=== PATIENT | female | born 1955 | race Caucasian/White ===

== ENCOUNTER 2019-08-13 13:29 | Observation (INO) | payer MEDICARE, MEDICAID, SELFPAY ==
[2019-08-13 13:40] VITALS: BP 156/88; PULSE 77; RESP 16; TEMP 36.4; O2SAT 98
--- NOTE | 2019-08-13 14:25 | W.ED.GENAD ---
Discharge Plan Disposition Patient Disposition: [facility] INPATIENT Condition: Stable Discharge Details Chief Complaint: PsychEval Clinical Impression: Acute depression Admit Date/Time: 08/13/19 21:12 Admit Provider: Elan Gonzales Attending Provider: Elan Gonzales Primary Care Provider: Mario Dalton ED Provider: Donnell Perdomo Discharge Data Discharge Date/Time-TO BE ENTERED AT DEPARTURE: 08/13/19 21:42 Medical Decision Making <CECILE Borrego - Last Filed: 08/14/19 16:35> This is a suicidal 63-year-old woman who presents to the ER extremely suicidal with plan and intent to harm herself. Patient does not want to fully disclose her mental health issues to me but does consent to seeing mental health provider. Patient feeling extremely anxious currently was given a dose of Valium 5 mg orally for her symptomatic relief. Patient is medically cleared for psych evaluation <Donnell Perdomo MD - Last Filed: 08/13/19 20:43> Received signout from Ms. Delaney. Please see her note regarding details initial presentation, plan of care. Patient medically stable and interviewed by mental health. Referral was placed to inpatient psychiatry. Huddle performed with care management. Patient care sitter at bedside. Patient awaits further disposition at 8:30 PM informed that no beds available tonight. Patient will be admitted pending further psychiatric disposition.. HPI <CECILE Borrego - Last Filed: 08/14/19 16:35> General Date/Time Provider Initiated Documentation: 08/13/19 14:22. HPI Narrative: Patient presents for psych evaluation. Patient is a 63-year-old woman who reports she is feeling extremely suicidal. She states she will kill herself. Patient reports specifically a plan to overdose on her medications and run her car in her garage. Patient denies specific medical concerns at this time. Patient does admit to feeling quite anxious at this time. Patient does not want to discuss circumstances for which she feels suicidal. She does consent to speaking with a mental health provider. Related Data Home Medications Medication Instructions Recorded Confirmed clonazepam 3 mg PO DAILY 08/13/19 08/13/19 melatonin 6 mg PO DAILY 08/13/19 08/13/19 quetiapine [Seroquel] 100 mg PO DAILY 08/13/19 08/13/19 ranitidine HCl 300 mg PO BID 08/13/19 08/13/19 ciprofloxacin HCl 250 mg PO Q12H #6 tab 08/14/19 magnesium oxide 500 mg PO DAILY #10 cap 08/14/19 Previous Rx's Medication Instructions Recorded ciprofloxacin HCl 250 mg PO Q12H #6 tab 08/14/19 magnesium oxide 500 mg PO DAILY #10 cap 08/14/19 Allergies Allergy/AdvReac Type Severity Reaction Status Date / Time levofloxacin [From Levaquin] Allergy Intermediate Swelling/Ed Unverified 08/13/19 13:46 annalisa trazodone AdvReac Intermediate Other (See Unverified 08/13/19 13:46 Comment) General Stated Complaint: PsychEval DAIN: 2 Review of Systems <CECILE Borrego - Last Filed: 08/14/19 16:35> Review of Systems ROS Unobtainable: All systems reviewed & are unremarkable except as noted in HPI and below Constitutional Constitutional: Denies chills and Denies fever(s) Respiratory Respiratory: Denies cough and Denies wheezing Psychiatric Psychiatric: Reports anxiety, Reports hopelessness and Reports suicidal ideation Allergic/Immunologic Allergic/Immunologic: Denies wheezing PFSH <CECILE Borrego - Last Filed: 08/14/19 16:35> Medical History Anxiety (Chronic) Depression (Chronic) Surgical History History of cholecystectomy (Chronic) History of hysterectomy (Chronic) Social History Smoking/Tobacco Use Status: Former Tobacco Use Alcohol Intake: current Alcohol Intake frequency: a few times a week Substance use type: does not use Do you feel safe at home: Yes Do you feel safe in your relationship?: Yes Exam <CECILE Borrego - Last Filed: 08/14/19 16:35> Narrative Exam Narrative: CONST: Healthy appearing patient, in no acute distress. Well hydrated. Alert and alert. HENMT: Head nomocephalic, normal to inspection. Atraumatic. Hearing grossly normal. EYES: General normal appearance. Alignment normal. Eyelids normal. Conjunctiva normal. NECK: Normal visual inspection. FROM. Trachea midline. No Midline tenderness. CHEST: Normal insepection of the chest. RESP: Normal respiratory effort. Speaking full sentences. No cough. No audible wheezing. No retractions. CARDIO: No JVD. MUSCULOSKELETAL: Normal Gait. FROM of all extremities. SKIN: Normal. Dry. No rashes. NEURO: Alert and awake. Speech clear. PSYCH: Depressed, tearful. Cooperative. Course <CECILE Borrego - Last Filed: 08/14/19 16:35> Vital Signs Vital signs: Vital Signs Temperature 36.4 C L 08/13/19 13:40 Pulse 77 08/13/19 13:40 Respiratory Rate 16 08/13/19 13:40 Blood Pressure 156/88 H 08/13/19 13:40 Pulse Oximetry 98 08/13/19 13:40 Temperature 36.4 C L 08/13/19 13:40 Temperature Source Tympanic 08/13/19 13:40 Pulse 77 08/13/19 13:40 Respiratory Rate 16 08/13/19 13:40 Respiratory Effort 08/13/19 13:43 Blood Pressure 156/88 H 08/13/19 13:40 Blood Pressure Position Supine 08/13/19 13:40 Pulse Oximetry 98 08/13/19 13:40 Oxygen Delivery Method Room Air 08/13/19 13:40 Oxygen Flow Rate 0 08/13/19 13:40 Pain Level 0 08/13/19 13:40 Sign Out <CECILE Borrego - Last Filed: 08/14/19 16:35> Sign Out Data: Sign Out Comment: Signed out pending disposition per mental health for suicidal ideation Last updated by Paradise Lange PA at 08/13/19 16:22
[2019-08-13 14:28] LABS: Bilirubin Negative (Negative); Blood Trace-lysed (Negative); Clarity Sl Cloudy (Clear); Glucose Negative (Negative); Ketones 15 mg/dL (Negative); Leukocyte Esterase Large (Negative); Nitrite Negative (Negative); Specific Gravity 1.015 (1.005-1.025); Urobilinogen 0.2 EU/dL (Up TO 0.2)
--- NOTE | 2019-08-13 14:36 | NUR.NOTE ---
Nursing Note: food ordered .
[2019-08-13 14:39] LABS: Bacteria Many HPF (Negative); C & S Indicated? Yes; Casts Negative LPF (Negative); Crystals Negative HPF (Negative); Epithelial Cells Many HPF (Negative); Mucus Negative (Negative); Other Cells Few Transitional (Negative); WBC >50 HPF (0-5)
[2019-08-13] MEDS: diazePAM 5 MG TAB PO (14:44)
--- NOTE | 2019-08-13 14:54 | NUR.NOTE ---
pt medicated as per mdo tolorating po intake Nursing Note:
[2019-08-13 15:03] LABS: Abs Immature Grans 0.01 k/cumm (0.0-0.09); Absolute Basophil Count 0.04 k/cumm (0.0-0.2); Absolute Eosinophil Count 0.05 k/cumm (0.0-0.7); Absolute Lymphocyte Count 1.18 k/cumm (1.2-3.4); Absolute Monocyte Count 0.61 k/cumm (0.11-0.7); Absolute Neutrophil Count 3.83 k/cumm (1.2-6.7); Basophils % 0.7; Eosinophils % 0.9; HCT 37.1 % (36.0-46.0); HGB 12.3 g/dL (12.0-15.5); Immature Grans % 0.2; Lymphocytes % 20.6; Mean Corp. HGB Concentration 33.2 g/dL (32.0-36.0); Mean Corpuscular Hemoglobin 32.8 pg (27.0-33.0); Mean Corpuscular Volume 98.9 fL (80-95); Mean Platelet Volume 9.7 fL (8.0-11.0); Monocytes % 10.7; Neutrophils % 66.9; Platelet Count 257 x1000/uL (130-400); RBC 3.75 m/cumm (4.00-5.20); RBC Distribution Width 14.5 % (11.7-14.6); White Blood Cell Count 5.72 k/cumm (4.4-10.8)
--- NOTE | 2019-08-13 15:06 | NUR.NOTE ---
Nursing Note: Patient is in with mental health at this very moment.
[2019-08-13 15:16] LABS: *AMPHETAMINES SCREEN URINE Negative (Negative); *BARBITURATES SCREEN URINE Negative (Negative); *BENZODIAZEPINES SCREEN URINE Negative (Negative); Cannabinoids THC Negative (Negative); Cocaine Screen,Urine Negative (Negative); METHADONE URINE SCREEN Negative (Negative); OPIATES URINE SCREEN Negative (Negative)
[2019-08-13 15:22] LABS: Magnesium 1.6 mg/dL (1.8-2.4)
[2019-08-13 15:25] LABS: Tricyclic Antidepressants Negative (Negative)
[2019-08-13 15:34] LABS: ALT 19 U/L (14-59); AST 20 U/L (15-37); Albumin 4.1 g/dL (3.4-5.0); Alkaline Phosphatase 66 U/L (46-116); Anion Gap 9.4 mmol/L (3-11); BUN 11 mg/dL (7-18); Bilirubin, Total 0.7 mg/dL (0.2-1.0); CO2 29.6 mmol/L (21.0-32.0); CREATININE 0.82 mg/dL (0.55-1.02); Calcium 10.1 mg/dL (8.5-10.1); Chloride 99 mmol/L (98-107); Glucose 91 mg/dL (70-100); Potassium 3.7 mmol/L (3.5-5.1); Sodium 138 mmol/L (136-145); TSH 0.91 uIU/mL (0.36-3.74); Total Protein 7.6 g/dL (6.4-8.2)
[2019-08-13 15:41] LABS: Salicylate < 2.8 mg/dL (2.8-20.0)
[2019-08-13 15:43] LABS: Acetaminophen < 2 ug/mL (10-30)
[2019-08-13 15:52] LABS: ETHANOL BLOOD < 3.0 mg/dL (<3)
[2019-08-13] MEDS: Magnesium Oxide 400 MG TAB PO (16:16)
--- NOTE | 2019-08-13 17:17 | PDOC.CMSAFED ---
- If Service Date Differs Date of service: 08/13/19 Time of Service: 17:17 Care Management Safety Plan Sadnra is a 63 year old woman who presented to the ED with depression and suicidal ideation. She is from the [facility] but because she has relatives who work in the local hospital there, she chose to come to [facility]. Sandra has had several hospitalizations for depression and has made suicide attempts in the past. She has admitted to having a plan for suicide (automobile with a hose and overdose of medication) and she also has intent. Sandra is seeking voluntary treatment for her depression. She was seen by Monroe, a Mental Health crisis screener, and referrals have been sent to [facility] and [facility]. SHANNON met with Sandra who appeared sad, withdrawn and anxious. She was wrapped in a blanket and was crying while talking. SHANNON discussed the safety plan and [facility] policy with her and she agreed to all of the provisions outlined below. She did request that she be able to speak to her son Durga by phone. An interdepartmental huddle was coordinated by SHANNON for safety planning considerations and was attended by Monroe, crisis screener, Lynnette, Nursing Field Advisor, VIRGINIA Flores, Dr. Perdomo and SHANNON Holt. and meet with patient to review [facility] policy and safety plan, establish individual wishes for treatment and maintain patient rights. Josep note safety plan below to guide patient care, establish individual wishes for treatment and maintain patient rights. SAFETY PLAN: 1. Will remain on suicide precautions and in paper clothes. 2. Will remain in room under direct supervision of one-on-one staff at all times provided by DION, DEZ flake or shred roll operator. 3. May have paper cups, plates, finger foods as well as a cardboard spoon with which to eat meals. 4. Follow [facility] Management of the Admitted Behavioral Health Patient policy. 5. Comfort bath system only. 6. No personal belongings 7. No visitors. 8. Phone contact limited to son Durga, at the discretion of nursing. 9. Due to VOLUNTARY status, if patient wishes to leave [facility], the [facility] harvest worker field crop must be contacted to re-evaluate patient prior to patient exiting the building.
[2019-08-13] MEDS: diazePAM 2 MG TAB 2.5 MG PO (18:13)
--- NOTE | 2019-08-13 18:16 | NUR.NOTE ---
pt having increased anxiety md made aware orders recived for medication pt agree able to taking medications Nursing Note:
--- NOTE | 2019-08-13 19:12 | NUR.NOTE ---
Assumed care of pt, report from partha. Pt lying in bed in NAD. 1:[address] Pt feeling more calm s/p medication. Discussed plan with pt, aware awaiting inpt placement. Pt states she does not want to go to [facility]. Offered warm blanket, beverage, pt declined.
--- NOTE | 2019-08-13 20:36 | NUR.NOTE ---
Per mental health, no bed available tonight. Pt agreeable to being admitted and having re-eval. Phone provided, pt called mother to inform of admission.
[2019-08-13 21:02] VITALS: BP 131/83; PULSE 69; RESP 16; TEMP 37.1; O2SAT 94
--- NOTE | 2019-08-13 21:20 | W.PM.HP.N ---
Date of service: 08/13/19 Time of Service: 21:20 Assessment and Plan Assessment and plan (1) Suicidal ideation: Status: Acute Assessment and plan: This is a 63-year-old lady here for suicidal ideation with a plan. She is awaiting voluntary inpatient psychiatric evaluation and treatment. She will be observed one-on-one for safety. (2) Anxiety: Status: Chronic Assessment and plan: Patient usually is on Klonopin but for now will be given Valium as needed during his hospital stay. (3) Depression: Status: Chronic Assessment and plan: Patient will be evaluated and treated further for depression with as an inpatient but for now will be continued on her usual outpatient medication. Qualifiers: Active/Remission status: currently active Depression Type: major depressive disorder Major depression episode severity: severe Major depression recurrence: recurrent Psychotic features: without psychotic features Qualified Code(s): F33.2 - Major depressive disorder, recurrent severe without psychotic features (4) Pyuria, sterile: Status: Acute Assessment and plan: Patient is asymptomatic but will be observed for symptoms while culture is pending and if culture appears positive start oral therapy in the morning. History of Present Illness History of Present Illness Chief Complaint: Suicidal ideation with plan Narrative: This is a 63-year-old lady who was brought to the emergency room for evaluation by psychiatry because of suicidal ideation with plans to overdose on the medicines that she had at home or to kill herself with carbon monoxide in her garage with her car running. She did not want to discuss the details of her suicidal thoughts with the medical team but did review this with psychiatry who could not place her into voluntary inpatient psychiatric care tonight, therefore she is to be admitted to the medical floor for observation. She did have labs that showed a low magnesium and was placed on oral magnesium and also had a urine that looked possibly infected with a culture pending but no symptoms reported. She is allergic to Levaquin and not was started on treatment and this will be held until further culture reports or if she has symptoms. This can be reviewed in the morning. The patient was withdrawn and not wanting to talk when I first met her with the sheets pulled over her head. She offers no complaints. Review of Systems Review of Systems Narrative: 13 point review of systems otherwise unrevealing or negative as patient allows with history. [facility] Medical History Anxiety (Chronic) Depression (Chronic) Surgical History History of cholecystectomy (Chronic) History of hysterectomy (Chronic) Social History Smoking/Tobacco Use Status: Former Tobacco Use Alcohol Intake: current Alcohol Intake frequency: a few times a week Substance use type: does not use Do you feel safe at home: Yes Do you feel safe in your relationship?: Yes Meds Home Medications and Allergies Home Medications Medication Instructions Recorded Confirmed Type clonazepam 3 mg PO DAILY 08/13/19 08/13/19 History melatonin 6 mg PO DAILY 08/13/19 08/13/19 History quetiapine [Seroquel] 100 mg PO DAILY 08/13/19 08/13/19 History ranitidine HCl 300 mg PO BID 08/13/19 08/13/19 History Allergies Allergy/AdvReac Type Severity Reaction Status Date / Time levofloxacin [From Levaquin] Allergy Intermediate Swelling/Ed Unverified 08/13/19 13:46 annalisa trazodone AdvReac Intermediate Other (See Unverified 08/13/19 13:46 Comment) Exam Narrative Exam Narrative: CONST: Healthy appearing patient, in no acute distress. Well hydrated. Alert and alert. Flattened affect with poor eye contact. HENMT: Head nomocephalic, normal to inspection. Atraumatic. Hearing grossly normal. EYES: General normal appearance. Alignment normal. Eyelids normal. Conjunctiva normal. NECK: Supple, FROM. Trachea midline. No Midline tenderness. CHEST: Normal insepection of the chest. RESP: Normal respiratory effort and clear. Speaking full sentences. No cough. No audible wheezing. No retractions. CARDIO: No JVD. RRR without mumur/gallop. MUSCULOSKELETAL: Normal Gait in ER. FROM of all extremities. No edema, clubbing or cyanosis. SKIN: Darkly tanned and brown. Dry. No rashes. NEURO: Alert and awake. Speech clear. CN II through XII grossly intact, no focal motor deficits. PSYCH: Depressed, tearful. Cooperative. Results Labs Result diagrams: 08/13/19 14:55 08/13/19 14:55 Labs: Laboratory Results - last 24 hr 08/13/19 08/13/19 08/13/19 14:20 14:20 14:55 WBC RBC Hgb Hct MCV MCH MCHC RDW Plt Count MPV Immature Gran % Neutrophils % Lymphocytes % Monocytes % Eosinophils % Basophils % Absolute Neutrophils Absolute Lymphocytes Absolute Monocytes Absolute Eosinophils Absolute Basophils Sodium 138 Potassium 3.7 Chloride 99 Carbon Dioxide 29.6 Anion Gap 9.4 BUN 11 Creatinine 0.82 Estimated GFR/1.73 m2 >= 60.00 Glucose 91 Calcium 10.1 Magnesium Total Bilirubin 0.7 AST 20 ALT 19 Alkaline Phosphatase 66 Total Protein 7.6 Albumin 4.1 TSH 0.91 Urine Color Yellow Urine Clarity Sl cloudy Urine pH 6.0 Ur Specific [place] 1.015 Urine Protein Negative Urine Ketones 15 H Urine Blood Trace-lysed H Urine Nitrite Negative Urine Bilirubin Negative Urine Urobilinogen 0.2 Ur Leukocyte Esterase Large H Urine RBC 3-5 H Urine WBC >50 Ur Epithelial Cells Many Urine Crystals Negative Urine Bacteria Many Urine Casts Negative Urine Mucus Negative Urine Other Few transitional Ur Culture Indicated? Yes Urine Glucose Negative Salicylates Urine Opiates Screen Negative Urine Methadone Screen Negative Acetaminophen Ur Barbiturates Screen Negative Ur Tricyclics Screen Negative Ur Amphetamines Screen Negative U Benzodiazepines Scrn Negative Urine Cocaine Screen Negative Ur THC Screen Negative Ethyl Alcohol < 3.0 08/13/19 08/13/19 08/13/19 14:55 14:55 14:55 WBC 5.72 RBC 3.75 L Hgb 12.3 Hct 37.1 MCV 98.9 H MCH 32.8 MCHC 33.2 RDW 14.5 Plt Count 257 MPV 9.7 Immature Gran % 0.2 Neutrophils % 66.9 Lymphocytes % 20.6 Monocytes % 10.7 Eosinophils % 0.9 Basophils % 0.7 Absolute Neutrophils 3.83 Absolute Lymphocytes 1.18 L Absolute Monocytes 0.61 Absolute Eosinophils 0.05 Absolute Basophils 0.04 Sodium Potassium Chloride Carbon Dioxide Anion Gap BUN Creatinine Estimated GFR/1.73 m2 Glucose Calcium Magnesium 1.6 L Total Bilirubin AST ALT Alkaline Phosphatase Total Protein Albumin TSH Urine Color Urine Clarity Urine pH Ur Specific [place] Urine Protein Urine Ketones Urine Blood Urine Nitrite Urine Bilirubin Urine Urobilinogen Ur Leukocyte Esterase Urine RBC Urine WBC Ur Epithelial Cells Urine Crystals Urine Bacteria Urine Casts Urine Mucus Urine Other Ur Culture Indicated? Urine Glucose Salicylates < 2.8 L Urine Opiates Screen Urine Methadone Screen Acetaminophen < 2 L Ur Barbiturates Screen Ur Tricyclics Screen Ur Amphetamines Screen U Benzodiazepines Scrn Urine Cocaine Screen Ur THC Screen Ethyl Alcohol Last Vital Signs Temp 37.1 C 08/13/19 21:02 Pulse 69 08/13/19 21:02 Resp 16 08/13/19 21:02 BP 131/83 08/13/19 21:02 Pulse Ox 94 L 08/13/19 21:02
--- NOTE | 2019-08-13 21:38 | NUR.NOTE ---
report to Chiquita. pt to go to room 234
[2019-08-13 22:04] VITALS: BP 145/79; PULSE 72; RESP 18; TEMP 37.1; O2SAT 96
[2019-08-13] MEDS: Melatonin 3 MG TAB PO (22:26)
[2019-08-13] MEDS: QUEtiapine 100 MG TAB PO (22:26)
[2019-08-14] MEDS: Mylanta Suspension 30 ML CUP PO (06:05)
[2019-08-14] MEDS: Magnesium Oxide 400 MG TAB PO (12:41)
--- NOTE | 2019-08-14 13:42 | DSE_ITS ---
Date of service: 08/14/19 Time of Service: 13:42 DS: Diagnosis Discharge Diagnosis (1) Suicidal ideation: Status: Acute (2) Anxiety: Status: Chronic (3) Depression: Status: Chronic (4) Pyuria, sterile: Status: Acute Discharge Plan Disposition Patient Disposition: HOME Condition: Stable Discharge Details Chief Complaint: PsychEval Clinical Impression: Acute depression Reason For Visit: SUICIDAL IDEATION Admit Date/Time: 08/13/19 21:12 Admit Provider: Elan Gonzales Attending Provider: Elan Gonzales Primary Care Provider: Mario Dalton ED Provider: Donnell Perdomo Hospital Course Hospital Course: Sandra Hopson is a very pleasant 63 year old female with a past medical history of depression and anxiety who presented to the [facility] ED on 08/13/19 with suicidal ideation with a plan to overdose on medication or to sit in her garage in her car with it running in an attempt be poisoned by carbon monoxide. Her labs at the time of admission were notable for low magnesium, and urinalysis which showed leukocyte esterase. She was admitted to the transition unit on voluntary status with a mental health consult. By the following morning, she reported feeling better. She was alert and talkative. She denied suicidal ideation. She was cleared for discharge home by mental health with a plan for support in the community. She endorsed dysuria and cloudy urine. Her urine culture was growing 50-100,000 colonies of gram positive maxim. She reports that she has tolerated cipro in the past. She will be discharged home on Cipro. She is also discharged home with magnesium supp lementation and follow up magnesium level ordered. She will follow up with her PCP next week on 08/24/19 as scheduled. Home Meds and New Rx's Prescriptions: New ciprofloxacin HCl 250 mg tablet 250 mg PO Q12H Qty: 6 RF: 0 magnesium oxide 500 mg capsule 500 mg PO DAILY Qty: 10 RF: 0 Continued ranitidine HCl 300 mg Tablet 300 mg PO BID RF: 0 clonazepam 1 mg Tablet 3 mg PO DAILY RF: 0 melatonin 3 mg Tablet 6 mg PO DAILY RF: 0 quetiapine [Seroquel] 100 mg Tablet 100 mg PO DAILY RF: 0 Discharge Instructions Instructions: Urinary Tract Infection in Women (DC), Suicide Prevention for Adults (DC) Additional Instructions: Take magnesium daily. Take antibiotics until they are gone. Follow up with your PCP next week. Follow up as planned with [facility]. Return to the ED as needed. Take care! Stand Alone Forms: Nursing Discharge Form Referrals: Mario Dalton [Primary Care Provider] - 08/21/19 12:40 pm Activity:: Activity as Tolerated Equipment/Supplies:: No Equipment Needed Diet:: As Tolerated Discharge Orders Discharge Orders: Discharge Order (Routine); Ordered 08/14/19 Ordered By: Adriana Guevara Other Ambulatory Orders: Magnesium (Routine) Timeframe: [id number] Location: None Selected Ordered By: Adriana Guevara DS: Summary Status at Discharge Functional status at discharge: independent ambulation Overall status at discharge: patient is back to baseline Mental Status: mental status grossly normal Speech and Movement: speech and movement normal Mood: congruent mood Affect: normal affect Exam Narrative Exam Narrative: General: well appearing, awake and alert, sitting up on stretcher. In NAD. Psyche: pleasant mood, talkative, smiling. HEENT: normocephalic, atraumatic, pupils equal and round, EOMI, mucous membranes moist. Neck: supple, no JVD. Cardiovascular: heart has regular rate and rhythm, no murmur appreciated. Respiratory: respirations even and unlabored, lung sounds clear bilaterally. Extremities: no clubbing, cyanosis or edema. Psych Mental Status: mental status grossly normal Speech and Movement: speech and movement normal Mood: congruent mood Affect: normal affect DS: Data Vitals/I&O Vitals and I&O: Vital Signs Temperature 37.1 C 08/13/19 22:04 Temperature Source Oral 08/13/19 21:02 Pulse 72 08/13/19 22:04 Pulse Rhythm Regular 08/13/19 22:04 Respiratory Rate 18 08/13/19 22:04 Respiratory Effort 08/14/19 00:03 Respiratory Depth Normal 08/14/19 00:03 Respiratory Pattern Normal 08/14/19 00:03 Blood Pressure 145/79 H 08/13/19 22:04 Blood Pressure Position Supine 08/13/19 13:40 Pulse Oximetry 96 08/13/19 22:04 Oxygen Delivery Method Room Air 08/13/19 22:04 Oxygen Flow Rate 0 08/13/19 22:04 Pain Level 0 08/13/19 21:02 Intake & Output 08/13/19 08/14/19 08/14/19 23:59 11:59 23:59 Weight 58.967 kg Other: Comment [facility] Methods Toilet Data Completed and Pending Labs on day of discharge: Labs from last 24 hours 08/13/19 08/13/19 08/13/19 14:55 14:55 14:55 WBC 5.72 RBC 3.75 L Hgb 12.3 Hct 37.1 MCV 98.9 H MCH 32.8 MCHC 33.2 RDW 14.5 Plt Count 257 MPV 9.7 Immature Gran % 0.2 Neutrophils % 66.9 Lymphocytes % 20.6 Monocytes % 10.7 Eosinophils % 0.9 Basophils % 0.7 Absolute Neutrophils 3.83 Absolute Lymphocytes 1.18 L Absolute Monocytes 0.61 Absolute Eosinophils 0.05 Absolute Basophils 0.04 Sodium Potassium Chloride Carbon Dioxide Anion Gap BUN Creatinine Estimated GFR/1.73 m2 Glucose Calcium Magnesium 1.6 L Total Bilirubin AST ALT Alkaline Phosphatase Total Protein Albumin TSH Urine Color Urine Clarity Urine pH Ur Specific [place] Urine Protein Urine Ketones Urine Blood Urine Nitrite Urine Bilirubin Urine Urobilinogen Ur Leukocyte Esterase Urine RBC Urine WBC Ur Epithelial Cells Urine Crystals Urine Bacteria Urine Casts Urine Mucus Urine Other Ur Culture Indicated? Urine Glucose Salicylates < 2.8 L Urine Opiates Screen Urine Methadone Screen Acetaminophen < 2 L Ur Barbiturates Screen Ur Tricyclics Screen Ur Amphetamines Screen U Benzodiazepines Scrn Urine Cocaine Screen Ur THC Screen Ethyl Alcohol 08/13/19 08/13/19 08/13/19 14:55 14:20 14:20 WBC RBC Hgb Hct MCV MCH MCHC RDW Plt Count MPV Immature Gran % Neutrophils % Lymphocytes % Monocytes % Eosinophils % Basophils % Absolute Neutrophils Absolute Lymphocytes Absolute Monocytes Absolute Eosinophils Absolute Basophils Sodium 138 Potassium 3.7 Chloride 99 Carbon Dioxide 29.6 Anion Gap 9.4 BUN 11 Creatinine 0.82 Estimated GFR/1.73 m2 >= 60.00 Glucose 91 Calcium 10.1 Magnesium Total Bilirubin 0.7 AST 20 ALT 19 Alkaline Phosphatase 66 Total Protein 7.6 Albumin 4.1 TSH 0.91 Urine Color Yellow Urine Clarity Sl cloudy Urine pH 6.0 Ur Specific [place] 1.015 Urine Protein Negative Urine Ketones 15 H Urine Blood Trace-lysed H Urine Nitrite Negative Urine Bilirubin Negative Urine Urobilinogen 0.2 Ur Leukocyte Esterase Large H Urine RBC 3-5 H Urine WBC >50 Ur Epithelial Cells Many Urine Crystals Negative Urine Bacteria Many Urine Casts Negative Urine Mucus Negative Urine Other Few transitional Ur Culture Indicated? Yes Urine Glucose Negative Salicylates Urine Opiates Screen Negative Urine Methadone Screen Negative Acetaminophen Ur Barbiturates Screen Negative Ur Tricyclics Screen Negative Ur Amphetamines Screen Negative U Benzodiazepines Scrn Negative Urine Cocaine Screen Negative Ur THC Screen Negative Ethyl Alcohol < 3.0 Preliminary micro results at discharge 08/13/19 14:20 Urine Culture - Preliminary Urine - Reflex from Ua Gram Positive Maxim PFSH Medical History Anxiety (Chronic) Depression (Chronic) Surgical History History of cholecystectomy (Chronic) History of hysterectomy (Chronic) Social History Smoking/Tobacco Use Status: Former Tobacco Use Alcohol Intake: current Alcohol Intake frequency: a few times a week Substance use type: does not use Do you feel safe at home: Yes Do you feel safe in your relationship?: Yes
--- NOTE | 2019-08-14 17:09 | PDOC.CMDIS ---
- If Service Date Differs Date of service: 08/14/19 Time of Service: 17:09 LACE Index Scoring Tool - Questions: Length of Stay (in days): 1 Acuity (Admit via E.D.?): Yes E.D. Visits: 1 - Answers: Total Score: 5 Risk of Readmission: Low Risk Care Management Discharge Reason for Hospitalization: suicidal ideation Discharge Plan: Sandra will be discharged home and follow up with her care providers. She will receive phone calls from crisis screeners 2-3 times a day for the next few days. She will transport by herself via private vehicle. Patient/Family Education Needs: Discharge plan, limitations, follow up care, Ask Me Three.
== END 2019-08-14 14:18 | disposition home or self-care (01) ==
LOC: ER 21:20 → MS 21:46
PROVIDERS: Physician Assistant; Admitting Provider Family Medicine; Emergency Provider Emergency Medicine; PCP Family Medicine; Visit Provider Internal Medicine
DX: F32.89 Other specified depressive episodes (principal); R45.851 Suicidal ideations; F41.9 Anxiety disorder, unspecified; R82.81 Pyuria; E83.42 Hypomagnesemia; Z75.1 Person awaiting admission to adequate facility elsewhere; B95.1 Streptococcus, group B, as the cause of diseases classified elsewhere
CPT/HCPCS: 36415; 80053; 80307; 87077; 99219; 99239; 99285; 80320; 80329; 81003; 81015; 83735; 84443; 85025; 87086; 87186; 99217; 99284; G0378

== ENCOUNTER 2020-12-02 14:55 | Emergency (ER) | payer MEDICARE, MEDICAID, SELFPAY ==
[2020-12-02 15:01] VITALS: BP 161/95; PULSE 107; RESP 20; TEMP 36.9; O2SAT 95
--- OUTSIDE RECORDS SUMMARY | 2020-12-02 15:25 | XMS_ITS ---
:1955 Author Care Team Providers Name Role Phone LEANNE ROSA MD Primary Care Provider [phone] JACK BAUER MD General Surgeon [phone] Allergies Code Code System Name Reaction Severity Status Onset 709886 RxNorm Levaquin ? ? Active ? 06535 RxNorm Tramadol ? ? Active ? 459996 RxNorm Lamictal ? ? Deactivated ? Notes: 07/24/2020 reviewed Medications Name Status Start Date Stop Date ? ? acetaminophen 300 mg-codeine 30 mg tablet Completed 200910/23/2010 1-2 Tablet: every 4-6 hours as needed Activella 1 mg-0.5 mg tablet Completed 03/26/2009 Tablet: QD Adderall 5 mg tablet Completed 06/26/2013 07/30/2013 1 Tablet: oral daily albuterol sulfate 1.25 mg/3 mL solution for nebulization Complet ed 01/12/2017 07/15/2017 1 (one) nebule nebule: twice a day as needed for coughing/s hortness of breath amoxicillin 875 mg-potassium Completed ? 09/2020 clavulanate 125 mg tablet aspirin 81 mg tablet,delayed release Completed 08/09/2013 02/06/2014 1 (one) Tablet DR: daily atenolol 25 mg tablet Completed 08/14/2008 08/14/2008 1 (one) Tablet: Daily Ativan 1 mg tablet Completed 01/10/2015 05/13/2015 1 (one) Tablet: tid - three times a day azithromycin 250 mg tablet Completed ? 06/04 bacitracin 500 unit/gram eye Completed ? 04/2018 ointment Bactrim DS 800 mg-160 mg tablet Completed 08/17/2014 08/27/2014 1 (one) Tablet: every 12 hrs Belsomra 20 mg tablet Completed 08/21/2015 08/21/2015 1 (one) Tablet: at bedtime Calcium 500 + D 500 mg (1,250 mg)-200 unit tablet Completed 02/04/2015 05/13/2015 1 (one) Tablet Tablet: twice daily as needed ciprofloxacin 250 mg tablet Completed ? 08/07 Take 1 tablet every 12 hours by oral route. ciprofloxacin 500 mg tablet Completed ? 08/07 citalopram 10 mg tablet Completed 08/09/2013 02/07/20 14 1 Tablet: daily clonazepam 0.5 mg tablet Completed ? 018 clonazepam 1 mg tablet Active ? Not avail able cod liver oil capsule Completed 07/01/2010 07/01/2010 1 (one) Capsule: daily Combivent 18 mcg-103 mcg/actuation aerosol inhaler Completed 06/17/2013 07/30/2013 2 (two) puff(s): qid - four times a day Combivent Respimat 20 mcg-100 mcg/actuation solution for inhalat ion Completed ? 08/21/2019 Inhale 1 puff 4 times a day by inhalation route. Cymbalta 30 mg capsule,delayed release Completed 8 09/13/2008 1 (one) Capsule Part: daily Cytomel 25 mcg tablet Completed 10/19/2013 11/18/2013 1 Tablet: daily diazepam 5 mg tablet Active ? Not availab le doxepin 25 mg capsule Completed 10/25/2014 02/10/2015 1 (one) Capsule: qd - daily esomeprazole magnesium 40 mg capsule,delayed release Completed ? 04/17/2020 TAKE ONE CAPSULE BY MOUTH EVERY DAY metronidazole 500 mg tablet Active ? Not available Floranex 100 million cell oral granules in packet Completed 07/15/2017 07/26/2017 1 (one) Packet: three times daily folic acid 1 mg tablet Completed 05/08/2015 7 1 (one) Tablet: daily gabapentin 400 mg capsule Completed 06/19/20142013 2 (two) Capsule: at bedtime Geodon 20 mg capsule Completed 07/23/2008 07/23/2008 1 (one) Capsule: two times daily Glucosamine-Chondroitin Complex capsule Completed 02/11/20 10 02/10/2010 1 (one) Capsule: three times daily Guaifenesin AC 10 mg-100 mg/5 mL oral liquid Completed 01/201302/07/2013 5-10 ml Syrup: every 4 to 6 hours as needed for cough hydrochlorothiazide 25 mg tablet Completed 07/02/2013 07/12/2013 1 Tablet: daily hydroxyzine HCl 50 mg tablet Completed 05/07/201408/2014 1 (one) Tablet: Every 6 hours as needed ibuprofen 800 mg tablet Completed 08/17/2014 01/11/20 15 1 (one) Tablet Tablet: every 8 hrs as needed Imodium A-D 2 mg tablet Completed 10/13/2010 10/13/20 10 1 (one) Tablet: three times daily, as needed Incruse Ellipta 62.5 mcg/actuation powder for inhalation Complet ed 11/23/2016 07/26/2017 1 (one) Aero Pow Br Act Aero Pow Br Act: daily indomethacin 50 mg capsule Completed 07/01/201007/01 1 (one) Capsule: three times daily ipratropium 0.5 mg-albuterol 3 mg (2.5 mg base)/3 mL n ebulization soln Completed ? 08/21/2019 1 Solution: qid - four times a day Keflex 500 mg capsule Active ? Not availa ble Take 1 capsule every 6 hours by oral route for 10 days. Klor-Con M20 mEq tablet,extended release Completed 014 11/27/2014 1 (one) Tablet ER Tablet ER: DAILY lamotrigine 100 mg tablet Active ? Not av ailable Take 0.5 tablets every day by oral route. lamotrigine 25 mg tablet Active ? Not abdirahman ilable Take 2 tablets every day by oral route. Levaquin 500 mg tablet Completed 10/21/2009 9 1 (one) Tablet: daily diphenoxylate-atropine 2.5 Active ? Not a vailable mg-0.025 mg tablet Maalox Maximum Strength 400 mg-400 mg-40 mg/5 mL oral suspen stas Completed 08/09/2013 08/09/2013 15 Milliliter(s): four times daily, as needed Macrobid 100 mg capsule Completed 08/01/2017 08/06/20 17 1 (one) Capsule: two times daily magnesium 400 mg (as magnesium oxide) capsule Completed 07/26/2017 Capsule: daily magnesium gluconate 27 mg magnesium (500 mg) tablet Completed ? 08/20/2019 Take 0.5 tablets 4 times a day by oral route for 7 days. magnesium oxide 400 mg (241.3 mg magnesium) tablet Completed 08/22/2013 09/30/2014 1 (one) Tablet: two times daily magnesium oxide 500 mg tablet Active ? No t available TAKE ONE TABLET BY MOUTH EVERY DAY meclizine 25 mg chewable tablet Completed 10/23/2010 10/23/2010 as Directed Tablet Chewable: As directed melatonin 3 mg tablet Active ? Not availa ble Take 2 tablets every day by oral route at bedtime. methimazole 5 mg tablet Completed 09/30/2014 10/25/20 14 1 (one) Tablet: three times daily mirtazapine 15 mg tablet Completed 03/26/2009 009 1 (one) Tablet: at bedtime naltrexone 50 mg tablet Completed 05/08/2015 08/21/20 15 1 (one) Tablet: once daily Nexium Packet 20 mg granules delayed release for susp Completed 07/16/2008 07/20/2008 unknown Packet: two times daily nicotine 14 mg/24 hr daily transdermal patch Completed 10/03/2013 1 Patch 24HR: qd - daily nicotine 21 mg/24 hr daily transdermal patch Completed 06/26/2013 1 Patch 24HR: qd - daily nicotine 21mg/24hr-14mg/24hr-7mg/24hr daily transderm patches,sequentl Completed 08/12/2009 10/21/2009 1 (one) Patch(es): daily nicotine 7 mg/24 hr daily transdermal patch Completed 10/0712/17/2013 1 Patch 24HR: daily nitrofurantoin macrocrystal Completed ? 04/2018 100 mg capsule nitroglycerin 0.4 mg sublingual tablet Completed 8 08/14/2008 1 (one) SL Tab: every 5 minutes x 3 as needed for chest pain omega 3s 300 [id number]-fish oil 1,000 mg capsule,delayed re lease Completed 08/09/2013 10/25/2014 1 Capsule: qd - daily omeprazole 20 mg capsule,delayed release Active ? Not available TAKE ONE CAPSULE BY MOUTH TWICE A DAY One-Per-Day [place]-3 684 mg-1,200 mg capsule,delayed release Completed 07/01/2010 07/01/2010 1 (one) Capsule: daily Percocet 5 mg-325 mg tablet Completed 08/30/201308/08 2 (two) Tablet: every four hours, as needed potassium chloride 20 mEq oral packet Completed 09/13/2008 09/13/2008 1 (one) Packet: daily pramipexole 0.125 mg tablet Completed 01/06/2015 04/0 04/2015 1 (one) Tablet Tablet: daily at bedtime prednisone 10 mg tablet Completed 06/17/2013 07/05/20 13 1 (one) Tablet: As directed prednisone 20 mg tablet Completed 05/12/2014 05/17/20 14 2 (two) Tablet: daily Prevacid 30 mg capsule,delayed release Completed 05/30/2006 1 (one) Capsule DR: Daily Probiotic Completed ? 05/08/2020 1 daily Protonix 40 mg tablet,delayed release Completed 09/16/2014 09/30/2014 1 (one) Tablet DR: daily Proventil HFA 90 mcg/actuation aerosol inhaler Completed 0 11/10/2009 11/10/2009 2 (two) Puff(s): every four-six hours Pyridium 100 mg tablet Active ? Not avail able 1 Tablet: tid - three times a day Pyridium 200 mg tablet Completed 06/03/2015 5 1 (one) Tablet: every eight hours quetiapine 100 mg tablet Active ? Not abdirahman ilable ranitidine 300 mg tablet Active ? Not abdirahman ilable risperidone 2 mg tablet Completed 01/15/2013 01/16/20 13 1 Tablet: at night Robaxin 500 mg tablet Completed 10/13/2010 10/13/2010 1 (one) Tablet: Every 6 hours as needed Spiriva with HandiHaler 18 mcg and inhalation capsules Completed 12/08/2015 12/17/2015 1 (one) breath: daily Symbicort 160 mcg-4.5 Active ? Not availa ble mcg/actuation HFA aerosol inhaler temazepam 15 mg capsule Completed ? 06/12/20 18 thiamine HCl (vitamin B1) 100 mg tablet Completed 08/21/20 15 08/21/2015 1 (one) Tablet: once daily tramadol 50 mg tablet Completed 11/24/2009 11/24/2009 1 (one) Tablet: four times daily, as needed trazodone 150 mg tablet Completed ? 06/12/20 18 triamcinolone acetonide 0.025 Completed ? % lotion Tylenol 325 mg tablet Completed 08/09/2013 02/06/2014 2 (two) Tablet: every six hours, as needed vancomycin 125 mg capsule Active ? Not av ailable Vitamin D2 1,250 mcg (50,000 unit) capsule Completed 07/0107/01/2010 1 (one) Capsule: Once weekly Xopenex HFA 45 mcg/actuation aerosol inhaler Completed 07/30/2008 2 (two) breath: every 4-6 hours as needed Notes: 07/24/2020 patient reports 6mg at night, Nac two 600 mg capsules. Fish oil one daily, Omeprazole one daily 07/24/2020 verbal review with patient Problems Name Status Onset Date Source ? Thyrotoxicosis Active ? History Vitamin D Deficiency Active ? History Hyperlipidemia Active ? History Hypomagnesemia Active ? History Hypokalemia Active ? History Overweight Active ? History Recurrent Major Depression Unknown ? Histo ry Severe Recurrent Major Depression without Active ? History Psychotic Features Recurrent Major Depressive Episodes, in Full Unknown ? History Remission Anxiety Disorder Active ? History Tobacco User Active ? History Posttraumatic Stress Disorder Active ? Hi story Depressive Disorder Unknown ? History Insomnia Active ? History Hypersomnia Unknown ? History Obstructive Sleep Apnea Syndrome Active ? History Visual Disturbance Unknown ? History Sinusitis Unknown ? History Chronic Tracheobronchitis Unknown ? Histor y Chronic Obstructive Lung Disease Active ? History Enterocolitis Unknown ? History Diverticulitis of Large Intestine Active ? History Urinary Tract Infectious Disease Unknown ? History Alopecia Unknown ? History Epidermoid Cyst of Skin Unknown ? 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 History Disorders Abnormal Weight Gain Unknown ? History Tachycardia Unknown ? History Breathing Painful Unknown ? History Flatulence, Eructation and Gas Pain Unknown ? History Abdominal Pain Unknown ? History Suicidal Thoughts Active ? History Adult Health Examination Unknown ? History Procedure by Method Unknown ? History Hemorrhage of Rectum and Anus Unknown ? Hi story Finding of Esophagus Unknown ? History Procedure Unknown ? History Procedures Date Name Performed by ? 06/01/2017 Colonoscopy Information not avai lable Notes: 2 colon polyps, le ft colon diverticulosis, sm internal hemorrhoids. 06/20/2000 med size internal hemorrhoids 06/16/2004 Laparoscopy Information not avai lable Notes: and Ventral Hernia Repair 11/07/1997 Hysterectomy Information not avai lable ? Repair of Ureter Information not avai lable Notes: right ureter narrowing removed . ? Cholecystectomy Information not avai lable 08/14/2018 MAMMO, Screening, Tomosynthesis, [facility] Radiology (Internal) Bilateral [address], [place] [id number] (Work Place) 08/15/2018 CT, Abdomen + Pelvis, W/ Contrast [facility] Radiology (Internal) [address] [place] [address] (Work Place) 08/25/2018 CT, Abdomen + Pelvis, W/ Contrast [facility] Radiology (Internal) [address] [place] [address] (Work Place) Results Lab Results Date Name Specimen Result Interpretation Description Value Range Status Address ? 07/24/2020 Magnesium, QN, S ? mg 1.6 mg/dL 1.6-2.3 F inal [place] Serum or Plasma mg/dL [facility] (Internal) : [address] 07/24/2020 Lipid Panel, S High Chol 230 mg/dL 50-200 Heather l [place] Serum mg/dL [facility] (Internal) : [address] ? ? S High Trig 258 mg/dL 10-150 Final [place] mg/dL [facility] (Internal) : [address] ? ? S High Hdl 66 mg/dL 40-60 Final [place] mg/dL [facility] (Internal) : [address] ? ? S ? Ldl 112 mg/dL 0-130 Final [place] mg/dL [facility] (Internal) : [address] 07/24/2020 CMP, Serum or S ? g/r 92 mg/dL 74-106 Heather l [place] Plasma mg/dL [facility] (Internal) : [address] ? ? S ? Bun 8 mg/dL 7-17 Final [place] mg/dL [facility] (Internal) : [address] ? ? S ? Crea 0.80 mg/dL 0.52-1.04 Final [place] mg/dL [facility] (Internal) : [address] ? ? S ? Ca 9.3 mg/dL 8.4-10.2 Final [place] mg/dL [facility] (Internal) : [address] ? ? S ? Na 138 mmol/L 137-145 Final [place] mmol/L [facility] (Internal) : [address] ? ? S ? K 3.7 mmol/L 3.5-5.1 Final [place] mmol/L [facility] (Internal) : [address] ? ? S ? Cl 100 mmol/L 98-107 Final [place] mmol/L [facility] (Internal) : [address] ? ? S ? Tco2 30.0 22.0-30.0 Final [place] mmol/L mmol/L [facility] (Internal) : [address] ? ? S ? Tp 7.2 g/dL 6.3-8.2 Final [place] g/dL [facility] (Internal) : [address] ? ? S ? Alb 4.5 g/dL 3.5-5.0 Final [place] g/dL [facility] (Internal) : [address] ? ? S ? Tbil 0.4 mg/dL 0.2-1.3 Final [place] mg/dL [facility] (Internal) : [address] ? ? S ? Alp 63 U/L 38-126 Final [place] U/L [facility] (Internal) : [address] ? ? S ? Alt 14 U/L 9-52 U/L Final [place] (Sgpt) [facility] (Internal) : [address] ? ? S ? Ast 29 U/L 14-36 U/L Final [place] (Sgot) [facility] (Internal) : [address] t 07/24/2020 TSH, Serum or S ? Tsh 1.10 0.47-4.68 Fin al [place] Plasma u[IU]/mL u[IU]/mL [facility] (Internal) : [address] t 02/17/2020 CBC W/ Auto BLD ? Wbc 9.5 5.0-10.0 Final [place] Diff 10*3/uL 10*3/uL [facility] (Internal) : [address] ? ? BLD Low Rbc 4.06 4.10-5.30 Final [place] 10*6/uL 10*6/uL [facility] (Internal) : [address] ? ? BLD ? Hgb 12.9 g/dL 12.0-16.0 Final Nort h g/dL [facility] (Internal) : [address] ? ? BLD ? Hct 38.5 % 37.0-47.0 Final [facility] (Internal) : [address] ? ? BLD ? Mcv 94.8 fL 80.0-96.0 Final [facility] (Internal) : [address] ? ? BLD ? Mch 31.8 pg 26.0-32.0 Final [facility] (Internal) : [address] ? ? BLD ? Mchc 33.5 g/dL 31.0-35.0 Final Nort h g/dL [facility] (Internal) : [address] ? ? BLD ? Rdw 13.1 % 11.5-14.5 Final [facility] (Internal) : [address] ? ? BLD ? Plt 212 130-450 Final [place] 10*3/uL 10*3/uL [facility] (Internal) : [address] ? ? BLD ? Anc 6.70 ? Final [place] 10*3/uL [facility] (Internal) : [address] ? ? BLD High Nlr 4.29 0.00-3.20 Final [facility] (Internal) : [address] ? ? BLD ? Neutro 70.5 % 40.0-75.0 Final [facility] (Internal) : [address] ? ? BLD Low Lymph 16.4 % 20.0-50.0 Final [facility] (Internal) : [address] ? ? BLD High Dunn 11.1 % 2.0-10.0 Final [facility] : [address] ? ? BLD ? Eos 1.2 % 1.0-6.0 % Final [facility] (Internal) : [address] ? ? BLD ? Baso 0.5 % 0.0-1.0 % Final [facility] (Internal) : [address] ? ? BLD ? Ig 0.3 % 0.0-0.9 % Final [facility] (Internal) : [address] 02/17/2020 CRP, High S ? Rcrp 0.25 mg/dL 0.10-0.30 Fin al [place] Sensitivity, mg/dL Coun try Serum or Plasma [facility] Lab (Internal) : [address] 02/17/2020 CMP, Serum or S ? g/r 99 mg/dL 74-106 Heather [place] Plasma mg/dL [facility] (Internal) : [address] ? ? S ? Bun 15 mg/dL 7-17 Final [place] mg/dL [facility] (Internal) : [address] ? ? S ? Crea 0.70 mg/dL 0.52-1.04 Final [place] mg/dL [facility] (Internal) : [address] ? ? S ? Ca 9.6 mg/dL 8.4-10.2 Final [place] mg/dL [facility] (Internal) : [address] ? ? S ? Na 137 mmol/L 137-145 Final [place] mmol/L [facility] (Internal) : [address] ? ? S Low K 3.4 mmol/L 3.5-5.1 Final [place] mmol/L [facility] (Internal) : [address] ? ? S ? Cl 98 mmol/L 98-107 Final [place] mmol/L [facility] (Internal) : [address] ? ? S ? Tco2 24.0 22.0-30.0 Final [place] mmol/L mmol/L [facility] (Internal) : [address] ? ? S ? Tp 7.8 g/dL 6.3-8.2 Final [place] g/dL [facility] (Internal) : [address] ? ? S ? Alb 4.7 g/dL 3.5-5.0 Final [place] g/dL [facility] (Internal) : [address] ? ? S ? Tbil 0.4 mg/dL 0.2-1.3 Final [place] mg/dL [facility] (Internal) : [address] ? ? S ? Alp 72 U/L 38-126 Final [place] U/L [facility] (Internal) : [address] ? ? S ? Alt 17 U/L 9-52 U/L Final [place] (Sgpt) [facility] (Internal) : [address] ? ? S ? Ast 31 U/L 14-36 U/L Final [place] (Sgot) [facility] (Internal) : [address] 08/22/2019 Urinalysis, UR - UA-col pale pale Final [place] Dipstick, or yellow yellow [facility] (Internal) : [address] ? ? UR - UA-errol clear clear Final [facility] ([facility] : [address] ? ? UR - UA-spe <=1.005 1.003-1.0 Final [facility] Grav 35 [facility] (Internal) : [address] ? ? UR - UA-pH 6.0 [pH] 4.6-8.0 Final [place] [pH] [facility] (Internal) : [address] ? ? UR - UA-pelon negative negative Final [place] k Est [facility] (Internal) : [address] ? ? UR - UA-nit negative negative Final [place] rite [facility] (Internal) : [address] ? ? UR - UA-pro negative negative Final [facility] (Internal) : [address] ? ? UR - UA-glu negative negative Final [facility] (Internal) : [address] ? ? UR - UA-ket negative negative Final [place] one [facility] (Internal) : [address] ? ? UR - UA-uro normal normal Final [place] joanie [facility] (Internal) : [address] ? ? UR - UA-joanie negative negative Final [place] i [facility] (Internal) : [address] ? ? UR - UA-blo negative negative Final [place] od [facility] (Internal) : [address] 08/16/2019 CMP, Serum or S - g/r 89 mg/dL 74-106 [place] [facility] [place] Plasma mg/dL [facility] ([facility]) : [address] ? ? S High Bun 20 mg/dL 7-17 Final [place] mg/dL [facility] (Internal) : [address] ? ? S - Crea 0.80 mg/dL 0.52-1.04 Final [place] th mg/dL [facility] (Internal) : [address] ? ? S - Ca 9.2 mg/dL 8.4-10.2 Final [place] mg/dL [facility] ([facility]) : [address] ? ? S - Na 140 mmol/L 137-145 Final [place] mmol/L [facility] (Internal) : [address] ? ? S - K 3.9 mmol/L 3.5-5.1 Final [place] mmol/L [facility] (Internal) : [address] ? ? S - Cl 102 mmol/L 98-107 Final [place] mmol/L [facility] (Internal) : [address] ? ? S - Tco2 28.0 22.0-30.0 Final [place] mmol/L mmol/L [facility] (Internal) : [address] ? ? S - Tp 7.4 g/dL 6.3-8.2 Final [place] g/dL [facility] (Internal) : [address] ? ? S - Alb 4.1 g/dL 3.5-5.0 Final [place] g/dL [facility] ([facility] : [address] ? ? S - Tbil 0.4 mg/dL 0.2-1.3 Final [place] mg/dL [facility] (Internal) : [address] ? ? S - Alp 70 U/L 38-126 Final [place] U/L [facility] (Internal) : [address] ? ? S - Alt 22 U/L 9-52 U/L Final [place] (Sgpt) [facility] (Internal) : [address] ? ? S - Ast 26 U/L 14-36 U/L Final [place] (Sgot) [facility] (Internal) : [address] 08/16/2019 Magnesium, QN, S - mg 1.8 mg/dL 1.6-2.3 F inal [place] Serum or Plasma mg/dL [facility] (Internal) : [address] 07/13/2019 CBC W/ Auto BLD - Wbc 6.4 5.0-10.0 Final [place] Diff 10*3/uL 10*3/uL [facility] (Internal) : [address] ? ? BLD Low Rbc 3.93 4.10-5.30 Final [place] 10*6/uL 10*6/uL [facility] (Internal) : [address] ? ? BLD - Hgb 13.1 g/dL 12.0-16.0 Final Nort h g/dL [facility] (Internal) : [address] ? ? BLD - Hct 38.2 % 37.0-47.0 Final [place] % [facility] (Internal) : [address] ? ? BLD High Mcv 97.2 fL 80.0-96.0 Final [place] fL [facility] (Internal) : [address] ? ? BLD High Mch 33.3 pg 26.0-32.0 Final [place] pg [facility] (Internal) : [address] ? ? BLD - Mchc 34.3 g/dL 31.0-35.0 Final Nort [facility] g/dL [facility] (Internal[facility] : [address] ? ? BLD - Rdw 14.3 % 11.5-14.5 Final [facility] L [facility] (Internal) : [address] ? ? BLD - Plt 211 130-450 Final [place] 10*3/uL 10*3/uL [facility] (Internal) : [address] ? ? BLD - Anc 4.34 ? Final [place] 10*3/uL [facility] (Internal) : [address] ? ? BLD - Neutro 68.3 % 40.0-75.0 Final [facility] (Internal) : [address] ? ? BLD Low Lymph 19.0 % 20.0-50.0 Final [facility] (Internal) : [address] ? ? BLD High Dunn 10.5 % 2.0-10.0 Final [facility] (Internal) : [address] ? ? BLD - Eos 1.3 % 1.0-6.0 % Final [facility] (Internal) : [address] ? ? BLD - Baso 0.6 % 0.0-1.0 % Final [facility] (Internal) : [address] ? ? BLD - Ig 0.3 % 0.0-0.9 % Final [facility] (Internal) : [address] 05/14/2019 Urinalysis, UR - UA-col yellow pale Final [place] Dipstick, or yellow [facility] (Internal) : [address] ? ? UR - UA-errol clear clear Final [place] ear [facility] (Internal) : [address] ? ? UR - UA-glu negative negative Final [facility] (Internal) : [address] ? ? UR ABNORMA UA-joanie positive negative Final Nort h L i [facility] (Internal) : [address] ? ? UR ABNORMA UA-ket trace negative Final [facility] (Internal) : [address] t ? ? UR - UA-spe 1.010 1.003-1.0 Final [place] c Grav 35 [facility] (Internal) : [address] ? ? UR ABNORMA UA-blo moderate negative Final Nort h L od [facility] Hospital ab (Internal) : [address] t ? ? UR - UA-pH 5.0 [pH] 4.6-8.0 Final [place] [pH] [facility] ab (Internal) : [address] t ? ? UR ABNORMA UA-pro 1+ negative Final [facility] ab (Internal) : [address] t ? ? UR - UA-uro normal normal Final [place] joanie [facility] ab (Internal) : [address] t ? ? UR - UA-nit negative negative Final [facility] ab (Internal) : [address] t ? ? UR ABNORMA UA-pelon mod negative Final [place] L k Est [facility] ab (Internal) : [address] 05/14/2019 Urinalysis, UR ABNORMA UA-WBC >100 [hpf] 0-3 [hpf] Final [place] Microscopic L Count [facility] ab (Internal) : [address] t ? ? UR ABNORMA UA-RBC 3-5 [hpf] 0-2 [hpf] Final No rth L [facility] ab (Internal) : [address] t ? ? UR ABNORMA UA-storm many [hpf] none seen Final N orth L teria [hpf] [facility] ab (Internal) : [address] t ? ? UR - UA-epi rare [hpf] none seen Final No rth thelial [hpf] [facility] ab (Internal) : [address] t ? ? UR - UA-muc none seen none seen Final Nor th us [hpf] [hpf] [facility] ab (Internal) : [address] 05/14/2019 Culture ([place] UR - Final microbiolo ? Final [place] Count), Urine gy results [facility] ab (Internal) : [address] 08/14/2018 CBC W/ Auto BLD - Wbc 7.9 5.0-10.0 Final [place] Diff 10*3/uL 10*3/uL [facility] Hospital L ab (Internal) : [address] ? ? BLD Low Rbc 3.86 4.10-5.30 Final [place] 10*6/uL 10*6/uL [facility] Hospital L ab (Internal) : [address] sebastien ? ? BLD Low Hgb 11.8 g/dL 12.0-16.0 Final Nort h g/dL [facility] Hospital L ab (Internal) : [address] sebastien ? ? BLD Low Hct 36.6 % 37.0-47.0 Final [facility] Hospital L ab (Internal) : [address] sebastien ? ? BLD - Mcv 94.8 fL 80.0-96.0 Final [facility] Hospital L ab (Internal) : [address] ? ? BLD - Mch 30.6 pg 26.0-32.0 Final [facility] Hospital L ab (Internal) : [address] ? ? BLD - Mchc 32.2 g/dL 31.0-35.0 Final Nort h g/dL [facility] Hospital L ab (Internal) : [address] ? ? BLD - Rdw 13.6 % 11.5-14.5 Final [facility] Hospital L ab (Internal) : [address] ? ? BLD - Plt 253 130-450 Final [place] 10*3/uL 10*3/uL [facility] Hospital L ab (Internal) : [address], Angela crowe ? ? BLD - Anc 5.26 ? Final [place] 10*3/uL [facility] Hospital L ab (Internal) : [address] sebastien ? ? BLD - Neutro 66.5 % 40.0-75.0 Final [facility] Hospital L ab (Internal) : [address] ? ? BLD Low Lymph 19.8 % 20.0-50.0 Final [facility] Hospital L ab (Internal) : [address] t ? ? BLD High Dunn 10.6 % 2.0-10.0 [facility] : [address] t ? ? BLD - Eos 1.9 % 1.0-6.0 % Final [facility] Hospital L ab (Internal) : [address] t ? ? BLD - Baso 0.8 % 0.0-1.0 % Final [facility] Hospital L ab (Internal) : [address] ? ? BLD - Ig 0.4 % 0.0-0.9 % Final [facility] Hospital L ab (Internal) : [address] 08/14/2018 BMP, Serum or S - g/r 98 mg/dL 74-106 Heather l [place] Plasma mg/dL [facility] (Internal) : [address] t ? ? S - Bun 9 mg/dL 7-17 Final [place] mg/dL [facility] Hospital L ab (Internal) : [address] ? ? S - Crea 0.80 mg/dL 0.52-1.04 Final [place] mg/dL [facility] Hospital L ab (Internal) : [address] ? ? S - Ca 9.3 mg/dL 8.4-10.2 Final [place] mg/dL [facility] Hospital L ab (Internal) : [address] t ? ? S - Na 137 mmol/L 137-145 Final [place] mmol/L [facility] Hospital L ab (Internal) : [address] ? ? S - K 3.6 mmol/L 3.5-5.1 Final [place] mmol/L [facility] Hospital L ab (Internal) : [address] t ? ? S - Cl 101 mmol/L 98-107 Final [place] mmol/L [facility] Hospital L ab (Internal) : [address] ? ? S - Tco2 29.0 22.0-30.0 Final [place] mmol/L mmol/L [facility] Hospital L ab (Internal) : [address] 02/13/2018 Venipuncture BLD ? Venpn* ? ? Final [facility] Hospital L ab (Internal) : [address] 02/13/2018 CBC W/ Auto BLD ? Wbc 6.6 5.0-10.0 Final [place] Diff 10*3/uL 10*3/uL [facility] Hospital L ab (Internal) : [address] ? ? BLD ? Rbc 4.28 4.10-5.30 Final [place] 10*6/uL 10*6/uL [facility] (Internal) : [address] ? ? BLD ? Hgb 12.9 g/dL 12.0-16.0 Final Nort h g/dL [facility] Hospital L ab (Internal) : [address] ? ? BLD ? Hct 39.7 % 37.0-47.0 Final [facility] Hospital L ab (Internal) : [address] ? ? BLD ? Mcv 92.8 fL 80.0-96.0 Final [facility] Hospital L ab (Internal) : [address] ? ? BLD ? Mch 30.1 pg 26.0-32.0 Final [facility] Hospital L ab (Internal) : [address] ? ? BLD ? Mchc 32.5 g/dL 31.0-35.0 Final Nort h g/dL [facility] Hospital L ab (Internal) : [address] ? ? BLD ? Rdw 13.2 % 11.5-14.5 Final [facility] Hospital L ab (Internal) : [address] ? ? BLD ? Plt 236 130-450 Final [place] 10*3/uL 10*3/uL [facility] Hospital L ab (Internal) : [address] ? ? BLD ? Anc 3.59 ? Final [place] 10*3/uL [facility] Hospital L ab (Internal) : [address] ? ? BLD ? Neutro 54.5 % 40.0-75.0 Final [facility] Hospital L ab (Internal) : [address] ? ? BLD ? Lymph 29.7 % 20.0-50.0 Final [facility] Hospital L ab (Internal) : [address] t ? ? BLD High Dunn 11.4 % 2.0-10.0 Final [facility] Hospital L ab (Internal) : [address] ? ? BLD ? Eos 3.3 % 1.0-6.0 % Final [facility] Hospital L ab (Internal) : [address] t ? ? BLD ? Baso 0.9 % 0.0-1.0 % Final [facility] Hospital L ab (Internal) : [address] t ? ? BLD ? Ig 0.2 % 0.0-0.9 % Final [facility] Hospital L ab (Internal) : [address] 02/13/2018 CMP, Serum or S ? g/r 97 mg/dL 74-106 Heather l [place] Plasma mg/dL [facility] (Internal) : [address] t ? ? S ? Bun 11 mg/dL 7-17 Final [place] mg/dL [facility] Hospital L ab (Internal) : [address] t ? ? S ? Crea 1.00 mg/dL 0.52-1.04 Final [place] mg/dL [facility] (Internal) : [address] t ? ? S ? Ca 10.1 mg/dL 8.4-10.2 Final Nort [facility] mg/dL [facility] ab (Internal) : [address] t ? ? S ? Na 139 mmol/L 137-145 Final [place] mmol/L [facility] Hospital L ab (Internal) : [address] t ? ? S ? K 4.0 mmol/L 3.5-5.1 Final [place] mmol/L [facility] (Internal) : [address] t ? ? S ? Cl 100 mmol/L 98-107 Final [place] mmol/L [facility] L ab (Internal) : [address] t ? ? S ? Tco2 28.0 22.0-30.0 Final [place] mmol/L mmol/L [facility] L ab (Internal) : [address] t ? ? S ? Tp 7.4 g/dL 6.3-8.2 Final [place] g/dL [facility] (Internal) : [address] t ? ? S ? Alb 4.4 g/dL 3.5-5.0 Final [place] g/dL [facility] (Internal) : [address] t ? ? S ? Tbil 0.5 mg/dL 0.2-1.3 Final [place] mg/dL [facility] L ab (Internal) : [address] t ? ? S ? Alp 62 U/L 38-126 Final [place] U/L [facility] L ab (Internal) : [address] t ? ? S ? Alt 26 U/L 9-52 U/L Final [place] (Sgpt) [facility] L ab (Internal) : [address] t ? ? S ? Ast 27 U/L 14-36 U/L Final [place] (Sgot) [facility] L ab (Internal) : [address] 02/13/2018 Lipid Panel, S High Chol 258 mg/dL 50-200 Heather l [place] Serum mg/dL [facility] L ab (Internal) : [address] t ? ? S High Trig 221 mg/dL 10-150 Final [place] mg/dL [facility] L ab (Internal) : [address] t ? ? S ? Hdl 56 mg/dL 40-60 Final [place] mg/dL [facility] L ab (Internal) : [address] t ? ? S High Ldl 158 mg/dL 0-130 Final [place] mg/dL [facility] L ab (Internal) : [address] t 12/06/2017 Venipuncture BLD ? Venpn* ? ? Final [facility] L ab (Internal) : [address] 12/06/2017 TSH, Serum or S ? Tsh 4.21 0.47-4.68 Fin al [place] Plasma u[IU]/mL u[IU]/mL [facility] ab (Internal) : [address] t 12/06/2017 CMP, Serum or S ? g/r 105 mg/dL 74-106 Fin al [place] Plasma mg/dL [facility] L ab (Internal) : [address] t ? ? S ? Bun 7 mg/dL 7-17 Final [place] mg/dL [facility] L ab (Internal) : [address] t ? ? S ? Crea 1.00 mg/dL 0.52-1.04 Final [place] mg/dL [facility] L ab (Internal) : [address] t ? ? S ? Ca 9.0 mg/dL 8.4-10.2 Final [place] mg/dL [facility] (Internal) : [address] t ? ? S ? Na 140 mmol/L 137-145 Final [place] mmol/L [facility] (Internal) : [address] t ? ? S ? K 3.7 mmol/L 3.5-5.1 Final [place] mmol/L [facility] ab (Internal) : [address] t ? ? S ? Cl 101 mmol/L 98-107 Final [place] mmol/L [facility] ab (Internal) : [address] t ? ? S ? Tco2 24.0 22.0-30.0 Final [place] mmol/L mmol/L [facility] L ab (Internal) : [address] t ? ? S ? Tp 7.7 g/dL 6.3-8.2 Final [place] g/dL [facility] (Internal) : [address] t ? ? S ? Alb 4.6 g/dL 3.5-5.0 Final [place] g/dL [facility] ab (Internal) : [address] t ? ? S ? Tbil 0.3 mg/dL 0.2-1.3 Final [place] mg/dL [facility] ab (Internal) : [address] t ? ? S ? Alp 73 U/L 38-126 Final [place] U/L [facility] (Internal) : [address] t ? ? S ? Alt 30 U/L 9-52 U/L Final [place] (Sgpt) [facility] Hospital L ab (Internal) : [address] t ? ? S ? Ast 27 U/L 14-36 U/L Final [place] (Sgot) [facility] Hospital L ab (Internal) : [address] t 12/06/2017 Acetaminophen, S ? Actmn <10.0 10.0-30.0 Fi nal [place] Serum ug/mL ug/mL [facility] L ab (Internal) : [address] t 12/06/2017 Salicylate, S ? Dariusz <1.0 mg/dL 0.0-20.0 Fi nal [place] Quantitative, mg/dL [facility] : [address] 12/06/2017 CBC W/ Auto BLD ? Wbc 6.0 5.0-10.0 Final [place] Diff 10*3/uL 10*3/uL [facility] Hospital L ab (Internal) : [address] ? ? BLD ? Rbc 4.13 4.10-5.30 Final [place] 10*6/uL 10*6/uL [facility] Hospital L ab (Internal) : [address] ? ? BLD ? Hgb 12.6 g/dL 12.0-16.0 Final Nort [place] g/dL [facility] Hospital L ab (Internal) : [address] ? ? BLD ? Hct 37.4 % 37.0-47.0 Final [facility] L ab (Internal) : [address] ? ? BLD ? Mcv 90.6 fL 80.0-96.0 Final [facility] L ab (Internal) : [address] t ? ? BLD ? Mch 30.5 pg 26.0-32.0 Final [place] pg [facility] L ab (Internal) : [address] ? ? BLD ? Mchc 33.7 g/dL 31.0-35.0 Final Nort h g/dL [facility] Hospital L ab (Internal) : [address] t ? ? BLD ? Rdw 13.2 % 11.5-14.5 Final [facility] L ab (Internal) : [address] ? ? BLD ? Plt 217 130-450 Final [place] 10*3/uL 10*3/uL [facility] Hospital L ab (Internal) : [address] t ? ? BLD ? Anc 2.55 ? Final [place] 10*3/uL [facility] L ab (Internal) : [address] t ? ? BLD ? Neutro 42.4 % 40.0-75.0 Final [facility] L ab (Internal) : [address] t ? ? BLD ? Lymph 42.1 % 20.0-50.0 Final [facility] L ab (Internal) : [address] t ? ? BLD ? Dunn 9.8 % 2.0-10.0 Final [facility] Hospital L ab (Internal) : [address] t ? ? BLD ? Eos 4.2 % 1.0-6.0 % Final [facility] L ab (Internal) : [address] t ? ? BLD High Baso 1.2 % 0.0-1.0 % Final [facility] L ab (Internal) : [address] t ? ? BLD ? Ig 0.3 % 0.0-0.9 % Final [facility] L ab (Internal) : [address] t 12/06/2017 Ethanol, Blood S High Alc 186.0 0.0-9.9 Heather l [place] mg/dL mg/dL [facility] L ab (Internal) : [address] t 08/10/2017 C Diff Toxin STL ? C. negative negative Fin al [place] Genes, Qual, Diff Coun try PCR, Stool ([facility]) Hospit al Lab (Internal) : [address] t 07/15/2017 Venipuncture BLD ? Venpn* ? ? Final [facility] L ab (Internal) : [address] t 07/15/2017 BMP, Serum or PLASMA ? g/r 94 mg/dL 74-106 Heather l [place] Plasma mg/dL [facility] L ab (Internal) : [address] ? ? PLASMA Low Bun 5 mg/dL 7-17 Final [place] mg/dL [facility] L ab (Internal) : [address] ? ? PLASMA ? Crea 0.80 mg/dL 0.52-1.04 Final [place] mg/dL [facility] L ab (Internal) : [address] ? ? PLASMA ? Ca 9.2 mg/dL 8.4-10.2 Final [place] mg/dL [facility] L ab (Internal) : [address] ? ? PLASMA ? Na 139 mmol/L 137-145 Final [place] mmol/L [facility] L ab (Internal) : [address], [place] ? ? PLASMA ? K 4.2 mmol/L 3.5-5.1 Final [place] mmol/L [facility] Hospital L ab (Internal) : [address] t ? ? PLASMA ? Cl 101 mmol/L 98-107 Final [place] mmol/L [facility] Hospital L ab (Internal) : [address] ? ? PLASMA ? Tco2 25.0 22.0-30.0 Final [place] mmol/L mmol/L [facility] Hospital L ab (Internal) : [address] 07/15/2017 Cbc BLD ? Wbc 5.4 5.0-10.0 Final Nort h 10*3/uL 10*3/uL [facility] (Internal) : [address] ? ? BLD Low Rbc 3.80 4.10-5.30 Final [place] 10*6/uL 10*6/uL [facility] ab (Internal) : [address] ? ? BLD Low Hgb 11.8 g/dL 12.0-16.0 Final Nort [place] g/dL [facility] Hospital L ab (Internal) : [address] ? ? BLD Low Hct 34.9 % 37.0-47.0 Final [facility] Hospital L ab (Internal) : [address] ? ? BLD ? Mcv 91.8 fL 80.0-96.0 Final [facility] Hospital L ab (Internal) : [address] ? ? BLD ? Mch 31.1 pg 26.0-32.0 Final [facility] Hospital L ab (Internal) : [address] t ? ? BLD ? Mchc 33.8 g/dL 31.0-35.0 Final Nort h g/dL [facility] Hospital L ab (Internal) : [address] ? ? BLD ? Rdw 13.1 % 11.5-14.5 Final [facility] Hospital L ab (Internal) : [address] ? ? BLD ? Plt 249 130-450 Final [place] 10*3/uL 10*3/uL [facility] ab (Internal) : [address] ? ? BLD ? Anc 2.84 ? Final [place] 10*3/uL [facility] L ab (Internal) : [address] 07/14/2017 Venipuncture BLD ? Venpn* ? ? Final [facility] L ab (Internal) : [address] 07/14/2017 TSH, Serum or PLASMA ? Tsh 2.86 0.47-4.68 Fin al [place] Plasma u[IU]/mL u[IU]/mL [facility] L ab (Internal) : [address] 07/14/2017 Magnesium, QN, PLASMA ? mg 1.8 mg/dL 1.6-2.3 F inal [place] Serum or Plasma mg/dL C [facility] L ab (Internal) : [address] 07/14/2017 CMP, Serum or PLASMA ? g/r 84 mg/dL 74-106 Heather l [place] Plasma mg/dL [facility] L ab (Internal) : [address] ? ? PLASMA Low Bun 6 mg/dL 7-17 Final [place] mg/dL [facility] L ab (Internal) : [address] ? ? PLASMA ? Crea 0.80 mg/dL 0.52-1.04 Final [place] mg/dL [facility] L ab (Internal) : [address] ? ? PLASMA ? Ca 8.6 mg/dL 8.4-10.2 Final [place] mg/dL [facility] L ab (Internal) : [address] ? ? PLASMA ? Na 140 mmol/L 137-145 Final [place] mmol/L [facility] L ab (Internal) : [address] ? ? PLASMA ? K 3.9 mmol/L 3.5-5.1 Final [place] mmol/L [facility] L ab (Internal) : [address] ? ? PLASMA ? Cl 106 mmol/L 98-107 Final [place] mmol/L [facility] L ab (Internal) : [address] ? ? PLASMA ? Tco2 23.0 22.0-30.0 Final [place] mmol/L mmol/L [facility] L ab (Internal) : [address] ? ? PLASMA ? Tp 6.4 g/dL 6.3-8.2 Final [place] g/dL [facility] (Internal) : [address] t ? ? PLASMA ? Alb 3.8 g/dL 3.5-5.0 Final [place] g/dL [facility] Hospital L ab (Internal) : [address] t ? ? PLASMA ? Tbil 0.7 mg/dL 0.2-1.3 Final [place] mg/dL [facility] Hospital L ab (Internal) : [address] t ? ? PLASMA ? Alp 58 U/L 38-126 Final [place] U/L [facility] Hospital L ab (Internal) : [address] ? ? PLASMA ? Alt 29 U/L 9-52 U/L Final [place] (Sgpt) [facility] Hospital L ab (Internal) : [address] t ? ? PLASMA ? Ast 17 U/L 14-36 U/L Final [place] (Sgot) [facility] L ab (Internal) : [address] t 07/14/2017 Cbc BLD Low Wbc 4.4 5.0-10.0 Final Nort h 10*3/uL 10*3/uL [facility] Hospital L ab (Internal) : [address] t ? ? BLD Low Rbc 3.57 4.10-5.30 Final [place] 10*6/uL 10*6/uL [facility] Hospital L ab (Internal) : [address] t ? ? BLD Low Hgb 10.9 g/dL 12.0-16.0 Final Nort [place] g/dL [facility] Hospital L ab (Internal) : [address] t ? ? BLD Low Hct 32.2 % 37.0-47.0 Final [place] % [facility] L ab (Internal) : [address] t ? ? BLD ? Mcv 90.2 fL 80.0-96.0 Final [place] fL [facility] Hospital L ab (Internal) : [address] t ? ? BLD ? Mch 30.5 pg 26.0-32.0 Final [place] pg [facility] Hospital L ab (Internal) : [address] t ? ? BLD ? Mchc 33.9 g/dL 31.0-35.0 Final Nort h g/dL [facility] Hospital L ab (Internal) : [address] t ? ? BLD ? Rdw 12.8 % 11.5-14.5 Final [facility] L ab (Internal) : [address] ? ? BLD ? Plt 217 130-450 Final [place] 10*3/uL 10*3/uL [facility] L ab (Internal) : [address] ? ? BLD ? Anc 1.90 ? Final [place] 10*3/uL [facility] L ab (Internal) : [address] 07/14/2017 Amylase, Serum PLASMA ? Sallie 96 U/L 30-110 Final [place] or Plasma U/L [facility] L ab (Internal) : [address] 07/13/2017 Lactic Acid, S Low La <0.6 0.7-2.1 Final [place] Blood mmol/L mmol/L [facility] L ab (Internal) : [address] 07/13/2017 Neutrophil BLD ? Anc-ma 3.26 ? Final N orth Count, Absolute nual 10*3/uL [facility] (Anc), Blood Hosp ital Lab (Internal) : [address] 07/13/2017 Differential, BLD ? Polys 50 % 40-75 % Final [facility] Blood [facility] L ab (Internal) : [address] ? ? BLD ? Bands 1 % 0-5 % Final [facility] L ab (Internal) : [address] ? ? BLD ? Lymphs 40 % 20-50 % Final [facility] L ab (Internal) : [address] ? ? BLD ? Dunn 9 % 2-10 % Final [facility] L ab (Internal) : [address] ? ? BLD ? Eos 0 % 0-6 % Final [facility] L ab (Internal) : [address] ? ? BLD ? Baso 0 % 0-1 % Final [facility] L ab (Internal) : [address] ? ? BLD ? Atyp 0 % ? Final [facility] L ab (Internal) : [address] ? ? BLD ? Plts, adequate adequate [facility] (Internal) : [address] ? ? BLD ? RBC normal normal Final [facility] (Internal) : [address] 07/13/2017 Lipase, Serum S ? Lip 90 U/L 23-300 Final [place] or Plasma U/L [facility] ab (Internal) : [address] 07/13/2017 CMP, Serum or S ? g/r 100 mg/dL 74-106 Fin al [place] Plasma mg/dL [facility] L ab (Internal) : [address] t ? ? S ? Bun 8 mg/dL 7-17 Final [place] mg/dL [facility] ab (Internal) : [address] t ? ? S ? Crea 0.80 mg/dL 0.52-1.04 Final [facility] mg/dL [facility] ab (Internal) : [address] t ? ? S ? Ca 9.7 mg/dL 8.4-10.2 Final [place] mg/dL [facility] ab (Internal) : [address] t ? ? S ? Na 137 mmol/L 137-145 Final [place] mmol/L [facility] ab (Internal) : [address] ? ? S ? K 3.6 mmol/L 3.5-5.1 Final [place] mmol/L [facility] ab (Internal) : [address] t ? ? S Low Cl 96 mmol/L 98-107 Final [place] mmol/L [facility] ab (Internal) : [address] ? ? S ? Tco2 27.0 22.0-30.0 Final [place] mmol/L mmol/L [facility] L ab (Internal) : [address] ? ? S ? Tp 8.1 g/dL 6.3-8.2 Final [place] g/dL [facility] ab (Internal) : [address] ? ? S ? Alb 5.0 g/dL 3.5-5.0 Final [place] g/dL [facility] ab (Internal) : [address] ? ? S ? Tbil 0.6 mg/dL 0.2-1.3 Final [place] mg/dL [facility] ab (Internal) : [address] ? ? S ? Alp 87 U/L 38-126 Final [place] U/L [facility] Hospital L ab (Internal) : [address] ? ? S ? Alt 27 U/L 9-52 U/L Final [place] (Sgpt) [facility] Hospital L ab (Internal) : [address] t ? ? S ? Ast 24 U/L 14-36 U/L Final [place] (Sgot) [facility] L ab (Internal) : [address] 07/13/2017 CBC W/ Auto BLD ? Wbc 6.4 5.0-10.0 Final [place] Diff 10*3/uL 10*3/uL [facility] ab (Internal) : [address] t ? ? BLD Low Rbc 4.07 4.10-5.30 Final [place] 10*6/uL 10*6/uL [facility] ab (Internal) : [address] t ? ? BLD ? Hgb 12.6 g/dL 12.0-16.0 Final Nort h g/dL [facility] Hospital L ab (Internal) : [address] ? ? BLD Low Hct 36.5 % 37.0-47.0 Final [facility] Hospital L ab (Internal) : [address] ? ? BLD ? Mcv 89.7 fL 80.0-96.0 Final [facility] Hospital L ab (Internal) : [address] ? ? BLD ? Mch 31.0 pg 26.0-32.0 Final [place] pg [facility] Hospital L ab (Internal) : [address] t ? ? BLD ? Mchc 34.5 g/dL 31.0-35.0 Final Nort h g/dL [facility] Hospital L ab (Internal) : [address] ? ? BLD ? Rdw 12.8 % 11.5-14.5 Final [facility] L ab (Internal) : [address] ? ? BLD ? Plt 262 130-450 Final [place] 10*3/uL 10*3/uL [facility] Hospital L ab (Internal) : [address] 07/09/2017 Wbc, Stool STL ? Final microbiolo ? Final [place] gy results [facility] L ab (Internal) : [address] 07/09/2017 [facility] ? [id number] see below ? Final No rth Refrigerate 07/14/2017 C ountry 03:37 pm Hospital Lab (Internal) : [address] [facility] 07/09/2017 C Diff Toxin STL ABNORMA C. positive negative Fi nal [place] Genes, Qual, L Diff Coun try PCR, Stool ([facility]) Hospit al Lab (Internal) : [address] [facility] 07/09/2017 Giardia Lamblia STL ? Giardi negative negative Final [place] Ag, EIA, Stool a Co [facility] L ab (Internal) : [address] [facility] 07/08/2017 Venipuncture BLD ? Venpn* ? ? Final [facility] L ab (Internal) : [address] [facility] 07/08/2017 Enteric STL ? [place] see ? Final Nort h Bacteria, marlen comments Count ry Organism PCR Hospital Lab Specific (Interna l): Culture, Stool [address] t ? ? STL ? [place] see ? Final [place] la PCR comments [facility] L ab (Internal) : [address] t ? ? STL ? Campyl see ? Final [place] obacter comments [facility] L ab (Internal) : [address] t ? ? STL ? Shiga see ? Final [place] Toxin comments [facility] L ab (Internal) : [address] 07/08/2017 Lipase, Serum S ? Lip 90 U/L 23-300 [facility] or Plasma U/L [facility] L ab (Internal) : [address] 07/08/2017 Amylase, Serum S High Sallie 135 U/L 30-110 Heather [facility] or Plasma U/L [facility] L ab (Internal) : [address] 07/08/2017 CMP, Serum or S ? g/r 102 mg/dL 74-106 Fin [facility] Plasma mg/dL [facility] L ab (Internal) : [address] t ? ? S ? Bun 10 mg/dL 7-17 Final [place] mg/dL [facility] ([facility]) : [address] t ? ? S ? Crea 0.80 mg/dL 0.52-1.04 Final [place] mg/dL [facility] (Internal) : [address] t ? ? S ? Ca 9.2 mg/dL 8.4-10.2 Final [place] mg/dL [facility] (Internal) : [address] t ? ? S ? Na 137 mmol/L 137-145 Final [place] mmol/L [facility] (Internal) : [address] t ? ? S ? K 3.8 mmol/L 3.5-5.1 Final [place] mmol/L [facility] (Internal) : [address] t ? ? S ? Cl 99 mmol/L 98-107 Final [place] mmol/L [facility] (Internal) : [address] t ? ? S ? Tco2 28.0 22.0-30.0 Final [place] mmol/L mmol/L [facility] (Internal) : [address] t ? ? S ? Tp 7.2 g/dL 6.3-8.2 Final [place] g/dL [facility] (Internal) : [address] t ? ? S ? Alb 4.4 g/dL 3.5-5.0 Final [place] g/dL [facility] (Internal) : [address] t ? ? S ? Tbil 0.4 mg/dL 0.2-1.3 Final [place] mg/dL [facility] (Internal) : [address] t ? ? S ? Alp 79 U/L 38-126 Final [place] U/L [facility] (Internal) : [address] t ? ? S ? Alt 35 U/L 9-52 U/L Final [place] (Sgpt) [facility] (Internal) : [address] t ? ? S ? Ast 25 U/L 14-36 U/L Final [place] (Sgot) [facility] L ab (Internal) : [address] t 07/08/2017 CBC W/ Auto BLD ? Wbc 5.8 5.0-10.0 Final [place] Diff 10*3/uL 10*3/uL [facility] L ab (Internal) : [address] ? ? BLD Low Rbc 3.83 4.10-5.30 Final [place] 10*6/uL 10*6/uL [facility] L ab (Internal) : [address] ? ? BLD Low Hgb 11.8 g/dL 12.0-16.0 Final Nort h g/dL [facility] L ab (Internal) : [address] ? ? BLD Low Hct 35.9 % 37.0-47.0 Final [facility] L ab (Internal) : [address] t ? ? BLD ? Mcv 93.7 fL 80.0-96.0 Final [facility] L ab (Internal) : [address] t ? ? BLD ? Mch 30.8 pg 26.0-32.0 Final [facility] L ab (Internal) : [address] t ? ? BLD ? Mchc 32.9 g/dL 31.0-35.0 Final Nort h g/dL [facility] L ab (Internal) : [address] t ? ? BLD ? Rdw 13.1 % 11.5-14.5 Final [facility] L ab (Internal) : [address] t ? ? BLD ? Plt 237 130-450 Final [place] 10*3/uL 10*3/uL [facility] L ab (Internal) : [address] t ? ? BLD ? Anc 2.85 ? Final [place] 10*3/uL [facility] L ab (Internal) : [address] t ? ? BLD ? Neutro 49.0 % 40.0-75.0 Final [facility] L ab (Internal) : [address] t ? ? BLD ? Lymph 36.0 % 20.0-50.0 Final [facility] L ab (Internal) : [address] t ? ? BLD High Dunn 10.8 % 2.0-10.0 Final [facility] L ab (Internal) : [address] t ? ? BLD ? Eos 3.3 % 1.0-6.0 % Final [facility] L ab (Internal) : [address] t ? ? BLD ? Baso 0.7 % 0.0-1.0 % Final [facility] L ab (Internal) : [address] t ? ? BLD ? Ig 0.2 % 0.0-0.9 % Final [facility] L ab (Internal) : [address] t 07/01/2017 Troponin I, S ? Trop <0.06 0.00-0.06 Final [place] Serum or Plasma NG/mL NG/mL [facility] L ab (Internal) : [address] 07/01/2017 Lipase, Serum S ? Lip 68 U/L 23-300 Final [place] or Plasma U/L [facility] L ab (Internal) : [address] 07/01/2017 Ethanol, Blood S High Alc 185.0 0.0-9.9 Heather l [place] mg/dL mg/dL [facility] L ab (Internal) : [address] 07/01/2017 CMP, Serum or S ? g/r 93 mg/dL 74-106 [facility] Plasma mg/dL [facility] L ab (Internal) : [address] t ? ? S ? Bun 7 mg/dL 7-17 Final [place] mg/dL [facility] L ab (Internal) : [address] ? ? S ? Crea 0.80 mg/dL 0.52-1.04 Final [place] mg/dL [facility] L ab (Internal) : [address] t ? ? S ? Ca 9.1 mg/dL 8.4-10.2 Final [place] mg/dL [facility] L ab (Internal) : [address] ? ? S ? Na 138 mmol/L 137-145 Final [place] mmol/L [facility] L [facility] (Internal) : [address] ? ? S ? K 3.9 mmol/L 3.5-5.1 Final [place] mmol/L [facility] L ab (Internal) : [address] ? ? S Low Cl 96 mmol/L 98-107 Final [place] mmol/L [facility] L ab (Internal) : [address] ? ? S ? Tco2 26.0 22.0-30.0 Final [place] mmol/L mmol/L [facility] L ab (Internal) : [address] ? ? S ? Tp 8.0 g/dL 6.3-8.2 Final [place] g/dL [facility] L ab (Internal) : [address] ? ? S ? Alb 4.8 g/dL 3.5-5.0 Final [place] g/dL [facility] L ab (Internal) : [address] ? ? S ? Tbil 0.5 mg/dL 0.2-1.3 Final [place] mg/dL [facility] L ab (Internal) : [address] ? ? S ? Alp 82 U/L 38-126 Final [place] U/L [facility] L ab (Internal) : [address] ? ? S ? Alt 32 U/L 9-52 U/L Final [place] (Sgpt) [facility] L ab (Internal) : [address] ? ? S High Ast 79 U/L 14-36 U/L Final [place] (Sgot) [facility] L [facility] (Internal) : [address] t 07/01/2017 CBC W/ Auto BLD ? Wbc 7.9 5.0-10.0 Final [place] Diff 10*3/uL 10*3/uL [facility] (Internal) : [address] t ? ? BLD ? Rbc 4.22 4.10-5.30 Final [place] 10*6/uL 10*6/uL [facility] L ab (Internal) : [address] ? ? BLD ? Hgb 12.9 g/dL 12.0-16.0 Final Nort h g/dL [facility] L ab (Internal) : [address] ? ? BLD ? Hct 37.5 % 37.0-47.0 Final [place] % [facility] L ab (Internal) : [address] ? ? BLD ? Mcv 88.9 fL 80.0-96.0 Final [facility] L ab (Internal) : [address] ? ? BLD ? Mch 30.6 pg 26.0-32.0 Final [facility] L ab (Internal) : [address] ? ? BLD ? Mchc 34.4 g/dL 31.0-35.0 Final Nort h g/dL [facility] L ab (Internal) : [address] ? ? BLD ? Rdw 12.6 % 11.5-14.5 Final [facility] L ab (Internal) : [address] ? ? BLD ? Plt 285 130-450 Final [place] 10*3/uL 10*3/uL [facility] L ab (Internal) : [address] ? ? BLD ? Anc 3.40 ? Final [place] 10*3/uL [facility] L ab (Internal) : [address] ? ? BLD ? Neutro 43.2 % 40.0-75.0 Final [facility] L ab (Internal) : [address] ? ? BLD ? Lymph 43.6 % 20.0-50.0 Final [facility] L ab (Internal) : [address] ? ? BLD ? Dunn 9.1 % 2.0-10.0 Final [facility] L ab (Internal) : [address] ? ? BLD ? Eos 2.9 % 1.0-6.0 % Final [facility] L ab (Internal) : [address] ? ? BLD ? Baso 0.8 % 0.0-1.0 % Final [facility] L ab (Internal) : [address] ? ? BLD ? Ig 0.4 % 0.0-0.9 % Final [facility] ab (Internal) : [address] 06/01/2017 Pathology Study TISS ? Report results ? Fi nal [facility] L ab (Internal) : [address] 05/08/2017 Venipuncture BLD ? Venpn* ? ? Final [facility] ab (Internal) : [address] 05/08/2017 Type + Screen, BLD ? Abo O ? Final [facility] L ab (Internal) : [address] ? ? BLD ? Rh positive ? Final [facility] L ab (Internal) : [address] ? ? BLD ? Ab negative negative Final [facility] L ab (Internal) : [address] 05/08/2017 Magnesium, QN, S ? mg 1.8 mg/dL 1.6-2.3 F inal [place] Serum or Plasma mg/dL [facility] L ab (Internal) : [address] 05/08/2017 Partial BLD ? APTT 27 s 22-35 s Final Nort h Thromboplastin (Op) [facility] L ab (Internal) : [address] 05/08/2017 Prothrombin BLD ? Pt 10.5 S 9.1-11.7 Final [facility] L ab (Internal) : [address] ? ? BLD ? Inr 1.0 ? Final [facility] L ab (Internal) : [address] 05/08/2017 CBC W/ Auto BLD ? Wbc 6.9 5.0-10.0 Final [place] Diff 10*3/uL 10*3/uL [facility] L ab (Internal) : [address] ? ? BLD ? Rbc 4.11 4.10-5.30 Final [place] 10*6/uL 10*6/uL [facility] L ab (Internal) : [address] ? ? BLD ? Hgb 12.7 g/dL 12.0-16.0 Final Nort h g/dL [facility] L ab (Internal) : [address] ? ? BLD Low Hct 36.8 % 37.0-47.0 Final [facility] L ab (Internal) : [address] ? ? BLD ? Mcv 89.5 fL 80.0-96.0 Final [facility] L ab (Internal) : [address] ? ? BLD ? Mch 30.9 pg 26.0-32.0 Final [facility] pg [facility] (Internal) : [address] ? ? BLD ? Mchc 34.5 g/dL 31.0-35.0 Final Nort h g/dL [facility] L ab (Internal) : [address] ? ? BLD ? Rdw 13.1 % 11.5-14.5 Final [facility] L ab (Internal) : [address] ? ? BLD ? Plt 242 130-450 Final [place] 10*3/uL 10*3/uL [facility] L ab (Internal) : [address] ? ? BLD ? Anc 3.25 ? Final [place] 10*3/uL [facility] L ab (Internal) : [address] ? ? BLD ? Neutro 47.1 % 40.0-75.0 Final [facility] L ab (Internal) : [address] ? ? BLD ? Lymph 38.4 % 20.0-50.0 Final [facility] L ab (Internal) : [address] ? ? BLD High [place] 10.9 % 2.0-10.0 Final [facility] L ab (Internal) : [address] ? ? BLD ? Eos 2.3 % 1.0-6.0 % Final [facility] L ab (Internal) : [address] ? ? BLD ? Baso 1.0 % 0.0-1.0 % Final [facility] L ab (Internal) : [address] ? ? BLD ? Ig 0.3 % 0.0-0.9 % Final [facility] L ab (Internal) : [address] t 05/08/2017 CMP, Serum or S ? g/r 97 mg/dL 74-106 [facility] Plasma mg/dL [facility] L ab (Internal) : [address] ? ? S ? Bun 11 mg/dL 7-17 Final [place] mg/dL [facility] L ab (Internal) : [address] ? ? S ? Crea 0.80 mg/dL 0.52-1.04 Final [facility] mg/dL [facility] (Internal) : [address] ? ? S ? Ca 8.9 mg/dL 8.4-10.2 Final [place] mg/dL [facility] (Internal) : [address] ? ? S ? Na 137 mmol/L 137-145 Final [place] mmol/L [facility] (Internal) : [address] ? ? S ? K 3.7 mmol/L 3.5-5.1 Final [place] mmol/L [facility] L [facility] (Internal) : [address] ? ? S ? Cl 100 mmol/L 98-107 Final [place] mmol/L [facility] (Internal) : [address] ? ? S ? Tco2 22.0 22.0-30.0 Final [place] mmol/L mmol/L [facility] L [facility] (Internal) : [address] ? ? S ? Tp 7.8 g/dL 6.3-8.2 Final [place] g/dL [facility] (Internal) : [address] ? ? S ? Alb 4.8 g/dL 3.5-5.0 Final [place] g/dL [facility] (Internal) : [address] ? ? S ? Tbil 0.5 mg/dL 0.2-1.3 Final [place] mg/dL [facility] (Internal) : [address] ? ? S ? Alp 76 U/L 38-126 Final [place] U/L [facility] (Internal) : [address] ? ? S ? Alt 27 U/L 9-52 U/L Final [place] (Sgpt) [facility] (Internal) : [address] ? ? S ? Ast 27 U/L 14-36 U/L Final [place] (Sgot) [facility] L ab (Internal) : [address] Past Encounters 07/24/2020 Severe Recurrent Major Depression withou t Psychotic Features; Hypomagnesemia; Hyperlipidemia Leanne Rosa MD: [address] [place] [phone], Ph. 05/23/2020 Internal Hemorrhoids aJck Bauer MD: [address] [place] [address], Ph. 05/22/2020 Abnormal Grief Reaction; Severe Recurren t Major Depression without Psychotic Features Leanne Rosa MD: [address] [place] [address], Ph. 05/08/2020 Abnormal Grief Reaction Leanne Rosa MD: [address] [place] [address], Ph. 08/21/2019 Administration of Influenza Vaccine; Rec urrent Urinary Tract Infection; Severe Recurrent Major Depression without Psychotic Features Leanne Rosa MD: [address] [place] [address], Ph. 06/20/2019 Dysuria; Acute Urinary Tract Infection; Hyperlipidemia Leanne Rosa MD: [address] [place] [address], Ph. 06/04/2019 Lump in Left Breast; Nail Changes Magaly Porras [employer]: [address] [place] [address] [place] [address], Ph. Social History Tobacco Smoking Status Former Smoker Notes: Quit 2012 Vaccine List Vaccine Type influenza, injectable, quadrivalent, pre servative free 10/11/2017?0.5 mL 08/21/2019?0.5 mL influenza, intradermal, quadrivalent, pr eservative free 08/09/2018 influenza, seasonal, injectable 08/21/2015?0.5 mL 09/10/2016 influenza, seasonal, injectable, preserv ative free 07/30/2013?0.5 mL 07/23/2014?0.5 mL pneumococcal polysaccharide PPV23 07/30/2013?0.5 mL Plan of Care Reminders Provider Appointments None ? ? recorded. Lab None ? ? recorded. Referral None ? ? recorded. Procedures None ? ? recorded. Surgeries None ? ? recorded. Imaging None ? ? recorded. Vitals 07/24/2020 01:20PM Follow Up 20 Height Weight Blood Pressure 154.94 cm 118/70 mm[Hg] 05/23/2020 10:15AM Acute 15 Height Blood Pressure 154.94 cm 118/76 mm[Hg] 05/22/2020 01:00PM Follow Up 20 Height Weight BMI Blood Pressure 154.94 cm 56.44 kg 23.5 kg/m2 140/80 mm[Hg] 05/08/2020 03:40PM Acute 20 Height Weight BMI Blood Pressure 154.94 cm 54.46 kg 22.7 kg/m2 128/78 mm[Hg] 08/21/2019 12:40PM Follow Up 20 Height Weight BMI Blood Pressure 154.94 cm 55.2 kg 23 kg/m2 132/70 mm[Hg] 06/20/2019 02:40PM Acute 20 Height Weight BMI Blood Pressure 154.94 cm 61.33 kg 25.5 kg/m2 140/84 mm[Hg] 06/04/2019 10:20AM Same Day 20 Height Weight BMI Blood Pressure 154.94 cm 59.6 kg 24.8 kg/m2 126/68 mm[Hg] 01/15/2019 09:40AM Acute 20 Height Weight BMI Blood Pressure 154.94 cm 69.43 kg 28.9 kg/m2 130/80 mm[Hg] 08/14/2018 01:00PM Follow Up 20 Height Weight BMI Blood Pressure 154.94 cm 69.17 kg 28.8 kg/m2 132/78 mm[Hg] 06/12/2018 03:00PM Follow Up 20 Height Weight BMI Blood Pressure 154.94 cm 68.95 kg 28.7 kg/m2 130/82 mm[Hg] 02/09/2018 Weight Blood Pressure 70.55 kg 120/76 mm[Hg] 10/11/2017 Weight Blood Pressure 68.81 kg 142/86 mm[Hg] 08/10/2017 Weight Blood Pressure 68.05 kg 110/70 mm[Hg] 07/26/2017 Weight Blood Pressure 67.1 kg 106/68 mm[Hg] 07/12/2017 Weight Blood Pressure 67.59 kg 100/68 mm[Hg] 07/08/2017 Height Weight Blood Pressure 154.94 cm 68.49 kg 128/84 mm[Hg] 07/06/2017 Weight Blood Pressure 68.49 kg 128/84 mm[Hg] 06/27/2017 Weight Blood Pressure 67.13 kg 136/82 mm[Hg] 06/20/2017 Height Weight Blood Pressure 154.94 cm 66.68 kg 132/76 mm[Hg] 05/27/2017 Weight Blood Pressure 66.22 kg 132/84 mm[Hg] 01/12/2017 Weight Blood Pressure 67.54 kg 130/90 mm[Hg] 08/21/2015 Height Weight Blood Pressure 156.25 cm 68.45 kg 120/78 mm[Hg] 02/10/2015 Weight Blood Pressure 68.86 kg 138/90 mm[Hg] 01/10/2015 Height Weight Blood Pressure 156.21 cm 72.8 kg 140/86 mm[Hg] 11/27/2014 Weight Blood Pressure 70.31 kg 126/82 mm[Hg] 11/04/2014 Weight Blood Pressure 69.4 kg 138/80 mm[Hg] 10/25/2014 Weight Blood Pressure 68.95 kg 128/78 mm[Hg] 09/30/2014 Weight Blood Pressure 66.63 kg 118/72 mm[Hg] 09/16/2014 Weight Blood Pressure 68.86 kg 118/74 mm[Hg] 07/23/2014 Weight Blood Pressure 68.99 kg 130/80 mm[Hg] 05/07/2014 Height Weight Blood Pressure 156.21 cm 73.16 kg 117/80 mm[Hg] 02/06/2014 Height Weight Blood Pressure 156.21 cm 77.56 kg 130/60 mm[Hg] 12/17/2013 Weight Blood Pressure 73.8 kg 110/70 mm[Hg] 10/16/2013 Height Weight Blood Pressure 156.21 cm 72.57 kg 122/74 mm[Hg] 09/05/2013 Height Weight Blood Pressure 156.21 cm 72.57 kg 120/62 mm[Hg] 08/30/2013 Height Weight Blood Pressure 156.21 cm 72.76 kg 122/74 mm[Hg] 08/22/2013 Height Weight Blood Pressure 156.21 cm 74.71 kg 138/74 mm[Hg] 07/30/2013 Height Weight Blood Pressure 157.48 cm 75.1 kg (1) 126/80 mm[Hg] (2) 112/74 mm[Hg] 06/26/2013 Weight Blood Pressure 68.49 kg 132/58 mm[Hg] 05/09/2013 Height Weight Blood Pressure 157.48 cm 61.64 kg 104/64 mm[Hg] 04/23/2013 Height Weight Blood Pressure 157.48 cm 60.95 kg 120/80 mm[Hg] 04/13/2013 Height Weight Blood Pressure 157.48 cm 61.23 kg 108/60 mm[Hg] 03/09/2013 Weight Blood Pressure 61.82 kg 106/68 mm[Hg] 02/07/2013 Height Weight Blood Pressure 157.48 cm 61.37 kg 126/70 mm[Hg] 01/15/2013 Weight Blood Pressure 59.1 kg 112/68 mm[Hg] 06/26/2012 Weight Blood Pressure 61.78 kg 102/68 mm[Hg] 03/27/2012 Height Weight Blood Pressure 157.48 cm 58.33 kg 118/66 mm[Hg] 03/13/2012 Weight Blood Pressure 57.42 kg 112/62 mm[Hg] 11/12/2011 Weight Blood Pressure 55.79 kg 118/78 mm[Hg] 11/05/2010 Weight Blood Pressure 54.98 kg 100/60 mm[Hg] 10/23/2010 Weight Blood Pressure 54.66 kg 100/64 mm[Hg] 10/22/2010 Weight Blood Pressure 55.61 kg 122/70 mm[Hg] 10/13/2010 Weight Blood Pressure 57.24 kg 140/80 mm[Hg] 07/29/2010 Weight Blood Pressure 59.96 kg 110/60 mm[Hg] 07/01/2010 Weight Blood Pressure 61.73 kg 108/64 mm[Hg] 02/10/2010 Weight 68.49 kg 01/14/2010 Weight Blood Pressure 68.49 kg 136/76 mm[Hg] 01/05/2010 Weight Blood Pressure 68.95 kg 140/80 mm[Hg] 11/10/2009 Blood Pressure 130/88 mm[Hg] 10/21/2009 Weight Blood Pressure 68.04 kg 120/70 mm[Hg] 03/26/2009 Weight Blood Pressure 69.4 kg 108/66 mm[Hg] 09/13/2008 Weight Blood Pressure 69.4 kg 116/66 mm[Hg] 08/14/2008 Weight Blood Pressure 68.49 kg 112/62 mm[Hg] 07/30/2008 Weight Blood Pressure 67.13 kg 124/68 mm[Hg] 07/23/2008 Weight Blood Pressure 68.04 kg 144/80 mm[Hg] 07/16/2008 Weight Blood Pressure 69.4 kg 130/80 mm[Hg] 01/04/2008 Weight Blood Pressure 68.04 kg 130/74 mm[Hg] 03/31/2007 Weight Blood Pressure 61.69 kg 120/70 mm[Hg] 01/23/2007 Weight Blood Pressure 63.5 kg 122/78 mm[Hg] 11/25/2006 Weight Blood Pressure 62.14 kg 130/78 mm[Hg] 03/04/2006 Weight Blood Pressure 60.33 kg 117/74 mm[Hg] 11/12/2005 Weight Blood Pressure 59.87 kg 138/72 mm[Hg] 09/21/2004 Weight Blood Pressure 60.78 kg 126/70 mm[Hg]
--- NOTE | 2020-12-02 15:26 | ED.GENADUL_ITS ---
Discharge Plan Disposition Patient Disposition: [facility] Condition: Stable Discharge Details Clinical Impression: Depression, Suicidal ideation Primary Care Provider: Mario Dalton ED Provider: Roger Pandey Home Meds and New Rx's Prescriptions: No Action clonazepam 1 mg Tablet 1 mg PO DAILY RF: 0 melatonin 3 mg Tablet 6 mg PO DAILY RF: 0 quetiapine [Seroquel] 100 mg Tablet 50 mg PO DAILY RF: 0 diazepam 5 mg tablet 5 mg PO DAILY RF: 0 esomeprazole magnesium [Nexium 24HR] 20 mg Capsule,Delayed Release(Dr/Ec) 20 mg PO DAILY RF: 0 Discharge Instructions Instructions: Depression (DC), Suicide Prevention (DC) Additional Instructions: voluntary admission for inpatient psychiatric care Referrals: Mario Dalton [Primary Care Provider] - (on discharge ) Discharge Orders Discharge Orders: Discharge Order (Routine); Ordered 12/03/20 Ordered By: Deloris Trevizo Medical Decision Making <CECILE Vegas - Last Filed: 12/03/20 12:43> Patient continues to request discharge, I have made patient aware that I am not uncomfortable with her being discharged and she is agreeable to stay voluntarily She is actually much more calm at time of reevaluation, 1700 She is given a dose of Klonopin and Valium for anxiety and acute agitation, she has cooperative She does have mild hypokalemia, 3.1, this was supplemented with 40 mEq of potassium Consult and safe for mental health Discussed with [facility] mental health counselor, patient will likely be placed, she has voluntary admission at this time At time of reevaluation, 1930, patient is expressing frustration with being unable to order additional Valium at this time, I did offer patient her nightly dose of Seroquel which she has declined, she is agitated but not aggressive or combative She is declining additional medication at this time is requesting Valium and Klonopin for sleep tonight I did relay that this to the discretion of the admitting provider Differential Diagnosis Differential Diagnosis: Suicidal ideation, mood disorder, depression, substance abuse Medical Records Medical records reviewed: Yes I reviewed the patient's medical records. Lab Data Lab results reviewed: Yes I reviewed the patient's lab results. <Edwardo Ly MD - Last Filed: 12/02/20 22:42> Due to another patient upstairs that is apparently agitated pt per powerhouse attendant is boarding in the ED under the care of the hospitalist. Pt is calm and resting in bed without other complaints than her depression and anxiety, will continue to monitor until psych placement found or until she can be admitted upstairs here. <Roger Pandey DO - Last Filed: 12/03/20 12:24> Patient was signed out to me by my colleague Dr. Edwardo Ly. Further discussion at that time it sounds like the patient was actually under the care of the hospitalist however the patient remained here in the emergency department. Patient has remained stable here in the ED, no complaints, she has been doing very well, eating and interacting well with staff. She is still a voluntary admit. She has gotten a bed acceptance to [facility] and will be transported by [facility]. All parties are in agreement. HPI <Helen Tran PA - Last Filed: 12/03/20 12:43> This 65-year-old female presents with report of suicidal ideation. Patient she has a history of mental health issues and secondary to current at home situation, she is feeling suicidal. She states last week on she had a plan to keep her car running in the garage in an attempt to harm herself, mcfadden minesh she did not make this attempt. She also denies any attempts for himself today. She denies any chest pain, shortness of breath, dizziness, weakness. She denies any homicidal ideation. She does have a plan to harm herself today but she will not share this with me. She states she is very angry with her family and no longer has a place to stay as her sister checked her out of her mother's house . 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 Patient states that she has a history of alcoholism, should not have a drink from May of this year reportedly. She denies any additional illicit drug use. Denies any additional complaints at this time. General Date/Time Provider Initiated Documentation: 12/02/20 14:57 . Related Data Home Medications Medication Instructions Recorded Confirmed clonazepam 1 mg PO DAILY 08/13/19 12/02/20 melatonin 6 mg PO DAILY 08/13/19 12/02/20 quetiapine [Seroquel] 50 mg PO DAILY 10/07/19 01/26/21 diazepam 5 mg PO DAILY 12/02/20 12/02/20 esomeprazole magnesium [Nexium 20 mg PO DAILY 12/02/20 12/02/20 24HR] Allergies Allergy/AdvReac Type Severity Reaction Status Date / Time levofloxacin [From Levaquin] Allergy Intermediate Swelling/Ed Unverified 15:04 annalisa lorazepam [From Ativan] AdvReac Intermediate Other (See Unverified 12/02/20 15:42 Comment) trazodone AdvReac Intermediate Other (See Unverified 12/02/20 15:04 Comment) General Stated Complaint: PsychEval DAIN: 2 <Edwardo Ly MD - Last Filed: 12/02/20 22:42> This 65-year-old female presents with report of suicidal ideation. Patient she has a history of mental health issues and secondary to current at home situation, she is feeling suicidal. She states last week on she had a plan to keep her car running in the garage in an attempt to harm herself, however she did not make this attempt. She also denies any attempts for himself today. She denies any chest pain, shortness of breath, dizziness, weakness. She denies any homicidal ideation. She does have a plan to harm herself today but she will not share this with me. She states she is very angry with her family and no longer has a place to stay as her sister checked her out of her mother's house . 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 Patient states that she has a history of alcoholism, should not have a drink from May of this year reportedly. She denies any additional illicit drug use. Denies any additional complaints at this time. <Roger Pandey DO - Last Filed: 12/03/20 12:24> This 65-year-old female presents with report of suicidal ideation. Patient she has a history of mental health issues and secondary to current at home situation, she is feeling suicidal. She states last week on she had a plan to keep her car running in the garage in an attempt to harm herself, however she did not make this attempt. She also denies any attempts for himself today. She denies any chest pain, shortness of breath, dizziness, weakness. She denies any homicidal ideation. She does have a plan to harm herself today but she will not share this with me. She states she is very angry with her family and no longer has a place to stay as her sister checked her out of her mother's house . 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 Patient states that she has a history of alcoholism, should not have a drink from May of this year reportedly. She denies any additional illicit drug use. Denies any additional complaints at this time. Review of Systems <CECILE Vegas - Last Filed: 12/03/20 12:43> Narrative: Review of systems negative x7 aside from where indicated in HPI PFSH <CECILE Vegas - Last Filed: 12/03/20 12:43> Medical History (Updated 12/03/20 @ 10:02 by Deloris Trevizo NP) Anxiety Depression Surgical History History of cholecystectomy History of hysterectomy Social History Smoking/Tobacco Use Status: Former Tobacco Use Smoking risk assessment performed?: Yes Alcohol Intake: former Substance use type: does not use Current gender identity: female Do you feel safe at home: Yes Do you feel safe in your relationship?: Yes Exam <CECILE Vegas Last Filed: 12/03/20 12:43> Const General: anxious Orientation: alert, awake and oriented x3 HENMT Head: normal to inspection Eyes Pupils: PERRL Resp Effort & Inspection: normal respiratory effort Cardio Rate: regular rate Rhythm: regular rhythm Skin General skin exam: no rashes or lesions noted Neuro General: patient alert and patient oriented x3 Cranial Nerves: CN's II-XI intact bilaterally Cognition: normal cognition Sensory Exam: no sensory deficits noted Psych Appearance: disheveled Mental Status: mental status grossly normal Speech and Movement: agitated Mood: angry Affect: hostile Attitude: belligerent Thought Process: tangential Thought Content: suicidality Course <CECILE Vegas Last Filed: 12/03/20 12:43> Vital Signs Vital signs: Vital Signs Temperature 36.9 C 12/02/20 15:01 Pulse 107 H 12/02/20 15:01 Respiratory Rate 20 12/02/20 15:01 Blood Pressure 161/95 H 12/02/20 15:01 Pulse Oximetry 95 12/02/20 15:01 Temperature 36.9 C 12/02/20 15:01 Temperature Source Skin 12/02/20 15:01 Pulse 107 H 12/02/20 15:01 Respiratory Rate 20 12/02/20 15:01 Respiratory Effort Non-Labored 12/02/20 15:11 Blood Pressure 161/95 H 12/02/20 15:01 Blood Pressure Position Sitting 12/02/20 15:01 Pulse Oximetry 95 12/02/20 15:01 Oxygen Delivery Method Room Air 12/02/20 15:01 Oxygen Flow Rate 0 12/02/20 15:01 Pain Level 0 12/02/20 15:01 Sign Out <CECILE Vegas - Last Filed: 12/03/20 12:43> Sign Out Data: Sign Out Comment: psych obs, pending hospitalist admission Last updated by Helen Tran PA at 12/02/20 20:53 Sign Out Comment: depression/si/anxiety, voluntary. Hospitalist accepted for admission but due to another agitated patient that's admitted pt remaining in ED Last updated by Edwardo Ly MD at 12/02/20 22:42
[2020-12-02 15:44] LABS: Abs Immature Grans 0.02 10^3/uL (0.0-0.06); Absolute Basophil Count 0.05 10^3/uL (0.0-0.2); Absolute Eosinophil Count 0.05 10^3/uL (0.0-0.7); Absolute Lymphocyte Count 1.57 10^3/uL (1.2-3.4); Absolute Monocyte Count 0.79 10^3/uL (0.1-0.8); Absolute Neutrophil Count 6.74 10^3/uL (1.2-6.7); Basophils % 0.5; Eosinophils % 0.5; HGB 12.6 g/dL (11.2-15.7); Immature Grans % 0.2; MCH 29.9 pg (27.0-33.0); MCHC 33.2 % (32.0-36.0); MPV 10.2 fL (8.0-11.0); Monocytes % 8.6; Neutrophils % 73.2; Nucleated RBC 0 %; Platelet Count 240 10^3/uL (130-400); RBC 4.22 10^6/uL (3.93-5.22); RDW 13.2 % (11.7-14.6); RDW-SD 43.8 fL; WBC 9.22 10^3/uL (4.4-10.8)
[2020-12-02] MEDS: diazePAM 5 MG TAB PO (15:49)
[2020-12-02 16:15] LABS: ALT 24 U/L (14-59); AST 17 U/L (15-37); Albumin 4.5 g/dL (3.4-5.0); Alkaline Phosphatase 64 U/L (46-116); BUN 7 mg/dL (7-18); Bilirubin, Total 0.4 mg/dL (0.2-1.0); CREATININE 0.85 mg/dL (0.55-1.02); Chloride 100 mmol/L (98-107); Glucose 99 mg/dL (74-106); Potassium 3.1 mmol/L (3.5-5.1); Sodium 137 mmol/L (136-145); TSH 0.83 uIU/mL (0.36-3.74)
[2020-12-02 16:21] LABS: Salicylate < 2.8 mg/dL (2.8-20.0)
[2020-12-02 16:22] LABS: *AMPHETAMINES SCREEN URINE Negative (Negative); *BARBITURATES SCREEN URINE Negative (Negative); *BENZODIAZEPINES SCREEN URINE POSITIVE (Negative); Cannabinoids THC Negative (Negative); Cocaine Screen,Urine Negative (Negative); METHADONE URINE SCREEN Negative (Negative); OPIATES URINE SCREEN Negative (Negative)
[2020-12-02 16:29] LABS: Tricyclic Antidepressants Negative (Negative)
[2020-12-02 16:36] LABS: Acetaminophen < 2 ug/mL (10-30)
[2020-12-02 16:59] LABS: ETHANOL BLOOD < 3.0 mg/dL (<3)
[2020-12-02] MEDS: clonazePAM 1 MG TAB PO ×2 (17:05→20:41)
[2020-12-02] MEDS: Potassium Chloride 20 MEQ TABCR 40 MEQ PO (17:05)
--- NOTE | 2020-12-02 18:34 | CMSP_ITS ---
- If Service Date Differs Date of service: 12/02/20 Time of Service: 18:34 Care Management Safety Plan Status: Voluntary Chief Complaint: Sandra is a 65 year old female who presents to the ER for suicidal ideation with a plan of overdosing or dying by carbon monoxide poisoning. Sandra shares she has struggled with depression for a long time. She also seems to have difficulty sitting still and appears quite anxious. The cloth printing utility worker to her SI is reported as stress in her living situation and the inability to find a therapist in the community. Sandra was evaluated by Tanner, [facility] Crisis Screener, and found to meet criteria for a voluntary psych hospitalization. A referral has been made to the [facility]. [facility] INPATIENT [facility]RIC STABIL[facility]. Patient is appropriate in all interactions since arriving at [facility]; Pt has demonstrated appropriate coping and communication skills, has articulated his or her needs and concerns and is fully engaged during staff interactions. Safety plan has been established with patient, and care team, to adhere to patient goals, identify restrictions based on behavioral status, address nutrition, and determine allowed personal belongings, tools for hygiene and personal care. Determine level of activity including ambulation, level of supervision, visitors, and determine privileges based on behaviors and level of engagement by pt. SAFETY PLAN: 1. Will remain on suicide precautions and in paper clothes. 2. Will remain in room under direct supervision of one-on-one staff at all times provided by [employer], WOUND CARE CENTER CONSULTANT, FINISH CLEANER recovery coordinator. 3. May have paper cups, plates, finger foods as well as a cardboard spoon with which to eat meals. 4. Follow [facility] Management of the Admitted Behavioral Health Patient policy. 5. Comfort bath system only while in the ED. Allowed to shower with supervision and at nursing discretion if moved to Med/Surg. 6. No personal belongings. 7. Visitors-No visitors per [facility] Covid policy. 8. Activities: Television when available, soft cart items, and other activities at nursing discretion. 9. Bathroom privileges: Must be accompanied by staff while in the ED. If moved to Med/Surg, will be allowed to use bathroom in room with no restrictions. 10. Phone: No phone privileges at this time. 11. Due to VOLUNTARY status, if patient wishes to leave [facility], staff will contact [facility] Crisis Screener ([phone]) and On-Call Tobacco Wrapping Machine Tender ([phone]) as soon as possible. In the event of elopement, notify [facility] Police ([phone]). Patient is currently voluntarily at [facility] and seeking inpatient admission when a bed becomes available. [facility] Frontline Forest Manager will continue seeking placement. Please contact the Peat Shredder Tender Tobacco Wrapping Machine Tender ([phone]) and [facility] Crisi s Worker ([phone]) for any needed changes in the Safety Plan. Safety plan has been provided to interdepartmental care team.
--- NOTE | 2020-12-02 18:35 | PDOC.MHCN ---
Date of service: 12/02/20 Time of Service: 17:20 Mental Health Crisis Note Presenting Issue How did you arrive at the ED and why did you come: Patient arrived at the ER experiencing depression and Si with a plan to kill herself by taking pills and leaving judith running in the garage with doors closed, carbon monoxide poisoning. Precipitating Factors Patient shared that she has a lot of stress and anxiety at home currently with her siblings all home and she feels that she has been pushed out and treated poorly. Patient shared that she has been suffering from depression for a very long time and wants to get some help. Patient shared that she has tried to get back into therapy with no luck in finding one with available space. Patient states that she is experiencing Si and wants to go to sleep forever, Patient stated that her dad would love for her to be with him in [facility]. Disposition BEHAVIOR: cooperative EYE CONTACT: good MOOD: depressed, tearful, angry AFFECT: flat APPETITE: good SLEEP(trouble falling/staying asleep: okay some nights and not so good others, that is typical for patient. Plan Patient will remain at [facility] awaiting hospitalization for support and stabilization, medication evaluation. [facility] and a referral has been sent tonight for review in the morning. Signature Clinician's Name/Title: Tanner WILKES
[2020-12-02 19:36] VITALS: BP 144/91; PULSE 87; RESP 18; TEMP 36.9; O2SAT 96
[2020-12-02] MEDS: QUEtiapine 25 MG TAB 50 MG PO (20:41)
[2020-12-02] MEDS: Melatonin 3 MG TAB PO (20:41)
--- NOTE | 2020-12-02 22:40 | NUR.NOTE ---
Nursing Note: Report given to VIRGINIA Gonzales at 19:40 by Greta Marcano RN & Nelsy Hernandez RN. Janet accepted report and assumed care of patient.
[2020-12-02 22:58] LABS: Source Nasopharynx
[2020-12-02 23:35] LABS: COVID-19 PCR Negative (Negative); Influenza A PCR Negative (Negative); Influenza B PCR Negative (Negative); RSV PCR Negative (Negative)
[2020-12-03 03:09] VITALS: BP 101/64; PULSE 73; RESP 18; TEMP 36.7; O2SAT 93
--- NOTE | 2020-12-03 06:33 | NUR.NOTE ---
Patient was very expressive about her situation this morning. She reported that she has not drank any alcohol beverages since April of 2020. She state her family are hard drinkers and her family keeps drinking alcohol around her. She went on to state that her family no longer wants her taking care of their mother whom she feels very close to especially seeing that she has been the one taking care of her mom and her late father for almost 3 years. Pt state if she cannot take of her mother again this makes her feel hopeless.
[2020-12-03 07:41] VITALS: BP 145/79; PULSE 78; RESP 20; TEMP 36.9; O2SAT 95
[2020-12-03] MEDS: Potassium Chloride 20 MEQ TABCR PO (08:11)
[2020-12-03] MEDS: Esomeprazole 20 MG CAPCR PO (08:11)
[2020-12-03] MEDS: Magnesium Oxide 400 MG TAB PO (08:12)
--- NOTE | 2020-12-03 08:26 | NUR.NOTE ---
Nursing Note: 12/03/20 0826- Spoke with Rosibel per pt request and stated per pt request that she was in [facility] and she was safe. rosibel said thank you. Spoke with pt about conversation. Pt stated thank you.
--- NOTE | 2020-12-03 09:57 | W.PM.DS.N ---
Date of service: 12/03/20 Time of Service: 09:57 DS: Diagnosis Discharge Diagnosis (1) Suicidal ideation: Status: Acute (2) Depression: Status: Chronic Discharge Plan Disposition Patient Disposition: [facility] Condition: Stable Discharge Details Clinical Impression: Depression, Suicidal ideation Primary Care Provider: Mario aDlton ED Provider: Roger Pandey Home Meds and New Rx's Prescriptions: No Action clonazepam 1 mg Tablet 1 mg PO DAILY RF: 0 melatonin 3 mg Tablet 6 mg PO DAILY RF: 0 quetiapine [Seroquel] 100 mg Tablet 50 mg PO DAILY RF: 0 diazepam 5 mg tablet 5 mg PO DAILY RF: 0 esomeprazole magnesium [Nexium 24HR] 20 mg Capsule,Delayed Release(Dr/Ec) 20 mg PO DAILY RF: 0 Discharge Instructions Instructions: Depression (DC), Suicide Prevention (DC) Additional Instructions: voluntary admission for inpatient psychiatric care Referrals: Mario Dalton [Primary Care Provider] - (on discharge ) DS: Summary Time Spent with Patient providing and/or coordinating discharge services: Greater than 30 minutes Status at Discharge Functional status at discharge: independent ambulation Overall status at discharge: patient is not back to baseline Mental Status: mental status grossly normal Speech and Movement: agitated Mood: angry Affect: hostile Exam Const General: anxious Orientation: alert, awake and oriented x3 HENMT Head: normal to inspection Eyes Pupils: PERRL Resp Effort & Inspection: normal respiratory effort Cardio Rate: regular rate Rhythm: regular rhythm Skin General skin exam: no rashes or lesions noted Neuro General: patient alert and patient oriented x3 Cranial Nerves: CN's II-XI intact bilaterally Cognition: normal cognition Sensory Exam: no sensory deficits noted Psych Appearance: disheveled Mental Status: mental status grossly normal Speech and Movement: agitated Mood: angry Affect: hostile Attitude: belligerent Thought Process: tangential Thought Content: suicidality DS: Data Vitals/I&O Vitals and I&O: Vital Signs Temperature 36.9 C 12/03/20 07:41 Temperature Source Temporal Artery Scan 12/03/20 07:41 Pulse 78 12/03/20 07:41 Respiratory Rate 20 12/03/20 07:41 Respiratory Effort Non-Labored 12/02/20 15:11 Blood Pressure 145/79 H 12/03/20 07:41 Blood Pressure Position Sitting 12/02/20 15:01 Pulse Oximetry 95 12/03/20 07:41 Oxygen Delivery Method Room Air 12/03/20 07:41 Oxygen Flow Rate 0 12/03/20 07:41 Pain Level 0 12/03/20 07:41 Intake & Output 12/02/20 12/02/20 12/03/20 11:59 23:59 11:59 Weight 68.039 kg Other: Comment patient voids independently in the bathroom reported by pt, unseen by nursing Stool Characteristics Soft Formed Voiding Methods Toilet Data Completed and Pending Labs on day of discharge: Labs from last 24 hours 12/03/20 12/02/20 12/02/20 09:46 22:52 16:16 WBC RBC Hgb Hct MCV MCH MCHC RDW Plt Count MPV Immature Gran % Neutrophils % Lymphocytes % Monocytes % Eosinophils % Basophils % Nucleated RBC % Absolute Neutrophils Absolute Lymphocytes Absolute Monocytes Absolute Eosinophils Absolute Basophils VBG pH VBG pCO2 VBG pO2 VBG HCO3 VBG Total CO2 VBG O2 Saturation VBG Base Excess VBG Lactate Sodium Pending Potassium Pending Chloride Pending Carbon Dioxide Pending Anion Gap Pending BUN Pending Creatinine Pending Estimated GFR/1.73 m2 Pending Glucose Pending Calcium Pending Total Bilirubin AST ALT Alkaline Phosphatase Troponin I NT-Pro-B Natriuret Pep Total Protein Albumin TSH Salicylates Urine Opiates Screen Urine Methadone Screen Acetaminophen Ur Barbiturates Screen Ur Tricyclics Screen Ur Amphetamines Screen U Benzodiazepines Scrn Urine Cocaine Screen Ur THC Screen Ethyl Alcohol COVID-19 Source Nasopharynx Cancelled SARS-CoV-2 (PCR) Negative Cancelled Influenza Type A (PCR) Negative Cancelled Influenza Type B (PCR) Negative Cancelled RSV (PCR) Negative Cancelled 12/02/20 12/02/20 12/02/20 16:12 16:12 16:12 WBC Cancelled RBC Cancelled Hgb Cancelled Hct Cancelled MCV Cancelled MCH Cancelled MCHC Cancelled RDW Cancelled Plt Count Cancelled MPV Cancelled Immature Gran % Neutrophils % Lymphocytes % Monocytes % Eosinophils % Basophils % Nucleated RBC % Absolute Neutrophils Absolute Lymphocytes Absolute Monocytes Absolute Eosinophils Absolute Basophils VBG pH Cancelled VBG pCO2 Cancelled VBG pO2 Cancelled VBG HCO3 Cancelled VBG Total CO2 Cancelled VBG O2 Saturation Cancelled VBG Base Excess Cancelled VBG Lactate Cancelled Sodium Potassium Chloride Carbon Dioxide Anion Gap BUN Creatinine Estimated GFR/1.73 m2 Glucose Calcium Total Bilirubin AST ALT Alkaline Phosphatase Troponin I NT-Pro-B Natriuret Pep Total Protein Albumin TSH Salicylates Urine Opiates Screen Urine Methadone Screen Acetaminophen Ur Barbiturates Screen Ur Tricyclics Screen Ur Amphetamines Screen U Benzodiazepines Scrn Urine Cocaine Screen Ur THC Screen Ethyl Alcohol COVID-19 Source SARS-CoV-2 (PCR) Influenza Type A (PCR) Influenza Type B (PCR) RSV (PCR) 12/02/20 12/02/20 12/02/20 16:12 15:50 15:30 WBC 9.22 RBC 4.22 Hgb 12.6 Hct 38.0 MCV 90.0 MCH 29.9 MCHC 33.2 RDW 13.2 Plt Count 240 MPV 10.2 Immature Gran % 0.2 Neutrophils % 73.2 Lymphocytes % 17.0 Monocytes % 8.6 Eosinophils % 0.5 Basophils % 0.5 Nucleated RBC % 0 Absolute Neutrophils 6.74 H Absolute Lymphocytes 1.57 Absolute Monocytes 0.79 Absolute Eosinophils 0.05 Absolute Basophils 0.05 VBG pH VBG pCO2 VBG pO2 VBG HCO3 VBG Total CO2 VBG O2 Saturation VBG Base Excess VBG Lactate Sodium Cancelled Potassium Cancelled Chloride Cancelled Carbon Dioxide Cancelled Anion Gap Cancelled BUN Cancelled Creatinine Cancelled Estimated GFR/1.73 m2 Cancelled Glucose Cancelled Calcium Cancelled Total Bilirubin Cancelled AST Cancelled ALT Cancelled Alkaline Phosphatase Cancelled Troponin I Cancelled NT-Pro-B Natriuret Pep Cancelled Total Protein Cancelled Albumin Cancelled TSH Salicylates Urine Opiates Screen Negative Urine Methadone Screen Negative Acetaminophen Ur Barbiturates Screen Negative Ur Tricyclics Screen Negative Ur Amphetamines Screen Negative U Benzodiazepines Scrn Positive A Urine Cocaine Screen Negative Ur THC Screen Negative Ethyl Alcohol COVID-19 Source SARS-CoV-2 (PCR) Influenza Type A (PCR) Influenza Type B (PCR) RSV (PCR) 12/02/20 12/02/20 15:30 15:30 WBC RBC Hgb Hct MCV MCH MCHC RDW Plt Count MPV Immature Gran % Neutrophils % Lymphocytes % Monocytes % Eosinophils % Basophils % Nucleated RBC % Absolute Neutrophils Absolute Lymphocytes Absolute Monocytes Absolute Eosinophils Absolute Basophils VBG pH VBG pCO2 VBG pO2 VBG HCO3 VBG Total CO2 VBG O2 Saturation VBG Base Excess VBG Lactate Sodium 137 Potassium 3.1 L Chloride 100 Carbon Dioxide 29.0 Anion Gap 8.0 BUN 7 Creatinine 0.85 Estimated GFR/1.73 m2 >= 60.00 Glucose 99 Calcium 9.0 Total Bilirubin 0.4 AST 17 ALT 24 Alkaline Phosphatase 64 Troponin I NT-Pro-B Natriuret Pep Total Protein 8.0 Albumin 4.5 TSH 0.83 Salicylates < 2.8 Urine Opiates Screen Urine Methadone Screen Acetaminophen < 2 Ur Barbiturates Screen Ur Tricyclics Screen Ur Amphetamines Screen U Benzodiazepines Scrn Urine Cocaine Screen Ur THC Screen Ethyl Alcohol < 3.0 COVID-19 Source SARS-CoV-2 (PCR) Influenza Type A (PCR) Influenza Type B (PCR) RSV (PCR) [facility] Medical History (Updated 12/03/20 @ 10:02 by Deloris Trevizo NP) Anxiety Depression Surgical History History of cholecystectomy History of hysterectomy Social History Smoking/Tobacco Use Status: Former Tobacco Use Smoking risk assessment performed?: Yes Alcohol Intake: former Substance use type: does not use Current gender identity: female Do you feel safe at home: Yes Do you feel safe in your relationship?: Yes
--- NOTE | 2020-12-03 10:00 | RT.EKG_ITS ---
APPROVED REPORT Exam: Resting ECG Patient Location: E HR:79 bpm ECG Measurements Heart Rate 79 AXIS [place] 174 P 55 QRSd 104 QRS 83 QT 383 T 75 QTc 440 Conclusion Sinus rhythm...normal P axis, V-rate 60- 99 I have reviewed and interpreted ECG and agree with software generated interpretation.
[2020-12-03] MEDS: hydrOXYzine HCL 25 MG TAB PO (10:11)
[2020-12-03 11:04] LABS: BUN 7 mg/dL (7-18); CREATININE 0.87 mg/dL (0.55-1.02); Calcium 9.7 mg/dL (8.5-10.1); Chloride 100 mmol/L (98-107); Glucose 106 mg/dL (74-106); Sodium 138 mmol/L (136-145)
[2020-12-03 11:06] LABS: Bilirubin Negative (Negative); Blood Negative (Negative); Clarity Clear (Clear); Glucose Negative (Negative); Ketones Negative (Negative); Leukocyte Esterase Negative (Negative); Nitrite Negative (Negative); Specific Gravity 1.015 (1.005-1.025); Urobilinogen 0.2 EU/dL (Up TO 0.2)
--- NOTE | 2020-12-03 11:58 | NUR.NOTE ---
Nursing Note: 12/03/20 1156- Attempted to call nursing report to [facility], spoke with Edwardo who stated they were not ready to take report at this time.
--- NOTE | 2020-12-03 12:16 | NUR.NOTE ---
Nursing Note: 12/03/20 1216 Spoke with Shawanda at [facility] in a nurse to nurse report. She stated patient was accepted and to arrange transport.
--- NOTE | 2020-12-03 12:47 | NUR.NOTE ---
Nursing Note: 12/03/20 Spoke with Jamie at [facility] regarding patient departed with rocio and belongings including purse and clothing.
--- NOTE | 2020-12-03 12:48 | HPE_ITS ---
Date of service: 12/03/20 Time of Service: 05:39 Assessment and Plan Assessment and plan (1) Suicidal ideation: Status: Acute Assessment and plan: She agrees to placement in a psychiatric facility. She is on Seroquel nightly along with Valium and reportedly, clonazepam. (2) Depression: Status: Chronic Assessment and plan: Psychiatric placement for evaluation and further treatment. Qualifiers: Depression Type: major depressive disorder Major depression recurrence: recurrent Active/Remission status: currently active Major depression episode severity: severe Psychotic features: without psychotic features Qualified Code(s): F33.2 - Major depressive disorder, recurrent severe without psychotic features History of Present Illness History of Present Illness Chief Complaint: suicidal ideations. Narrative: Patient she has a history of mental health issues; depression and anxiety. She presented feeling suicidal. She stated that last she had a plan to keep her car running in the garage in an attempt to harm herself, however she did not make this attempt. She denied any attempts of harm to herself on day of admission. She denied any homicidal ideation. She endorsed, to the ED provider, that she did have a plan to harm herself on day of admission but she would not reveal it. She stated she was very angry with her family and no longer has a place to stay. She endorsed that her sister checked her out of her mother's house . 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 Patient stated that she has a history of alcoholism, but denies any intake since May. She denied any additional illicit drug use. No CP, palpitations, cough, F/C, N/V/abd pain. Review of Systems All systems reviewed & are unremarkable except as noted in HPI and below PFSH Medical History Anxiety Depression Surgical History History of cholecystectomy History of hysterectomy Social History Smoking/Tobacco Use Status: Former Tobacco Use Smoking risk assessment performed?: Yes Alcohol Intake: former Substance use type: does not use Current gender identity: female Do you feel safe at home: Yes Do you feel safe in your relationship?: Yes Meds Home Medications and Allergies Home Medications Medication Instructions Recorded Confirmed Type clonazepam 1 mg PO DAILY 08/13/19 12/02/20 History melatonin 6 mg PO DAILY 08/13/19 12/02/20 History quetiapine [Seroquel] 50 mg PO DAILY 08/13/19 12/02/20 History diazepam 5 mg PO DAILY 12/02/20 12/02/20 History esomeprazole magnesium [Nexium 20 mg PO DAILY 12/02/20 12/02/20 History 24HR] Allergies Allergy/AdvReac Type Severity Reaction Status Date / Time levofloxacin [From Levaquin] Allergy Intermediate Swelling/Ed Unverified 12/02/20 15:04 annalisa lorazepam [From Ativan] AdvReac Intermediate Other (See Unverified 12/02/20 15:42 Comment) trazodone AdvReac Intermediate Other (See Unverified 12/02/20 15:04 Comment) Exam Narrative Exam Narrative: Pacing in the room. She does make eye contact. Const General: no acute distress and other Nutritional Appearance: average body habitus Orientation: alert and oriented x3 Eyes Sclera: sclerae normal Pupils: PERRL Resp Effort & Inspection: normal respiratory effort Auscultation: clear to auscultation bilaterally Cardio Rate: regular rate Rhythm: regular rhythm Heart Sounds: S1 normal and S2 normal GI Palpation: soft and nontender Skin General skin exam: no rashes or lesions noted Extrem General: no pedal edema and no calf tenderness Psych Appearance: grossly normal Speech and Movement: speech and movement normal Mood: angry Affect: hostile (but measured and not aggressive) Results Labs Result diagrams: 12/02/20 15:30 12/03/20 10:48 Labs: Laboratory Results - last 24 hr 12/02/20 12/02/20 12/02/20 15:30 15:30 15:30 WBC 9.22 RBC 4.22 Hgb 12.6 Hct 38.0 MCV 90.0 MCH 29.9 MCHC 33.2 RDW 13.2 Plt Count 240 MPV 10.2 Immature Gran % 0.2 Neutrophils % 73.2 Lymphocytes % 17.0 Monocytes % 8.6 Eosinophils % 0.5 Basophils % 0.5 Nucleated RBC % 0 Absolute Neutrophils 6.74 H Absolute Lymphocytes 1.57 Absolute Monocytes 0.79 Absolute Eosinophils 0.05 Absolute Basophils 0.05 VBG pH VBG pCO2 VBG pO2 VBG HCO3 VBG Total CO2 VBG O2 Saturation VBG Base Excess VBG Lactate Sodium 137 Potassium 3.1 L Chloride 100 Carbon Dioxide 29.0 Anion Gap 8.0 BUN 7 Creatinine 0.85 Estimated GFR/1.73 m2 >= 60.00 Glucose 99 Calcium 9.0 Total Bilirubin 0.4 AST 17 ALT 24 Alkaline Phosphatase 64 Troponin I NT-Pro-B Natriuret Pep Total Protein 8.0 Albumin 4.5 TSH 0.83 Urine Color Urine Clarity Urine pH Ur Specific [place] Urine Protein Urine Ketones Urine Blood Urine Nitrite Urine Bilirubin Urine Urobilinogen Ur Leukocyte Esterase Urine Glucose Salicylates < 2.8 Urine Opiates Screen Urine Methadone Screen Acetaminophen < 2 Ur Barbiturates Screen Ur Tricyclics Screen Ur Amphetamines Screen U Benzodiazepines Scrn Urine Cocaine Screen Ur THC Screen Ethyl Alcohol < 3.0 COVID-19 Source SARS-CoV-2 (PCR) Influenza Type A (PCR) Influenza Type B (PCR) RSV (PCR) 12/02/20 12/02/20 12/02/20 15:50 16:12 16:12 WBC RBC Hgb Hct MCV MCH MCHC RDW Plt Count MPV Immature Gran % Neutrophils % Lymphocytes % Monocytes % Eosinophils % Basophils % Nucleated RBC % Absolute Neutrophils Absolute Lymphocytes Absolute Monocytes Absolute Eosinophils Absolute Basophils VBG pH VBG pCO2 VBG pO2 VBG HCO3 VBG Total CO2 VBG O2 Saturation VBG Base Excess VBG Lactate Cancelled Sodium Cancelled Potassium Cancelled Chloride Cancelled Carbon Dioxide Cancelled Anion Gap Cancelled BUN Cancelled Creatinine Cancelled Estimated GFR/1.73 m2 Cancelled Glucose Cancelled Calcium Cancelled Total Bilirubin Cancelled AST Cancelled ALT Cancelled Alkaline Phosphatase Cancelled Troponin I Cancelled NT-Pro-B Natriuret Pep Cancelled Total Protein Cancelled Albumin Cancelled TSH Urine Color Urine Clarity Urine pH Ur Specific [place] Urine Protein Urine Ketones Urine Blood Urine Nitrite Urine Bilirubin Urine Urobilinogen Ur Leukocyte Esterase Urine Glucose Salicylates Urine Opiates Screen Negative Urine Methadone Screen Negative Acetaminophen Ur Barbiturates Screen Negative Ur Tricyclics Screen Negative Ur Amphetamines Screen Negative U Benzodiazepines Scrn Positive A Urine Cocaine Screen Negative Ur THC Screen Negative Ethyl Alcohol COVID-19 Source SARS-CoV-2 (PCR) Influenza Type A (PCR) Influenza Type B (PCR) RSV (PCR) 01/26/21 01/26/21 01/26/21 16:12 16:12 16:16 WBC Cancelled RBC Cancelled Hgb Cancelled Hct Cancelled MCV Cancelled MCH Cancelled MCHC Cancelled RDW Cancelled Plt Count Cancelled MPV Cancelled Immature Gran % Neutrophils % Lymphocytes % Monocytes % Eosinophils % Basophils % Nucleated RBC % Absolute Neutrophils Absolute Lymphocytes Absolute Monocytes Absolute Eosinophils Absolute Basophils VBG pH Cancelled VBG pCO2 Cancelled VBG pO2 Cancelled VBG HCO3 Cancelled VBG Total CO2 Cancelled VBG O2 Saturation Cancelled VBG Base Excess Cancelled VBG Lactate Sodium Potassium Chloride Carbon Dioxide Anion Gap BUN Creatinine Estimated GFR/1.73 m2 Glucose Calcium Total Bilirubin AST ALT Alkaline Phosphatase Troponin I NT-Pro-B Natriuret Pep Total Protein Albumin TSH Urine Color Urine Clarity Urine pH Ur Specific [place] Urine Protein Urine Ketones Urine Blood Urine Nitrite Urine Bilirubin Urine Urobilinogen Ur Leukocyte Esterase Urine Glucose Salicylates Urine Opiates Screen Urine Methadone Screen Acetaminophen Ur Barbiturates Screen Ur Tricyclics Screen Ur Amphetamines Screen U Benzodiazepines Scrn Urine Cocaine Screen Ur THC Screen Ethyl Alcohol COVID-19 Source Cancelled SARS-CoV-2 (PCR) Cancelled Influenza Type A (PCR) Cancelled Influenza Type B (PCR) Cancelled RSV (PCR) Cancelled 12/02/20 12/03/20 12/03/20 22:52 10:48 11:02 WBC RBC Hgb Hct MCV MCH MCHC RDW Plt Count MPV Immature Gran % Neutrophils % Lymphocytes % Monocytes % Eosinophils % Basophils % Nucleated RBC % Absolute Neutrophils Absolute Lymphocytes Absolute Monocytes Absolute Eosinophils Absolute Basophils VBG pH VBG pCO2 VBG pO2 VBG HCO3 VBG Total CO2 VBG O2 Saturation VBG Base Excess VBG Lactate Sodium 138 Potassium 4.0 D Chloride 100 Carbon Dioxide 30.0 Anion Gap 8.0 BUN 7 Creatinine 0.87 Estimated GFR/1.73 m2 >= 60.00 Glucose 106 Calcium 9.7 Total Bilirubin AST ALT Alkaline Phosphatase Troponin I NT-Pro-B Natriuret Pep Total Protein Albumin TSH Urine Color Yellow Urine Clarity Clear Urine pH 7.0 Ur Specific [place] 1.015 Urine Protein Negative Urine Ketones Negative Urine Blood Negative Urine Nitrite Negative Urine Bilirubin Negative Urine Urobilinogen 0.2 Ur Leukocyte Esterase Negative Urine Glucose Negative Salicylates Urine Opiates Screen Urine Methadone Screen Acetaminophen Ur Barbiturates Screen Ur Tricyclics Screen Ur Amphetamines Screen U Benzodiazepines Scrn Urine Cocaine Screen Ur THC Screen Ethyl Alcohol COVID-19 Source Nasopharynx SARS-CoV-2 (PCR) Negative Influenza Type A (PCR) Negative Influenza Type B (PCR) Negative RSV (PCR) Negative Last Vital Signs Temp 36.9 C 12/03/20 07:41 Pulse 78 12/03/20 07:41 Resp 20 12/03/20 07:41 BP 145/79 H 12/03/20 07:41 Pulse Ox 95 12/03/20 07:41 COVID-19 Screening Have you, or household traveled for leisure in last 14 days?: No
== END 2020-12-03 14:24 | disposition short-term general hospital (02) ==
PROVIDERS: Emergency Medicine; Internal Medicine; Nurse Practitioner Acute Care; Physician Assistant; Emergency Provider Student in an Organized Health Care Education/Training Program; PCP Family Medicine
DX: F41.8 Other specified anxiety disorders (principal); R45.851 Suicidal ideations; E87.6 Hypokalemia
CPT/HCPCS: 36415; 80048; 80053; 80307; 81025; 82805; 85027; 87040; 93005; 99217; 99221; 99285; 80320; 80329; 81003; 83605; 83880; 84443; 84484; 85025; 93010; 99235; 99284; J3490

== ENCOUNTER 2021-06-17 00:09 | Emergency (ER) | payer MEDICARE, MEDICAID, SELFPAY ==
[2021-06-17 00:12] VITALS: BP 160/99; PULSE 88; RESP 18; TEMP 36.2; O2SAT 96
--- NOTE | 2021-06-17 00:34 | ED.GENADUL_ITS ---
Discharge Plan Disposition Patient Disposition: OTHER Condition: Stable Discharge Details Clinical Impression: Major depression, Alcohol intoxication Primary Care Provider: Mario Dalton ED Provider: Rachell Alonzo Home Meds and New Rx's Prescriptions: Continued clonazepam 1 mg Tablet 2 mg PO HS RF: 0 melatonin 3 mg Tablet 6 mg PO DAILY RF: 0 quetiapine [Seroquel] 100 mg Tablet 100 mg PO HS RF: 0 famotidine 20 mg tablet 20 mg PO DAILY RF: 0 magnesium oxide 400 mg (241.3 mg magnesium) tablet 400 mg PO DAILY RF: 0 fluvoxamine 25 mg tablet 25 mg PO BID RF: 0 omeprazole 20 mg capsule,delayed release(DR/EC) 20 mg PO DAILY RF: 0 albuterol sulfate 90 mcg/actuation HFA aerosol inhaler 90 mcg INHALATION PRN PRNRF: 0 cholestyramine (with sugar) 4 gram powder 4 pwd PO DAILY RF: 0 budesonide-formoterol [Symbicort] 160-4.5 mcg/actuation HFA aerosol inhaler INHALATION RF: 0 potassium chloride 20 mEq tablet extended release 20 meq PO DAILY RF: 0 Discharge Instructions Instructions: Depression (ED), Alcohol Intoxication (ED) Additional Instructions: Go directly to the care bed for continued monitoring with [facility]. Take all of your regular medications as directed. Return immediately to the emergency department if you develop any worsening or new concerning symptoms. Discharge Data Discharge Physician: Rachell Alonzo Medical Decision Making <Edwardo Ly MD - Last Filed: 06/17/21 06:13> 65 yo female with hx of anxiety and depression with prior psychiatric hospitalizations comes in with chief complaint of depression and thoughts of wanting to overdose on her medications but hasn't. She is very anxious on exam and restless and constantly gets out of the bed and will state things like just let me out of here so I can go kill myself. She will get back in the bed when asked but will get up a few minutes later. She has smell of alcohol and has been drinking wine tonight. She denies other drug use. She denies homicidal ideation. She has no focal neuro deficits, no signs of trauma and no cranial nerve deficits. I suspect alcohol intoxication with likely underlying depression and anxiety. CPSO ordered and feel she requires IM ativan for her restlessness. Will obtain labs and reassess. prior to IM ativan patient became more calm and wanted to try her oral meds, will try her oral melatonin, klonopin and seroquel and reassess alcohol level 260, will need to be sober before seeing mental health, will monitor until she can see mental health later this morning Differential Diagnosis Differential Diagnosis: alcohol intoxication, depression, anxiety Medical Records Medical records reviewed: Yes I reviewed the patient's medical records. Lab Data Lab results reviewed: Yes I reviewed the patient's lab results. <Rachell Alonzo DO - Last Filed: 06/18/21 20:49> 06/17/21 0730 --Please see previous providers note, presentation, exam and plan. Case endorsed to have patient follow-up with mental health once clinically sober which will be at 8 AM. Patient admits to feeling overwhelmed in life with taking care of her mother who has dementia. She admits to ongoing depression. She says she has thoughts of wanting to be with her dad and has been and would overdose on her pills. She also states she needs to leave to go to work this morning at the [email or web address]. 1030 --patient evaluated by Woody with mental health and plan is to seek inpatient hospitalization for depression. 06/18/21 0800 -- No acute events overnight. Plan is for mental health evaluation this morning. Patient evaluated by sandra with [facility] who would like to place patient in a care bed. 1300 --discussed with Sandra from [facility]. Patient has been accepted to a care bed but the agency is closed for a picnic today will not be accepted until 9 AM tomorrow morning. Case discussed with hospitalist who accepts patient for admission overnight while awaiting care bed placement tomorrow. Patient has been cooperative. 1500 --medical delivery driver Dr. Caraballo discussed with [facility] and care bed is now available. Patient will be transported there now. Patient's meds were reconciled through pharmacy and transported with her to the care bed. Medical Records Medical records reviewed: Yes I reviewed the patient's medical records. HPI <Edwardo Ly MD - Last Filed: 06/17/21 06:13> General Mode of arrival: ambulatory . Date/Time Provider Initiated Documentation: 06/17/21 00:12 . Limitations to Documentation: no limitations . Information obtained by: patient . History of Present Illness 65 year old F presents to the emergency department with the chief complaint of depressed, described as moderate, Patient started experiencing this day(s) (1) and it has been constant. No relieving factors improve symptom(s), Patient notes denies cough, fever/chills and shortness of breath. Related Data Home Medications Medication Instructions Recorded Confirmed clonazepam 2 mg PO HS 08/13/19 06/18/21 melatonin 6 mg PO DAILY 08/13/19 06/17/21 quetiapine [Seroquel] 100 mg PO HS 08/13/19 06/18/21 albuterol sulfate 90 mcg INHALATION PRN PRN 06/17/21 06/17/21 budesonide-formoterol [Symbicort] INHALATION 06/17/21 06/17/21 cholestyramine (with sugar) 4 pwd PO DAILY 06/17/21 06/17/21 famotidine 20 mg PO DAILY 06/17/21 06/17/21 fluvoxamine 25 mg PO BID 06/17/21 06/17/21 magnesium oxide 400 mg PO DAILY 06/17/21 06/17/21 omeprazole 20 mg PO DAILY 06/17/21 06/17/21 potassium chloride 20 meq PO DAILY 06/17/21 06/17/21 Allergies Allergy/AdvReac Type Severity Reaction Status Date / Time levofloxacin [From Levaquin] Allergy Intermediate Swelling/Ed Unverified 06/17/21 00:18 annalisa lorazepam [From Ativan] AdvReac Intermediate Other (See Unverified 06/17/21 00:18 Comment) trazodone AdvReac Intermediate Other (See Unverified 06/17/21 00:18 Comment) General Stated Complaint: PsychEval DAIN: 2 Review of Systems <Edwardo Ly MD - Last Filed: 06/17/21 06:13> All systems reviewed & are unremarkable except as noted in HPI and below Constitutional Constitutional: Denies chills, Denies fever(s) and Denies weakness Cardiovascular Cardiovascular: Denies chest pain and Denies dyspnea Respiratory Respiratory: Denies cough and Denies dyspnea Gastrointestinal Gastrointestinal: Denies abdominal pain, Denies nausea and Denies vomiting Musculoskeletal Musculoskeletal: Denies joint swelling Neurologic Neurologic: Denies weakness PFS <Edwardo Ly MD - Last Filed: 06/17/21 06:13> Medical History (Updated 06/18/21 @ 13:47 by Deloris Trevizo NP) Anxiety Depression Surgical History History of cholecystectomy History of hysterectomy Social History Smoking/Tobacco Use Status: Former Tobacco Use Smoking risk assessment performed?: Yes Alcohol Intake: current Alcohol Intake frequency: 0-2 drinks per day Alcohol type: wine Substance use type: does not use Details: reports drinking wine today; unknown amount Current gender identity: female Do you feel safe at home: Yes Do you feel safe in your relationship?: Yes Exam <Edwardo yL MD - Last Filed: 06/17/21 06:13> Const General: anxious Orientation: alert HENNJ Head: normal to inspection Ears: external ears normal General nose exam: external nose normal Mouth: moist mucous membranes Eyes General: appearance normal, both eyes and all related structures Neck Neck: normal visual inspection Resp Effort & Inspection: normal respiratory effort and able to speak in complete sentences Cardio Rate: regular rate Skin General skin exam: no rashes or lesions noted Neuro General: patient alert and patient oriented x3 Extrem General: normal to inspection Psych Speech and Movement: restless Affect: labile affect Course <Edwardo Ly MD - Last Filed: 06/17/21 06:13> Vital Signs Vital signs: Vital Signs Temperature 36.2 C L 06/17/21 00:12 Pulse 88 06/17/21 00:12 Respiratory Rate 18 06/17/21 00:12 Blood Pressure 160/99 H 06/17/21 00:12 Pulse Oximetry 96 06/17/21 00:12 Temperature 36.2 C L 06/17/21 00:12 Temperature Source Temporal Artery Scan 06/17/21 00:12 Pulse 88 06/17/21 00:12 Respiratory Rate 18 06/17/21 00:12 Respiratory Effort Non-Labored 06/17/21 00:23 Blood Pressure 160/99 H 06/17/21 00:12 Blood Pressure Position Sitting 06/17/21 00:12 Pulse Oximetry 96 06/17/21 00:12 Oxygen Delivery Method Room Air 06/17/21 00:12 Oxygen Flow Rate 0 06/17/21 00:12 Sign Out <Edwardo Ly MD - Last Filed: 06/17/21 06:13> Sign Out Data: Sign Out Comment: came in with anxiety and depression stating she didn't want to live anymore but also intoxicated, needs to see mental health when clinically sober Last updated by Edwardo Ly MD at 06/17/21 01:26 Sign Out Comment: Medically cleared. Clinically sober as of 8 AM. Voluntary and suicidal. Mental health seeking inpatient hospitalization for depression. Last updated by Rachell Alonzo DO at 06/17/21 15:57 Sign Out Comment: No issues on evening shift. She remains voluntary for psychiatric admission. Last updated by Khari Doll MD at 06/17/21 23:07 Sign Out Comment: voluntary for depression and SI Last updated by Edwardo Ly MD at 06/18/21 00:45
[2021-06-17 00:39] LABS: Abs Immature Grans 0.01 10^3/uL (0.0-0.06); Absolute Basophil Count 0.04 10^3/uL (0.0-0.2); Absolute Eosinophil Count 0.12 10^3/uL (0.0-0.7); Absolute Lymphocyte Count 2.44 10^3/uL (1.2-3.4); Absolute Monocyte Count 0.63 10^3/uL (0.1-0.8); Absolute Neutrophil Count 3.51 10^3/uL (1.2-6.7); Basophils % 0.6; Eosinophils % 1.8; HCT 36.6 % (36.0-46.0); HGB 12.3 g/dL (11.2-15.7); Immature Grans % 0.1; Lymphocytes % 36.1; MCH 30.6 pg (27.0-33.0); MCHC 33.6 % (32.0-36.0); MPV 9.6 fL (8.0-11.0); Monocytes % 9.3; Neutrophils % 52.1; Nucleated RBC 0 %; Platelet Count 229 10^3/uL (130-400); RBC 4.02 10^6/uL (3.93-5.22); RDW-SD 43.2 fL; WBC 6.75 10^3/uL (4.4-10.8)
[2021-06-17 00:50] LABS: Source Nasal/Nares
[2021-06-17 00:59] LABS: ALT 24 U/L (14-59); AST 22 U/L (15-37); Albumin 4.1 g/dL (3.4-5.0); Alkaline Phosphatase 79 U/L (46-116); Anion Gap 9.5 mmol/L (3-11); BUN 8 mg/dL (7-18); Bilirubin, Total 0.3 mg/dL (0.2-1.0); CO2 25.5 mmol/L (21.0-32.0); CREATININE 0.8 mg/dL (0.55-1.02); Calcium 8.6 mg/dL (8.5-10.1); Chloride 100 mmol/L (98-107); ETHANOL BLOOD 260.9 mg/dL (<3); Glucose 100 mg/dL (74-106); Magnesium 1.9 mg/dL (1.8-2.4); Potassium 3.8 mmol/L (3.5-5.1); Sodium 135 mmol/L (136-145); TSH (W/Ref FT4) 2.26 uIU/mL (0.36-3.74); Total Protein 7.5 g/dL (6.4-8.2)
[2021-06-17 01:14] LABS: Acetaminophen < 2 ug/mL (10-30); Salicylate < 2.8 mg/dL (<2.8)
[2021-06-17] MEDS: QUEtiapine 100 MG TAB PO ×2 (01:31→21:08)
[2021-06-17] MEDS: clonazePAM 1 MG TAB 2 MG PO ×2 (01:31→21:07)
[2021-06-17] MEDS: Melatonin 3 MG TAB 6 MG PO (01:31)
[2021-06-17 01:33] LABS: Bilirubin Negative (Negative); Blood Negative (Negative); Clarity Clear (Clear); Glucose Negative (Negative); Ketones Negative (Negative); Leukocyte Esterase Negative (Negative); Nitrite Negative (Negative); Urobilinogen 0.2 EU/dL (Up TO 0.2); pH 5.5 (5-8)
[2021-06-17 01:40] LABS: COVID-19 PCR Negative (Negative)
[2021-06-17 01:44] LABS: *AMPHETAMINES SCREEN URINE Negative (Negative); *BARBITURATES SCREEN URINE Negative (Negative); *BENZODIAZEPINES SCREEN URINE Negative (Negative); Cannabinoids THC Negative (Negative); Cocaine Screen,Urine Negative (Negative); METHADONE URINE SCREEN Negative (Negative); OPIATES URINE SCREEN Negative (Negative); Tricyclic Antidepressants Negative (Negative)
--- NOTE | 2021-06-17 07:34 | NUR.NOTE ---
PT asked to go to bathroom. This NEWS INTERN escorted PT to bathroom in ED. This NEWS INTERN noticed an unsteady gate. PT was walking very fast and swayed from side to side. This NEWS INTERN did hold onto the PTs arm to help keep steady to ensure she didn't fall. Nursing Note:
--- NOTE | 2021-06-17 09:21 | NUR.NOTE ---
Mental health in room. Nursing Note:
[2021-06-17] MEDS: Famotidine 20 MG TAB PO (10:39)
--- NOTE | 2021-06-17 11:36 | PDOC.MHCN_ITS ---
Date of service: 06/17/21 Time of Service: 10:45 Mental Health Crisis Note Presenting Issue How did you arrive at the ED and why did you come: Client arrived to ED via self due to intoxication as well as suicidal ideations with intent and plan to overdose Precipitating Factors Client edorsed SI but no HI during this assessment. Disposition BEHAVIOR: Client presented as tearful, overwhelmed, hopeless and helpless and struggled to put her thoughts together. However, client was very engaging and was eager to get help and treatment. EYE CONTACT: Client maintained minimal eye contact during this assessment MOOD: Client presented with depressed, hopeless and helpless mood AFFECT: Client's affect was congruent with her presented mood. APPETITE: Client reported she has been purposely fasting so she can loose weight and that she considers herself fat. Client also chastised herself for snacking and stated she eats only one proper meal a day in the afternoon. SLEEP(trouble falling/staying asleep: Client reported she sleep well when she drinks but states most nights she has difficulty staying asleep. 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 Plan Client is agreeable to seeking in-patient psychiatric treatment. Client is currently on voluntary status and will remain at [facility] till she is placed. Client will need to be reassessed if and when she decides to discharge before she is placed for treatment. Referrals sent to , [facility], [facility] [place] and . There are no beds available at this time in any of the facility. Referrals are pending review as well as bed availability. Client has also been connected to a assistant boys track coach through [facility]. Signature Clinician's Name/Title: Dione Mejias / DG Clinician, [facility].
[2021-06-17] MEDS: Cholestyramine/Aspartame PKT 1 EACH PO (14:09)
--- NOTE | 2021-06-17 15:54 | CMSP_ITS ---
- If Service Date Differs Date of service: 06/17/21 Time of Service: 15:54 Care Management Safety Plan Status: Voluntary - Reason for Wait Reason for Wait: Inpatient Admission VOLUNTARY FOR INPATIENT PSYCHIATRIC STABILIZATION. Patient is appropriate in all interactions since arriving at [facility]; Pt has demonstrated appropriate coping and communication skills, has articulated his or her needs and concerns and is fully engaged during staff interactions. A huddle is held at approximately 3:15 pm with Adriana Segura, nursing supervisor solder making, Mervat, nursing supervisor solder making, VIRGINIA Guzman, Yanet, charge nurse, and SHANNON Boo, in attendance. Safety plan has been established with patient, and care team, to adhere to patient goals, identify restrictions based on behavioral status, address nutrition, and determine allowed personal belongings, tools for hygiene and personal care. Determine level of activity including ambulation, level of supervision, visitors, and determine privileges based on behaviors and level of engagement by pt. SAFETY PLAN: 1. Will remain on suicide precautions. In Paper Clothes 2. Will remain in room under direct supervision of one-on-one staff at all times provided by CPSO, DINO, COMMUNICATIONS ELECTRICIAN SUPERVISOR film inspector. 3. May have paper cups, plates, finger foods as well as a cardboard spoon with which to eat meals. 4. Follow [facility] Management of the Admitted Behavioral Health Patient policy. 5. Personal care: Shower with supervision and at RN discretion. 6. Personal belongings: allowed to have her wig. 7. Visitors: Per [facility] policy and at RN discretion. 8. Activities: Coloring book, crayons, music tablet, television if available, and other activities at RN discretion. 9. Bathroom privileges with escort in the ED; may use bathroom available in room without restriction on Med/Surg. 10. Phone: Phone use at RN discretion. 11. Due to VOLUNTARY status, if patient wishes to leave [facility], staff will contact [facility] Crisis Screener ([phone]) and On-Call Second Hand Paper Machine ([phone]) as soon as possible. In the event of elopement, notify [facility] Police ([phone]). Patient is currently voluntarily at [facility] and seeking inpatient admission when a bed becomes available. [facility] Frontline Die Forger will continue seeking placement. Please contact the Reel Assembler Second Hand Paper Machine ([phone]) and [facility] Die Forger ([phone]) for any needed changes in the Safety Plan. Safety plan has been provided to interdepartmental care team.
--- NOTE | 2021-06-17 15:54 | PDOC.CMSAFED ---
- If Service Date Differs Date of service: 06/17/21 Time of Service: 15:54 Care Management Safety Plan Status: Voluntary - Reason for Wait Reason for Wait: Inpatient Admission VOLUNTARY FOR INPATIENT PSYCHIATRIC STABILIZATION. Patient is appropriate in all interactions since arriving at [facility]; Pt has demonstrated appropriate coping and communication skills, has articulated his or her needs and concerns and is fully engaged during staff interactions. A huddle is held at approximately 3:15 pm with Adriana Segura, nursing show operations supervisor, Mervat, nursing show operations supervisor, VIRGINIA Guzman, Yanet, charge nurse, and SHANNON Boo, in attendance. Safety plan has been established with patient, and care team, to adhere to patient goals, identify restrictions based on behavioral status, address nutrition, and determine allowed personal belongings, tools for hygiene and personal care. Determine level of activity including ambulation, level of supervision, visitors, and determine privileges based on behaviors and level of engagement by pt. SAFETY PLAN: 1. Will remain on suicide precautions. In Paper Clothes 2. Will remain in room under direct supervision of one-on-one staff at all times provided by CPSO, DION, HAND STAMPER acetylene torch solderer. 3. May have paper cups, plates, finger foods as well as a cardboard spoon with which to eat meals. 4. Follow [facility] Management of the Admitted Behavioral Health Patient policy. 5. Personal care: Shower with supervision and at RN discretion. 6. Personal belongings: allowed to have her wig. 7. Visitors: Per [facility] policy and at RN discretion. 8. Activities: Coloring book, crayons, music tablet, television if available, and other activities at RN discretion. 9. Bathroom privileges with escort in the ED; may use bathroom available in room without restriction on Med/Surg. 10. Phone: Phone use at RN discretion. 11. Due to VOLUNTARY status, if patient wishes to leave [facility], staff will contact [facility] Crisis Screener ([phone]) and On-Call Unemployment Examiner ([phone]) as soon as possible. In the event of elopement, notify [facility] Police ([phone]). Patient is currently voluntarily at [facility] and seeking inpatient admission when a bed becomes available. [facility] Frontline Natural Gas Basis Trader will continue seeking placement. Please contact the Cat Skinner Unemployment Examiner ([phone]) and [facility] Natural Gas Basis Trader ([phone]) for any needed changes in the Safety Plan. Safety plan has been provided to interdepartmental care team.
--- NOTE | 2021-06-17 16:02 | PDOC.ERCMPRO ---
- If Service Date Differs Date of service: 06/17/21 Time of Service: 16:02 Care Management Progress Note S/O: Sandra is laying in bed when CM comes to meet with her. She is pleasant and easily engages in conversation. Her mood is depressed and affect is flat. She shares that she has been depressed for way too long. When CM inquires if she has any hobbies and offers activities, she states she used to enjoy painting coasters and rocks, but lost interest in doing those things a long time ago. Sandra asks for food, then quickly says never mind. I don't want to be a bother. CM explains to her that we are here to care for patients and she is one of our patients, so she is not a bother. CM will continue to follow. A: Sandra remains at [facility] awaiting a voluntary psychiatric placement. P: Referrals are faxed to [facility], [facility], [facility], and [facility] for review. Sandra will remain at [facility] while [facility] continues to seek a voluntary placement for her. CM will continue to follow. - Status Status: Voluntary - Reason for Wait Reason for Wait: Inpatient Admission
[2021-06-17] MEDS: Omeprazole 20 MG CAPCR PO (21:07)
[2021-06-17] MEDS: Melatonin 3 MG TAB PO (21:10)
--- NOTE | 2021-06-18 00:43 | W.ED.GENAD ---
Discharge Plan Disposition Patient Disposition: OTHER Condition: Stable Discharge Details Clinical Impression: Major depression, Alcohol intoxication Primary Care Provider: Mario Dalton ED Provider: Rachell Alonzo Home Meds and New Rx's Prescriptions: Continued clonazepam 1 mg Tablet 2 mg PO HS RF: 0 melatonin 3 mg Tablet 6 mg PO DAILY RF: 0 quetiapine [Seroquel] 100 mg Tablet 100 mg PO HS RF: 0 famotidine 20 mg tablet 20 mg PO DAILY RF: 0 magnesium oxide 400 mg (241.3 mg magnesium) tablet 400 mg PO DAILY RF: 0 fluvoxamine 25 mg tablet 25 mg PO BID RF: 0 omeprazole 20 mg capsule,delayed release(DR/EC) 20 mg PO DAILY RF: 0 albuterol sulfate 90 mcg/actuation HFA aerosol inhaler 90 mcg INHALATION PRN PRNRF: 0 cholestyramine (with sugar) 4 gram powder 4 pwd PO DAILY RF: 0 budesonide-formoterol [Symbicort] 160-4.5 mcg/actuation HFA aerosol inhaler INHALATION RF: 0 potassium chloride 20 mEq tablet extended release 20 meq PO DAILY RF: 0 Discharge Instructions Instructions: Depression (ED), Alcohol Intoxication (ED) Additional Instructions: Go directly to the care bed for continued monitoring with [facility]. Take all of your regular medications as directed. Return immediately to the emergency department if you develop any worsening or new concerning symptoms. Discharge Data Discharge Physician: Rachell Alonzo Medical Decision Making <Edwardo Ly MD - Last Filed: 06/18/21 00:45> pt remains stable and calm awaiting voluntary psych placement for SI. No complaints at present other than feeling depressed, awaiting placement. <Rachell Alonzo DO - Last Filed: 06/18/21 14:14> Medical Records Medical records reviewed: Yes I reviewed the patient's medical records. HPI <Edwardo Ly MD - Last Filed: 06/18/21 00:45> General Mode of arrival: ambulatory. Date/Time Provider Initiated Documentation: 06/17/21 00:12. Limitations to Documentation: no limitations. Information obtained by: patient. History of Present Illness No relieving factors improve symptom(s), Patient notes denies cough, fever/chills and shortness of breath. Related Data Home Medications Medication Instructions Recorded Confirmed clonazepam 2 mg PO HS 08/13/19 06/18/21 melatonin 6 mg PO DAILY 08/13/19 06/17/21 quetiapine [Seroquel] 100 mg PO HS 08/13/19 06/18/21 albuterol sulfate 90 mcg INHALATION PRN PRN 06/17/21 06/17/21 budesonide-formoterol [Symbicort] INHALATION 06/17/21 06/17/21 cholestyramine (with sugar) 4 pwd PO DAILY 06/17/21 06/17/21 famotidine 20 mg PO DAILY 06/17/21 06/17/21 fluvoxamine 25 mg PO BID 06/17/21 06/17/21 magnesium oxide 400 mg PO DAILY 06/17/21 06/17/21 omeprazole 20 mg PO DAILY 06/17/21 06/17/21 potassium chloride 20 meq PO DAILY 06/17/21 06/17/21 Allergies Allergy/AdvReac Type Severity Reaction Status Date / Time levofloxacin [From Levaquin] Allergy Intermediate Swelling/Ed Unverified 06/17/21 00:18 annalisa lorazepam [From Ativan] AdvReac Intermediate Other (See Unverified 06/17/21 00:18 Comment) trazodone AdvReac Intermediate Other (See Unverified 06/17/21 00:18 Comment) General Stated Complaint: PsychEval DAIN: 2 PFSH <Edwardo Ly MD - Last Filed: 06/18/21 00:45> Medical History (Updated 06/18/21 @ 13:47 by Deloris Trevizo NP) Anxiety Depression Surgical History History of cholecystectomy History of hysterectomy Social History Smoking/Tobacco Use Status: Former Tobacco Use Smoking risk assessment performed?: Yes Alcohol Intake: current Alcohol Intake frequency: 0-2 drinks per day Alcohol type: wine Substance use type: does not use Details: reports drinking wine today; unknown amount Current gender identity: female Do you feel safe at home: Yes Do you feel safe in your relationship?: Yes Course <Edwardo Ly MD - Last Filed: 06/18/21 00:45> Vital Signs Vital signs: Vital Signs Temperature 36.2 C L 06/17/21 00:12 Pulse 88 06/17/21 00:12 Respiratory Rate 18 06/17/21 00:12 Blood Pressure 160/99 H 06/17/21 00:12 Pulse Oximetry 96 06/17/21 00:12 Temperature 36.2 C L 06/17/21 00:12 Temperature Source Temporal Artery Scan 06/17/21 00:12 Pulse 88 06/17/21 00:12 Respiratory Rate 18 06/17/21 00:12 Respiratory Effort Non-Labored 06/17/21 02:30 Respiratory Depth Normal 06/17/21 02:30 Respiratory Pattern Normal 06/17/21 02:30 Blood Pressure 160/99 H 06/17/21 00:12 Blood Pressure Position Sitting 06/17/21 00:12 Pulse Oximetry 96 06/17/21 00:12 Oxygen Delivery Method Room Air 06/17/21 02:30 Oxygen Flow Rate 0 06/17/21 02:30 Pain Level 0 06/17/21 02:30 Lab/Test Results Lab/Test Results: Laboratory Tests Range/Units 06/17/21 06/17/21 06/17/21 00:30 00:30 00:43 WBC (4.4-10.8) 10^3/uL 6.75 RBC (3.93-5.22) 10^6/uL 4.02 Hgb (11.2-15.7) g/dL 12.3 Hct (36.0-46.0) % 36.6 MCV (80-95) fL 91.0 MCH (27.0-33.0) pg 30.6 MCHC (32.0-36.0) % 33.6 RDW (11.7-14.6) % 13.0 Plt Count (130-400) 10^3/uL 229 MPV (8.0-11.0) fL 9.6 Immature Gran % 0.1 Neutrophils % 52.1 Lymphocytes % 36.1 Monocytes % 9.3 Eosinophils % 1.8 Basophils % 0.6 Nucleated RBC % % 0 Absolute Neutrophils (1.2-6.7) 10^3/uL 3.51 Absolute Lymphocytes (1.2-3.4) 10^3/uL 2.44 Absolute Monocytes (0.1-0.8) 10^3/uL 0.63 Absolute Eosinophils (0.0-0.7) 10^3/uL 0.12 Absolute Basophils (0.0-0.2) 10^3/uL 0.04 Sodium (136-145) mmol/L 135 L Potassium (3.5-5.1) mmol/L 3.8 Chloride (98-107) mmol/L 100 Carbon Dioxide (21.0-32.0) mmol/L 25.5 Anion Gap (3-11) mmol/L 9.5 BUN (7-18) mg/dL 8 Creatinine (0.55-1.02) mg/dL 0.8 Estimated GFR/1.73 m2 (mL/min/1.73m2) >= 60.00 Glucose (74-106) mg/dL 100 Calcium (8.5-10.1) mg/dL 8.6 Magnesium (1.8-2.4) mg/dL 1.9 Total Bilirubin (0.2-1.0) mg/dL 0.3 AST (15-37) U/L 22 ALT (14-59) U/L 24 Alkaline Phosphatase (46-116) U/L 79 Total Protein (6.4-8.2) g/dL 7.5 Albumin (3.4-5.0) g/dL 4.1 TSH (0.36-3.74) uIU/mL 2.26 Urine Color (Yellow) Urine Clarity (Clear) Urine pH (5-8) Ur Specific [place] (1.005-1.025) Urine Protein (Negative) mg/dL Urine Ketones (Negative) mg/dL Urine Blood (Negative) Urine Nitrite (Negative) Urine Bilirubin (Negative) Urine Urobilinogen (Up TO 0.2) EU/dL Ur Leukocyte Esterase (Negative) Urine Glucose (Negative) mg/dL Salicylates (<2.8) mg/dL < 2.8 Urine Opiates Screen (Negative) Urine Methadone Screen (Negative) Acetaminophen (10-30) ug/mL < 2 Ur Barbiturates Screen (Negative) Ur Tricyclics Screen (Negative) Ur Amphetamines Screen (Negative) U Benzodiazepines Scrn (Negative) Urine Cocaine Screen (Negative) Ur THC Screen (Negative) Ethyl Alcohol (<3) mg/dL 260.9 COVID-19 Source SARS-CoV-2 (PCR) (Negative) Range/Units 06/17/21 06/17/21 06/17/21 00:45 01:25 01:25 WBC (4.4-10.8) 10^3/uL RBC (3.93-5.22) 10^6/uL Hgb (11.2-15.7) g/dL Hct (36.0-46.0) % MCV (80-95) fL MCH (27.0-33.0) pg MCHC (32.0-36.0) % RDW (11.7-14.6) % Plt Count (130-400) 10^3/uL MPV (8.0-11.0) fL Immature Gran % Neutrophils % Lymphocytes % Monocytes % Eosinophils % Basophils % Nucleated RBC % % Absolute Neutrophils (1.2-6.7) 10^3/uL Absolute Lymphocytes (1.2-3.4) 10^3/uL Absolute Monocytes (0.1-0.8) 10^3/uL Absolute Eosinophils (0.0-0.7) 10^3/uL Absolute Basophils (0.0-0.2) 10^3/uL Sodium (136-145) mmol/L Potassium (3.5-5.1) mmol/L Chloride (98-107) mmol/L Carbon Dioxide (21.0-32.0) mmol/L Anion Gap (3-11) mmol/L BUN (7-18) mg/dL Creatinine (0.55-1.02) mg/dL Estimated GFR/1.73 m2 (mL/min/1.73m2) Glucose (74-106) mg/dL Calcium (8.5-10.1) mg/dL Magnesium (1.8-2.4) mg/dL Total Bilirubin (0.2-1.0) mg/dL AST (15-37) U/L ALT (14-59) U/L Alkaline Phosphatase (46-116) U/L Total Protein (6.4-8.2) g/dL Albumin (3.4-5.0) g/dL TSH (0.36-3.74) uIU/mL Urine Color (Yellow) Yellow Urine Clarity (Clear) Clear Urine pH (5-8) 5.5 Ur Specific [place] (1.005-1.025) 1.010 Urine Protein (Negative) mg/dL Negative Urine Ketones (Negative) mg/dL Negative Urine Blood (Negative) Negative Urine Nitrite (Negative) Negative Urine Bilirubin (Negative) Negative Urine Urobilinogen (Up TO 0.2) EU/dL 0.2 Ur Leukocyte Esterase (Negative) Negative Urine Glucose (Negative) mg/dL Negative Salicylates (<2.8) mg/dL Urine Opiates Screen (Negative) Negative Urine Methadone Screen (Negative) Negative Acetaminophen (10-30) ug/mL Ur Barbiturates Screen (Negative) Negative Ur Tricyclics Screen (Negative) Negative Ur Amphetamines Screen (Negative) Negative U Benzodiazepines Scrn (Negative) Negative Urine Cocaine Screen (Negative) Negative Ur THC Screen (Negative) Negative Ethyl Alcohol (<3) mg/dL COVID-19 Source Nasal/Nares SARS-CoV-2 (PCR) (Negative) Negative Sign Out <Edwardo Ly MD - Last Filed: 06/18/21 00:45> Sign Out Data: Sign Out Comment: came in with anxiety and depression stating she didn't want to live anymore but also intoxicated, needs to see mental health when clinically sober Last updated by Edwardo Ly MD at 06/17/21 01:26 Sign Out Comment: Medically cleared. Clinically sober as of 8 AM. Voluntary and suicidal. Mental health seeking inpatient hospitalization for depression. Last updated by Rachell Alonzo DO at 06/17/21 15:57 Sign Out Comment: No issues on evening shift. She remains voluntary for psychiatric admission. Last updated by Khari Doll MD at 06/17/21 23:07 Sign Out Comment: voluntary for depression and SI Last updated by Edwardo Ly MD at 06/18/21 00:45
[2021-06-18] MEDS: Omeprazole 20 MG CAPCR PO (07:32)
[2021-06-18 09:10] VITALS: BP 147/80; PULSE 85; RESP 18; TEMP 36.6; O2SAT 97
[2021-06-18] MEDS: Cholestyramine/Aspartame PKT 1 EACH PO (10:05)
--- NOTE | 2021-06-18 10:29 | PDOC.MHCN ---
Date of service: 06/18/21 Time of Service: 10:29 Mental Health Crisis Note Presenting Issue How did you arrive at the ED and why did you come: Pt arrived on 06.17.2021 with SI, Plan and intent. Precipitating Factors Pt is still endorsing SI she is denying HI. She is showing no signs of delusions. Disposition BEHAVIOR: Pt is emotional but cooperative and engaged. She agrees to a referral to the CARE Bed if available. EYE CONTACT: Eye contact is good. MOOD: Mood is sad and angry and then excited. All emotions are appropriate to the conversations being held. AFFECT: Pt's affect is congruent with mood. APPETITE: Pt believes she is fat and consequently she is not eating as much as she could however, is eating. SLEEP(trouble falling/staying asleep: Pt reported sleep was fine until that woman came in screaming for hours. Plan A referral was sent to [facility] CARE Bed and is being reviewed now. She has requested to not go to [facility] if we are still seeking hospital level of care because her experience there the last time was not favorable to her. She is still voluntarily seeking intensive short term treatment however. Signature Clinician's Name/Title: Sandra Santamaria MS, [facility] Emergency Services Clinician, [facility]
--- NOTE | 2021-06-18 13:00 | CMSP_ITS ---
- If Service Date Differs Date of service: 06/18/21 Time of Service: 13:00 Care Management Safety Plan Status: Voluntary - Reason for Wait Reason for Wait: Community Placement ([facility] Care Bed) VOLUNTARY FOR INPATIENT PSYCHIATRIC STABILIZATION. Patient is appropriate in all interactions since arriving at [facility]; Pt has demonstrated appropriate coping and communication skills, has articulated his or her needs and concerns and is fully engaged during staff interactions. Safety plan has been established with patient, and care team, to adhere to patient goals, identify restrictions based on behavioral status, address nutrition, and determine allowed personal belongings, tools for hygiene and personal care. Determine level of activity including ambulation, level of supervision, visitors, and determine privileges based on behaviors and level of engagement by pt. SAFETY PLAN: 1. Will remain on suicide precautions. In Paper Clothes 2. Will remain in room under direct supervision of one-on-one staff at all times provided by CPSO, DION, SEMICONDUCTOR PACKAGE SYMBOL STAMPER production team advisor. 3. May have paper cups, plates, finger foods as well as a cardboard spoon with which to eat meals. 4. Follow [facility] Management of the Admitted Behavioral Health Patient policy. 5. Personal care: Shower with supervision and at RN discretion. 6. Personal belongings: allowed to have her wig. 7. Visitors: Per [facility] policy and at RN discretion. 8. Activities: Coloring book, crayons, search word puzzle book, music tablet, television if available, and other activities at RN discretion. 9. Bathroom privileges with escort in the ED; may use bathroom available in room without restriction on Med/Surg. 10. Phone: Phone use at RN discretion. 11. Due to VOLUNTARY status, if patient wishes to leave [facility], staff will contact [facility] Crisis Screener ([phone]) and On-Call Quality Lab Technician ([phone]) as soon as possible. In the event of elopement, notify [facility] Police ([phone]). Patient is currently voluntarily at [facility] and seeking inpatient admission when a bed becomes available. [facility] Frontline Design Draftsman will continue seeking placement. Please contact the Men'S [employer] Boys[employer]othing Salesperson Quality Lab Technician ([phone]) and [facility] Design Draftsman ([phone]) for any needed changes in the Safety Plan. Safety plan has been provided to interdepartmental care team.
--- NOTE | 2021-06-18 13:00 | PDOC.CMSAFED ---
- If Service Date Differs Date of service: 06/18/21 Time of Service: 13:00 Care Management Safety Plan Status: Voluntary - Reason for Wait Reason for Wait: Community Placement ([facility] Care Bed) VOLUNTARY FOR INPATIENT PSYCHIATRIC STABILIZATION. Patient is appropriate in all interactions since arriving at [facility]; Pt has demonstrated appropriate coping and communication skills, has articulated his or her needs and concerns and is fully engaged during staff interactions. Safety plan has been established with patient, and care team, to adhere to patient goals, identify restrictions based on behavioral status, address nutrition, and determine allowed personal belongings, tools for hygiene and personal care. Determine level of activity including ambulation, level of supervision, visitors, and determine privileges based on behaviors and level of engagement by pt. SAFETY PLAN: 1. Will remain on suicide precautions. In Paper Clothes 2. Will remain in room under direct supervision of one-on-one staff at all times provided by CPSO, DION, JALOUSIE INSTALLER motorcycle service technician. 3. May have paper cups, plates, finger foods as well as a cardboard spoon with which to eat meals. 4. Follow [facility] Management of the Admitted Behavioral Health Patient policy. 5. Personal care: Shower with supervision and at RN discretion. 6. Personal belongings: allowed to have her wig. 7. Visitors: Per [facility] policy and at RN discretion. 8. Activities: Coloring book, crayons, search word puzzle book, music tablet, television if available, and other activities at RN discretion. 9. Bathroom privileges with escort in the ED; may use bathroom available in room without restriction on Med/Surg. 10. Phone: Phone use at RN discretion. 11. Due to VOLUNTARY status, if patient wishes to leave [facility], staff will contact [facility] Crisis Screener ([phone]) and On-Call Assembler For Puller Over Hand ([phone]) as soon as possible. In the event of elopement, notify [facility] Police ([phone]). Patient is currently voluntarily at [facility] and seeking inpatient admission when a bed becomes available. [facility] Frontline Inspector Pawnshop Detail will continue seeking placement. Please contact the Substance Addiction Coordinator Assembler For Puller Over Hand ([phone]) and [facility] Inspector Pawnshop Detail ([phone]) for any needed changes in the Safety Plan. Safety plan has been provided to interdepartmental care team.
--- NOTE | 2021-06-18 13:02 | PDOC.ERCMPRO ---
- If Service Date Differs Date of service: 06/18/21 Time of Service: 13:02 Care Management Progress Note S/O: Sandra's mood and affect are brighter today. She is more talkative and she appropriately interacts with CM and the CPSO. She continues to report suicidal ideation but is clear that she does not want to . She requests a word search puzzle and some crayons, which provides her with. Sandra meets with Sandra of [facility] this morning for an assessment. A referral is subsequently made to the [facility] Care Bed for review. A: Sandra is a 65 year old female who remains at [facility] voluntarily while awaiting a psychiatric placement. P: Sandra is accepted at the Care Bed. Care Bed staff are providing transportation. Sandra will follow up with her community providers and discharge plan of care as directed. - Status Status: Voluntary - Reason for Wait Reason for Wait: Community Placement ([facility] Care [facility] [place])
--- NOTE | 2021-06-18 13:42 | W.PM.HP.N ---
Date of service: 06/18/21 Time of Service: 13:42 Assessment and Plan Assessment and plan (1) Alcohol intoxication: Status: Resolved Assessment and plan: no sign of withdrawal. consider outpatient rehabilitation/recover quality assurance coach. (2) Major depression: Status: Chronic Assessment and plan: outpatient follow up. continue home medication (3) Suicidal ideation: Status: Resolved Assessment and plan: mental health following. she is no longer suicidal while sober. she will be discharged to care bed when available. case management following. discussed with DR Aragon History of Present Illness History of Present Illness Chief Complaint: alcohol intoxication with suicidal ideation Narrative: this is a 65 year old female who presented to the ED for suicidal ideation. medical screening confirmed intoxication with LUIZA of 260. the rest of her work up was unremarkable. She was held in the ED until she was sober and cleared medically for mental health consultation. she is no longer actively suicidal and will be discharged to a care bed which will be available tomorrow. She will remain here until it opens up and will be held on med/surg in our psychiatric holding area. hospitalist services will resume her care until she is discharged. Review of Systems All systems reviewed & are unremarkable except as noted in HPI and below PFSH Medical History (Updated 06/18/21 @ 13:47 by Deloris Trevizo NP) Anxiety Depression Surgical History History of cholecystectomy History of hysterectomy Social History Smoking/Tobacco Use Status: Former Tobacco Use Smoking risk assessment performed?: Yes Alcohol Intake: current Alcohol Intake frequency: 0-2 drinks per day Alcohol type: wine Substance use type: does not use Details: reports drinking wine today; unknown amount Current gender identity: female Do you feel safe at home: Yes Do you feel safe in your relationship?: Yes Meds Allergies and Home Medications Allergies Allergy/AdvReac Type Severity Reaction Status Date / Time levofloxacin [From Levaquin] Allergy Intermediate Swelling/Ed Unverified 06/17/21 00:18 annalisa lorazepam [From Ativan] AdvReac Intermediate Other (See Unverified 06/17/21 00:18 Comment) trazodone AdvReac Intermediate Other (See Unverified 06/17/21 00:18 Comment) Home Medications Medication Instructions Recorded Confirmed Type clonazepam 2 mg PO HS 08/13/19 06/18/21 History melatonin 6 mg PO DAILY 08/13/19 06/17/21 History quetiapine [Seroquel] 100 mg PO HS 08/13/19 06/18/21 History albuterol sulfate 90 mcg INHALATION PRN PRN 06/17/21 06/17/21 History budesonide-formoterol [Symbicort] INHALATION 06/17/21 06/17/21 History cholestyramine (with sugar) 4 pwd PO DAILY 06/17/21 06/17/21 History famotidine 20 mg PO DAILY 06/17/21 06/17/21 History fluvoxamine 25 mg PO BID 06/17/21 06/17/21 History magnesium oxide 400 mg PO DAILY 06/17/21 06/17/21 History omeprazole 20 mg PO DAILY 06/17/21 06/17/21 History potassium chloride 20 meq PO DAILY 06/17/21 06/17/21 History Exam Const General: anxious Orientation: alert HENTX Head: normal to inspection Ears: external ears normal General nose exam: external nose normal Mouth: moist mucous membranes Eyes General: appearance normal, both eyes and all related structures Neck Neck: normal visual inspection Resp Effort & Inspection: normal respiratory effort and able to speak in complete sentences Cardio Rate: regular rate Skin General skin exam: no rashes or lesions noted Neuro General: patient alert and patient oriented x3 Extrem General: normal to inspection Psych Speech and Movement: restless Affect: labile affect Results Labs Result diagrams: 06/17/21 00:30 06/17/21 00:30 Last Vital Signs Temp 36.6 C 06/18/21 09:10 Pulse 85 06/18/21 09:10 Resp 18 06/18/21 09:10 BP 147/80 H 06/18/21 09:10 Pulse Ox 97 06/18/21 09:10
== END 2021-06-18 14:39 | disposition other institution (70) ==
PROVIDERS: Emergency Medicine; Emergency Provider Physician Assistant; PCP Family Medicine
DX: F41.8 Other specified anxiety disorders (principal); Y90.8 Blood alcohol level of 240 mg/100 ml or more; Z03.818 Encounter for observation for suspected exposure to other biological agents ruled out; R45.1 Restlessness and agitation; F10.220 Alcohol dependence with intoxication, uncomplicated; F10.20 Alcohol dependence, uncomplicated
CPT/HCPCS: 80053; 80307; 87635; 99285; 80320; 80329; 81003; 83735; 84443; 85025; 99283

== ENCOUNTER 2024-02-15 18:47 | Emergency (ER) | payer MEDICARE, MEDICAID, SELFPAY ==
[2024-02-15] VITALS (71 sets, daily range): BP systolic 121–140; BP diastolic 73–98; PULSE 67–85; RESP 13–37; TEMP 36.7; O2SAT 87–100
--- NOTE | 2024-02-15 18:45 | RT.EKG_ITS ---
APPROVED REPORT Exam: Resting ECG Reason for Exam: tingling, abnormal labs Patient Location: E HR:77 bpm ECG Measurements Heart Rate 77 AXIS WY 195 P 66 QRSd 110 QRS 70 QT 381 T 52 QTc 433 Conclusion Sinus rhythm...normal P axis, V-rate 60- 99 Low voltage, extremity leads...all extremity leads <0.5mV There are no significant changes compared to prior EKG performed on 12/03/2020 at 10:51.
[2024-02-15 20:23] LABS: Abs Immature Grans 0.02 10^3/uL (0.0-0.06); Absolute Basophil Count 0.01 10^3/uL (0.0-0.2); Absolute Lymphocyte Count 2.13 10^3/uL (1.2-3.4); Absolute Monocyte Count 0.73 10^3/uL (0.1-0.8); Absolute Neutrophil Count 2.98 10^3/uL (1.2-6.7); Basophils % 0.2; HCT 34.2 % (36.0-46.0); HGB 11.2 g/dL (11.2-15.7); Immature Grans % 0.3; Lymphocytes % 36.3; MCH 29.3 pg (27.0-33.0); MCHC 32.7 % (32.0-36.0); MCV 90 fL (80-95); MPV 9.5 fL (8.0-11.0); Monocytes % 12.4; Neutrophils % 50.8; Platelet Count 268 10^3/uL (130-400); RBC 3.82 10^6/uL (3.93-5.22); RDW 14.1 % (11.7-14.6); WBC 5.87 10^3/uL (4.4-10.8)
[2024-02-15 20:36] LABS: ALT 23 U/L (14-59); AST 16 U/L (15-37); Albumin 3.8 g/dL (3.4-5.0); Alkaline Phosphatase 87 U/L (46-116); BUN 13 mg/dL (7-18); Bilirubin, Total 0.3 mg/dL (0.2-1.0); CREATININE 0.9 mg/dL (0.55-1.02); Calcium 8.9 mg/dL (8.5-10.1); Chloride 101 mmol/L (98-107); Estimated GFR 69.64 (mL/min/1.73m2); Glucose 103 mg/dL (74-106); Magnesium 1.5 mg/dL (1.8-2.4); Sodium 139 mmol/L (136-145); Total Protein 7.4 g/dL (6.4-8.2)
--- NOTE | 2024-02-15 20:44 | ED.GENADUL_ITS ---
Discharge Plan Disposition Patient Disposition: Home Condition: Stable Discharge Details Clinical Impression: Hypomagnesemia Primary Care Provider: None,None ED Provider: Roger Bautista Home Meds and New Rx's Prescriptions: Continued clonazepam 1 mg Tablet 2 mg PO HS melatonin 3 mg Tablet 6 mg PO DAILY quetiapine [Seroquel] 100 mg Tablet 100 mg PO HS famotidine 20 mg tablet 20 mg PO DAILY Patient Comments: TAKE ONE TABLET BY MOUTH EVERY DAY fluvoxamine 25 mg tablet 25 mg PO BID Patient Comments: TAKE ONE TABLET BY MOUTH TWICE A DAY omeprazole 20 mg capsule,delayed release(DR/EC) 20 mg PO DAILY Patient Comments: TAKE ONE CAPSULE BY MOUTH TWICE A DAY albuterol sulfate 90 mcg/actuation HFA aerosol inhaler 90 mcg INHALATION PRN PRN Patient Comments: INHALE TWO PUFFS BY MOUTH EVERY 4 HOURS NEEDED cholestyramine (with sugar) 4 gram powder 4 pwd PO DAILY Patient Comments: TAKE 1 SCOOP BY MOUTH TWICE A DAY Discharge Instructions Instructions: Hypomagnesemia (ED) Additional Instructions: You were seen in the emergency department for your weakness and mild tingling likely linked to your hypomagnesemia which has been an ongoing problem for you due to chronic diarrhea. Your level yesterday was 1.3 at [facility] when you arrived today it was 1.5 which is only mildly low. We did provide you with 2 g IV magnesium, as well as p.o. supplements. Please continue your p.o. supplements and need to diet rich in magnesium. Please return to this ED if you feel weak and feel like you may be low again otherwise please have your magnesium rechecked at your primary care physician via outpatient lab draw only say by the middle or end of next week. HPI General Date/Time Provider Initiated Documentation: 02/15/24 18:56 . HPI Narrative: 68 year-old female presents to ED today by POV/ambulating with a chief complaint of mild weakness, some tingling, outpatient magnesium level at [facility] yesterday 1.3 with onset chronically due to chronic diarrhea. Quality described as mild weakness, no radiation to palpitations, syncope, dizziness, endorses some tingling of tongue and fingers, fatigue. Severity is described as mild. Palliating factors include on oral magnesium supplements chronically. Provoking factors include nothing specific. Patient not anticoagulated. Related Data Home Medications Medication Instructions Recorded Confirmed clonazepam 1 mg tablet 2 mg PO HS 08/13/19 02/15/24 melatonin 3 mg tablet 6 mg PO DAILY 08/13/19 02/15/24 quetiapine 100 mg tablet (Seroquel) 100 mg PO HS 08/13/19 02/15/24 albuterol sulfate 90 mcg/actuation 90 mcg inhalation PRN PRN 06/17/21 02/15/24 aerosol inhaler cholestyramine (with sugar) 4 gram 4 pwd PO DAILY 06/17/21 02/15/24 oral powder famotidine 20 mg tablet 20 mg PO DAILY 06/17/21 02/15/24 fluvoxamine 25 mg tablet 25 mg PO BID 06/17/21 02/15/24 omeprazole 20 mg capsule,delayed 20 mg PO DAILY 06/17/21 02/15/24 release Allergies Allergy/AdvReac Type Severity Reaction Status Date / Time levofloxacin [From Levaquin] Allergy Intermediate Swelling/Ed Unverified 02/15/24 20:57 annalisa lorazepam [From Ativan] AdvReac Intermediate Other (See Unverified 02/15/24 20:57 Comment) trazodone AdvReac Intermediate Other (See Unverified 02/15/24 20:57 Comment) General Stated Complaint: GenMedical DAIN: 3 Review of Systems All systems reviewed & are unremarkable except as noted in HPI and below Exam Narrative Exam Narrative: GENERAL APPEARANCE: Well-nourished, non-toxic, awake and alert, atraumatic, no acute distress. SKIN: Warm, pink, dry, intact, without rashes/lesions/ulcerations. HEAD: Normocephalic, atraumatic, normal hair distribution for gender/age. EYES: Pupils PERRLA, EOMs intact without nystagmus, normal conjunctiva, no exudates on lids/lashes. ENT: Nares patent, no circumoral cyanosis, no facial swelling NECK: Supple, trachea midline, painless cervical ROM. LUNGS/CHEST: Non-labored respirations, normal A/P diameter, symmetrical expansion, no chest wall deformity HEART (CV/PV): Regular rate and rhythm without murmur, no peripheral edema, no JVD. ABDOMEN: Soft, non-distended, no guarding. MSK: Normal ROM, no swelling/deformity to bilateral UEs or LEs, moving all extremities without weakness, no cyanosis, spine midline without tenderness, normal curvature. NEURO: Mental Status AAOx4 - alert to person, place, time, events No facial droop, no forehead involvement. Motor: No focal weakness - strength 5/5 in bilateral UEs and LEs, proximal and distal, symmetric. Sensory: sensation intact to light touch globally. Gait normal: patient ambulated without ataxia into ED room. PSYCH: euthymic, cooperative, pleasant, appropriate speech Course Vital Signs Vital signs: Vital Signs Temperature 36.7 C 02/15/24 18:51 Pulse 85 02/15/24 18:51 Respiratory Rate 18 02/15/24 18:51 Blood Pressure 131/73 02/15/24 18:51 Pulse Oximetry 99 02/15/24 18:51 Temperature 36.7 C 02/15/24 18:51 Pulse 74 02/15/24 20:09 Respiratory Rate 16 02/15/24 20:09 Blood Pressure 121/79 02/15/24 20:09 Pulse Oximetry 97 02/15/24 20:09 Lab/Test Results Lab/Test Results: Laboratory Tests Range/Units 02/15/24 20:15 WBC (4.4-10.8) 10^3/uL 5.87 RBC (3.93-5.22) 10^6/uL 3.82 L Hgb (11.2-15.7) g/dL 11.2 Hct (36.0-46.0) % 34.2 L MCV (80-95) fL 90 MCH (27.0-33.0) pg 29.3 MCHC (32.0-36.0) % 32.7 RDW (11.7-14.6) % 14.1 Plt Count (130-400) 10^3/uL 268 MPV (8.0-11.0) fL 9.5 Immature Gran % 0.3 Neutrophils % 50.8 Lymphocytes % 36.3 Monocytes % 12.4 Eosinophils % 0.0 Basophils % 0.2 Nucleated RBC % (0.0-0.3) % 0.0 Absolute Neutrophils (1.2-6.7) 10^3/uL 2.98 Absolute Lymphocytes (1.2-3.4) 10^3/uL 2.13 Absolute Monocytes (0.1-0.8) 10^3/uL 0.73 Absolute Eosinophils (0.0-0.7) 10^3/uL 0.00 Absolute Basophils (0.0-0.2) 10^3/uL 0.01 Sodium (136-145) mmol/L 139 Potassium (3.5-5.1) mmol/L 4.0 Chloride (98-107) mmol/L 101 Carbon Dioxide (21.0-32.0) mmol/L 28.0 Anion Gap (3-11) mmol/L 10.0 BUN (7-18) mg/dL 13 Creatinine (0.55-1.02) mg/dL 0.9 Est GFR (CKD-EPI 2020) (mL/min/1.73m2) 69.64 Glucose (74-106) mg/dL 103 Calcium (8.5-10.1) mg/dL 8.9 Magnesium (1.8-2.4) mg/dL 1.5 L Total Bilirubin (0.2-1.0) mg/dL 0.3 AST (15-37) U/L 16 ALT (14-59) U/L 23 Alkaline Phosphatase (46-116) U/L 87 Total Protein (6.4-8.2) g/dL 7.4 Albumin (3.4-5.0) g/dL 3.8 Medical Decision Making This dictation utilizes [id number] dictation software and may contain unedited grammatical errors. 68 y/o F presents to ED today with a chief complaint of low magnesium level at outpatient lab draw yesterday at 1.3. Patient has had chronic diarrhea for quite some time and is on PO supplements for magnesium. Patient endorsed mild tongue tingling and fatigue. Patients' medical history: alcholism, chronic diarrhea. Family and social history: no ETOH the past 8 months, eating healthy diet. Pertinent exam findings / vital signs include benign cardiopulmonary status, neuro intact, benign abdomen, appears well-nourished. Differential / pathologies of concern include hypomagnesemia, GI losses, not cardiac arrhythmia. Diagnostic studies of: -EKG, CBC, CMP, magnesium. -CBC benign -CMP benign -Magnesium 1.5 improved from prior outpatient value -EKG without torsades, no QT prolongation Interventions of: -2 g IV magnesium and p.o. supplementation, patient felt much better and was comfortable with outpatient recheck. ED Course/Assessment/Plan: 68-year-old female with chronic diarrhea has chronic GI losses and low magnesium on p.o. supplementation, received an outpatient lab draw which showed a value of 1.3 and was urged to come to ED for critical low value, her value was 1.5 only mildly low on arrival here we did provide IV and p.o supplementation. Patient was comfortable with a recheck in a number of days that she felt much better after infusion. I suggest that she try and receive outpatient checks and outpatient infusions by PCP appointment to not have to return to ED as often.. Findings not consistent with torsades, arrhythmia, severe electrolyte derangement. Disposition of Hypomagnesemia. Patient verbalized understanding of the plan and return to ED criteria and engaged in shared decision making. Medical Records Medical records reviewed: Yes I reviewed the patient's medical records. Lab Data Lab results reviewed: Yes I reviewed the patient's lab results. Labs: Laboratory Tests Range/Units 02/15/24 20:15 WBC (4.4-10.8) 10^3/uL 5.87 RBC (3.93-5.22) 10^6/uL 3.82 L Hgb (11.2-15.7) g/dL 11.2 Hct (36.0-46.0) % 34.2 L MCV (80-95) fL 90 MCH (27.0-33.0) pg 29.3 MCHC (32.0-36.0) % 32.7 RDW (11.7-14.6) % 14.1 Plt Count (130-400) 10^3/uL 268 MPV (8.0-11.0) fL 9.5 Immature Gran % 0.3 Neutrophils % 50.8 Lymphocytes % 36.3 Monocytes % 12.4 Eosinophils % 0.0 Basophils % 0.2 Nucleated RBC % (0.0-0.3) % 0.0 Absolute Neutrophils (1.2-6.7) 10^3/uL 2.98 Absolute Lymphocytes (1.2-3.4) 10^3/uL 2.13 Absolute Monocytes (0.1-0.8) 10^3/uL 0.73 Absolute Eosinophils (0.0-0.7) 10^3/uL 0.00 Absolute Basophils (0.0-0.2) 10^3/uL 0.01 Sodium (136-145) mmol/L 139 Potassium (3.5-5.1) mmol/L 4.0 Chloride (98-107) mmol/L 101 Carbon Dioxide (21.0-32.0) mmol/L 28.0 Anion Gap (3-11) mmol/L 10.0 BUN (7-18) mg/dL 13 Creatinine (0.55-1.02) mg/dL 0.9 Est GFR (CKD-EPI 2020) (mL/min/1.73m2) 69.64 Glucose (74-106) mg/dL 103 Calcium (8.5-10.1) mg/dL 8.9 Magnesium (1.8-2.4) mg/dL 1.5 L Total Bilirubin (0.2-1.0) mg/dL 0.3 AST (15-37) U/L 16 ALT (14-59) U/L 23 Alkaline Phosphatase (46-116) U/L 87 Total Protein (6.4-8.2) g/dL 7.4 Albumin (3.4-5.0) g/dL 3.8 Quality:SDOH Health Related Social Needs: No Data to Display PFSH All Active Problems (Updated 02/15/24 @ 22:55 by CECILE Andrade) Hypomagnesemia (Acute) Major depression (Chronic) Pyuria, sterile (Acute) Anxiety (Chronic) Depression (Chronic) Surgical History History of hysterectomy History of cholecystectomy Social History Smoking/Tobacco Use Status: Former Tobacco Use Smoking risk assessment performed?: Yes Alcohol Intake: current Alcohol Intake frequency: 0-2 drinks per day Alcohol type: wine Substance use type: does not use Details: reports drinking wine today; unknown amount Current gender identity: female Do you feel safe at home: Yes Do you feel safe in your relationship?: Yes
[2024-02-15] MEDS: MAGNESIUM SULFATE 2 GM/50 ML BAG IVPB (20:52)
[2024-02-15] MEDS: Magnesium Oxide 400 MG TAB PO (20:52)
== END 2024-02-15 23:41 | disposition home or self-care (01) ==
PROVIDERS: Emergency Provider Physician Assistant
DX: E83.42 Hypomagnesemia (principal); R19.7 Diarrhea, unspecified; Z87.891 Personal history of nicotine dependence
CPT/HCPCS: 80053; 93005; 96365; 96366; 99284; 83735; 85025; 93010; J3475

== ENCOUNTER 2024-12-09 11:02 | Emergency (ER) | payer MEDICARE, MEDICAID, SELFPAY ==
[2024-12-09 11:49] LABS: Abs Immature Grans 0.01 10^3/uL (0.0-0.06); Absolute Basophil Count 0.01 10^3/uL (0.0-0.2); Absolute Eosinophil Count 0.01 10^3/uL (0.0-0.7); Absolute Lymphocyte Count 1.24 10^3/uL (1.2-3.4); Absolute Monocyte Count 0.62 10^3/uL (0.1-0.8); Absolute Neutrophil Count 3.07 10^3/uL (1.2-6.7); Basophils % 0.2 %; Eosinophils % 0.2 %; HGB 12.5 g/dL (11.2-15.7); Immature Grans % 0.2 %; MCH 29.2 pg (27.0-33.0); MCHC 32.9 % (32.0-36.0); MCV 89 fL (80-95); MPV 8.9 fL (8.0-11.0); Monocytes % 12.5 %; Neutrophils % 61.9 %; Platelet Count 289 10^3/uL (130-400); RBC 4.28 10^6/uL (3.93-5.22); RDW 13.7 % (11.7-14.6); RDW-SD 44.3 fL; WBC 4.96 10^3/uL (4.4-10.8)
--- NOTE | 2024-12-09 11:56 | ED.GENADUL_ITS ---
Discharge Plan Discharge Details Chief Complaint: PsychEval Clinical Impression: Depression Primary Care Provider: Unknown,Unknown ED Provider: Edwardo Ly Home Meds and New Rx's Prescriptions: No Action melatonin 3 mg Tablet 6 mg PO DAILY quetiapine [Seroquel] 100 mg Tablet 100 mg PO HS Patient Comments: LAST FILLED IN MAY FOR A 30 DAY SUPPLY -- DOUBTFUL SHE IS STILL SUPPOSED TO BE TAKING; [facility] 2/ desvenlafaxine 100 mg tablet extended release 24 hr 100 mg PO DAILY Patient Comments: TAKE ONE TABLET BY MOUTH EVERY DAY diazepam 10 mg tablet 10 mg PO HS Patient Comments: TAKE ONE TABLET BY MOUTH EVERY NIGHT AT BEDTIME hydroxyzine HCl 10 mg tablet 10 mg PO QID PRN Patient Comments: TAKE ONE TABLET BY MOUTH FOUR TIMES A DAY NEEDED Rx Instructions: TAKE 1 TABLET BY MOUTH 4 TIMES A DAY NEEDED lamotrigine 25 mg tablet 25 mg PO DAILY Patient Comments: TAKE ONE TABLET BY MOUTH EVERY DAY prazosin 1 mg capsule 1 mg PO HS Patient Comments: TAKE ONE CAPSULE BY MOUTH AT BEDTIME levothyroxine 25 mcg tablet 25 mcg PO DAILY Patient Comments: TAKE ONE TABLET BY MOUTH EVERY DAY famotidine 20 mg tablet 20 mg PO BID Patient Comments: TAKE ONE TABLET BY MOUTH twice a day albuterol sulfate 90 mcg/actuation HFA aerosol inhaler 90 mcg INHALATION PRN PRN Patient Comments: INHALE TWO PUFFS BY MOUTH EVERY 4 HOURS NEEDED cholestyramine (with sugar) 4 gram powder 4 pwd PO DAILY Patient Comments: TAKE 1 SCOOP BY MOUTH TWICE A DAY HPI General Mode of arrival: ambulatory . Date/Time Provider Initiated Documentation: 12/09/24 11:06 . Limitations to Documentation: no limitations . Information obtained by: patient . History of Present Illness 69 year old F presents to the emergency department with the chief complaint of depression, described as moderate, Patient started experiencing this month(s) (1) and it has been constant. No relieving factors improve symptom(s), No exacerbating factors reported . Patient notes no other symptoms.. Patient did receive the following treatments prior to arrival, none Related Data Home Medications ?Medication ?Instructions ?Recorded ?Confirmed melatonin 3 mg tablet 6 mg PO DAILY 08/13/19 12/09/24 quetiapine 100 mg tablet (Seroquel) 100 mg PO HS 08/13/19 12/09/24 albuterol sulfate 90 mcg/actuation 90 mcg inhalation PRN PRN 06/17/21 12/09/24 aerosol inhaler cholestyramine (with sugar) 4 gram 4 pwd PO DAILY 06/17/21 12/09/24 oral powder famotidine 20 mg tablet 20 mg PO BID 06/17/21 12/09/24 desvenlafaxine 100 mg 100 mg PO DAILY 12/09/24 12/09/24 tablet,extended release 24 hr diazepam 10 mg tablet 10 mg PO HS 12/09/24 12/09/24 hydroxyzine HCl 10 mg tablet 10 mg PO QID PRN 12/09/24 12/09/24 lamotrigine 25 mg tablet 25 mg PO DAILY 12/09/24 12/09/24 levothyroxine 25 mcg tablet 25 mcg PO DAILY 12/09/24 12/09/24 prazosin 1 mg capsule 1 mg PO HS 12/09/24 12/09/24 Allergies Allergy/AdvReac Type Severity Reaction Status Date / Time levofloxacin (From Levaquin) Allergy Intermediate Swelling/Ed Verified 12/09/24 11:24 annalisa lorazepam (From Ativan) AdvReac Intermediate Other (See Verified 12/09/24 11:24 Comment) trazodone AdvReac Intermediate Other (See Verified 12/09/24 11:24 Comment) General Stated Complaint: PsychEval DAIN: 2 Review of Systems All systems reviewed & are unremarkable except as noted in HPI and below Constitutional Constitutional: Denies chills, Denies fever(s) and Denies weakness Cardiovascular Cardiovascular: Denies chest pain and Denies dyspnea Respiratory Respiratory: Denies cough and Denies dyspnea Gastrointestinal Gastrointestinal: Denies abdominal pain, Denies nausea and Denies vomiting Genitourinary Genitourinary: Denies dysuria Neurologic Neurologic: Denies weakness Psychiatric Psychiatric: Reports depression Exam Const General: no acute distress Orientation: alert HENMT Head: normal to inspection Ears: external ears normal General nose exam: external nose normal Mouth: moist mucous membranes Eyes General: appearance normal, both eyes and all related structures Neck Neck: normal visual inspection Resp Effort & Inspection: normal respiratory effort and able to speak in complete sentences Cardio Rate: regular rate Skin General skin exam: no rashes or lesions noted Neuro General: patient alert and patient oriented x3 Extrem General: normal to inspection Psych Appearance: well kempt Mental Status: mental status grossly normal Speech and Movement: speech and movement normal Affect: sad Medical Decision Making 69-year-old female with a history of anxiety and depression and prior alcohol abuse who states he has been sober for 18 months comes in with worsening depression related to recent family member's . She has not SI but states that she think she needs to be inpatient for treatment of her depression as she believes she will go home and drink away the pain . She has normal gait on arrival, no focal neurological deficits. No neck stiffness. I doubt underlying medical etiology, will obtain screening labs and if these are negative at mental health evaluate Patient evaluated by NK chest and plan for seeking voluntary placement. Lab Data Lab results reviewed: Yes I reviewed the patient's lab results. Quality:SDOH Health Related Social Needs: No Data to Display PFSH All Active Problems (Updated 12/09/24 @ 15:15 by Edwardo Ly MD) Major depression (Chronic) Pyuria, sterile (Acute) Anxiety (Chronic) Depression (Chronic) Surgical History History of hysterectomy History of cholecystectomy Social History Smoking/Tobacco Use Status: Former Tobacco Use Smoking risk assessment performed?: Yes Alcohol Intake: current Alcohol Intake frequency: 0-2 drinks per day Alcohol type: wine Drug use: Current Sobriety Substance use type: does not use Housing: apartment Current gender identity: female Do you feel safe at home: Yes Do you feel safe in your relationship?: Yes
[2024-12-09 12:12] LABS: ALT 35 U/L (14-59); AST 21 U/L (15-37); Albumin 4.2 g/dL (3.4-5.0); Alkaline Phosphatase 102 U/L (46-116); Anion Gap 11.3 mmol/L (3-11); BUN 8 mg/dL (7-18); Bilirubin, Total 0.61 mg/dL (0.2-1.0); CO2 27.7 mmol/L (21.0-32.0); Chloride 102 mmol/L (98-107); ETHANOL BLOOD < 3.0 mg/dL (<10); Estimated GFR 60.98 (mL/min/1.73m2); Glucose 97 mg/dL (74-106); Magnesium 1.7 mg/dL (1.8-2.4); Potassium 3.2 mmol/L (3.5-5.1); Sodium 141 mmol/L (136-145)
[2024-12-09 12:24] LABS: TSH (W/Ref FT4) 0.75 uIU/mL (0.36-3.74)
[2024-12-09 13:15] LABS: Bilirubin Negative (Negative); Blood Negative (Negative); Clarity Clear (Clear); Glucose Negative (Negative); Ketones Negative (Negative); Leukocyte Esterase Negative (Negative); Nitrite Negative (Negative); Specific Gravity 1.025 (1.005-1.025); Urobilinogen 0.2 mg/dL (Up to 0.2)
[2024-12-09] MEDS: Potassium Chloride 20 MEQ TABCR 40 MEQ PO (13:20)
[2024-12-09 13:29] LABS: *AMPHETAMINES SCREEN URINE Negative (Negative); *BARBITURATES SCREEN URINE Negative (Negative); *BENZODIAZEPINES SCREEN URINE Positive (Negative); Cannabinoids THC Negative (Negative); Cocaine Screen,Urine Negative (Negative); METHADONE URINE SCREEN Negative (Negative); OPIATES URINE SCREEN Negative (Negative)
[2024-12-09 13:33] LABS: Tricyclic Antidepressants Negative (Negative)
--- NOTE | 2024-12-09 15:40 | W.EDPROG ---
Date of service: 01/09/25 Time of Service: 15:40 Medical Decision Making Care assumed from outgoing provider. Patient is a 69-year-old female currently pending voluntary inpatient psychiatric placement for depression. No issues during my shift Quality:SDOH Health Related Social Needs: No Data to Display Discharge Plan Discharge Details Chief Complaint: PsychEval Clinical Impression: Depression Primary Care Provider: Unknown,Unknown ED Provider: Lynn Ch Home Meds and New Rx's Prescriptions: No Action melatonin 3 mg Tablet 6 mg PO DAILY quetiapine [Seroquel] 100 mg Tablet 100 mg PO HS Patient Comments: LAST FILLED IN MAY FOR A 30 DAY SUPPLY -- DOUBTFUL SHE IS STILL SUPPOSED TO BE TAKING; [facility] 12/09 desvenlafaxine 100 mg tablet extended release 24 hr 100 mg PO DAILY Patient Comments: TAKE ONE TABLET BY MOUTH EVERY DAY diazepam 10 mg tablet 10 mg PO HS Patient Comments: TAKE ONE TABLET BY MOUTH EVERY NIGHT AT BEDTIME hydroxyzine HCl 10 mg tablet 10 mg PO QID PRN Patient Comments: TAKE ONE TABLET BY MOUTH FOUR TIMES A DAY NEEDED Rx Instructions: TAKE 1 TABLET BY MOUTH 4 TIMES A DAY NEEDED lamotrigine 25 mg tablet 25 mg PO DAILY Patient Comments: TAKE ONE TABLET BY MOUTH EVERY DAY prazosin 1 mg capsule 1 mg PO HS Patient Comments: TAKE ONE CAPSULE BY MOUTH AT BEDTIME levothyroxine 25 mcg tablet 25 mcg PO DAILY Patient Comments: TAKE ONE TABLET BY MOUTH EVERY DAY famotidine 20 mg tablet 20 mg PO BID Patient Comments: TAKE ONE TABLET BY MOUTH twice a day albuterol sulfate 90 mcg/actuation HFA aerosol inhaler 90 mcg INHALATION PRN PRN Patient Comments: INHALE TWO PUFFS BY MOUTH EVERY 4 HOURS NEEDED cholestyramine (with sugar) 4 gram powder 4 pwd PO DAILY Patient Comments: TAKE 1 SCOOP BY MOUTH TWICE A DAY
--- NOTE | 2024-12-09 17:54 | CMSP_ITS ---
Date of service: 12/09/24 Time of Service: 17:54 Care Management Safety Plan Status Status: Voluntary Reason for Wait Reason for Wait: Inpatient Admission Safety Plan Safety Plan: VOLUNTARY FOR INPATIENT PSYCHIATRIC STABILIZATION.? Patient is appropriate in all interactions since arriving at [facility]; Pt has demonstrated appropriate coping and communication skills, has articulated his or her needs and concerns and is fully engaged during staff interactions. Safety plan has been established with patient, and care team, to adhere to patient goals, identify restrictions based on behavioral status, address nutrition, and determine allowed personal belongings, tools for hygiene and personal care. Determine level of activity including ambulation, level of supervision, visitors, and determine privileges based on behaviors and level of engagement by pt. VOLUNTARY SAFETY PLAN: 1. Will remain on suicide precautions, in paper clothes 2. Will remain in Zone B under direct supervision of one-on-one staff at all times provided by [employer]; [employer], CONTRACT SHELTERED WORKSHOP SUPERVISOR spectrograph operator. 3. May have paper cups, plates, finger foods as well as a cardboard spoon with which to eat meals. 4. Follow [facility] Management of the Admitted Behavioral Health Patient policy. 5. Shower available in Zone B without restriction. 6. Personal belongings-soft items permitted at RN discretion. 7. Visitors- supportive visitors, at RN discretion. 8. Activities: soft cart items approved per RN discretion. 9.? Bathroom available in Zone B without restriction. 10. Phone: limited to [facility] cordless phone at RN discretion. Due to VOLUNTARY status, if patient wishes to leave [facility], staff will contact [facility] Crisis Screener ([phone]) and Crew Car Driver ([phone]) as soon as possible. In the event of elopement, notify [facility] Police ([phone]). Patient is currently voluntarily at [facility] and seeking inpatient admission when a bed becomes available. [facility] Frontline Deputy County Attorney will continue seeking placement. Please contact the Crew Car Driver ([phone]) and [facility] Deputy County Attorney ([phone]) for any needed changes in the Safety Plan. Safety plan has been provided to interdepartmental care team.
--- NOTE | 2024-12-09 18:52 | PDOC.MHCN ---
Date of service: 12/09/24 Time of Service: 13:14 Mental Health Emergency Note Release [facility] release signed:: Yes Reason for Visit Sandra is seeking voluntary inpatient treatment. In the last 2 weeks has the pt presented for ES prior to today?: Unknown Client Information Client is: New Well Housed: Yes Non Suicidal Self Injury Current: No History: No Safety Risk/Harm to Self or Others Current Ideation to Harm Self or Others: No Risk: Does risk to harm exist?: No Risk: N/A Duty to warn indicated: No Asssessment/Mental Status Appearance: Disheveled Attitude: Guarded Behavior: Gait disturbances Speech: Normal Affect: Cogruent with mood Mood: Sad, Stressed, Depressed and Anxious Thought process: Unremarkable Hallucinations: No evidence Delusions: No evidence Attention: Unremarkable Perception: Not impaired Orientation: Fully orientated Memory: Intact Insight: Fair Judgement: Fair Neurovegetative Symptoms Sleep: Decrease Appetitie: Decrease Interests: No change Energy: No change Libido: Not applicable Substance Use: Do you use nicotine?: No Have you used substances in the last 7 days?: No Additional Issues: Assaultive/Threatening Behavior: No Medical Concerns: No Client engaged in active self harm w/weapon: No Threatening to run away: No Child reported abuse/neglect: No Voluntarily presenting for services: Yes Domestic violence is a concern: No Impression Sandra presents to this communications writer in paper scrubs, wrapped in a blanket, sitting on her hospital bed. Sandra reports that she is the same as yesterday and instantly became tearful. Sandra reports that she did not sleep well and she is not doing well. Sandra reports she feels heavy and like the world is on her shoulders. Sandra also reports that she does not see the light at the end of the tunnel and she does not feel like she will come out of it. Sandra reports today would be a great day to drink. Sandra has not been sleeping well and has been unable to eat. Sandra re-expressed her want for inpatient treatment or the carved but also expressed that she does NOT Want to go to [facility]. This communications writer reminded her we send referrals everywhere and we could discuss if that came up. Resources Reosurces reviewed and given:: Crisis Bed Plan/Disposition Recommended Disposition: Crisis bed, facility contacted. Status of Crisis Bed acceptance: Pending review and Hospitalization facilities contacted. Plan: Sandra will wait at [facility] until voluntary treatment can be secured. Person reported agreement to plan: Yes Reports/communication Outcome discussed with: ED/Personnel
[2024-12-09] MEDS: hydrOXYzine HCL 10 MG TAB PO (20:37)
[2024-12-09] MEDS: Prazosin 1 MG CAP PO (20:37)
[2024-12-09] MEDS: diazePAM 5 MG TAB 10 MG PO (20:38)
[2024-12-09] MEDS: QUEtiapine 100 MG TAB PO (20:38)
[2024-12-09] MEDS: Melatonin 3 MG TAB 6 MG PO (20:38)
[2024-12-09] MEDS: Famotidine 20 MG TAB PO (20:38)
--- NOTE | 2024-12-09 22:50 | ED.PROG_ITS ---
Date of service: 12/09/24 Time of Service: 22:50 Medical Decision Making This patient was signed out to me. Please see previous notes for H&P and initial eval. In brief, 69yo F presenting voluntarily with SI. Medically cleared, pending placement. Overnight no acute events. Will be signed out to oncoming physician, plan remains as above. Quality:SDOH Health Related Social Needs: No Data to Display Discharge Plan Discharge Details Chief Complaint: PsychEval Clinical Impression: Depression Primary Care Provider: Unknown,Unknown ED Provider: Charissa Alcaraz Home Meds and New Rx's Prescriptions: No Action melatonin 3 mg Tablet 6 mg PO DAILY quetiapine [Seroquel] 100 mg Tablet 100 mg PO HS Patient Comments: LAST FILLED IN MAY FOR A 30 DAY SUPPLY -- DOUBTFUL SHE IS STILL SUPPOSED TO BE TAKING; [facility] 12/09 desvenlafaxine 100 mg tablet extended release 24 hr 100 mg PO DAILY Patient Comments: TAKE ONE TABLET BY MOUTH EVERY DAY diazepam 10 mg tablet 10 mg PO HS Patient Comments: TAKE ONE TABLET BY MOUTH EVERY NIGHT AT BEDTIME hydroxyzine HCl 10 mg tablet 10 mg PO QID PRN Patient Comments: TAKE ONE TABLET BY MOUTH FOUR TIMES A DAY NEEDED Rx Instructions: TAKE 1 TABLET BY MOUTH 4 TIMES A DAY NEEDED lamotrigine 25 mg tablet 25 mg PO DAILY Patient Comments: TAKE ONE TABLET BY MOUTH EVERY DAY prazosin 1 mg capsule 1 mg PO HS Patient Comments: TAKE ONE CAPSULE BY MOUTH AT BEDTIME levothyroxine 25 mcg tablet 25 mcg PO DAILY Patient Comments: TAKE ONE TABLET BY MOUTH EVERY DAY famotidine 20 mg tablet 20 mg PO BID Patient Comments: TAKE ONE TABLET BY MOUTH twice a day albuterol sulfate 90 mcg/actuation HFA aerosol inhaler 90 mcg INHALATION PRN PRN Patient Comments: INHALE TWO PUFFS BY MOUTH EVERY 4 HOURS NEEDED cholestyramine (with sugar) 4 gram powder 4 pwd PO DAILY Patient Comments: TAKE 1 SCOOP BY MOUTH TWICE A DAY
--- NOTE | 2024-12-10 07:57 | W.EDPROG ---
Date of service: 12/10/24 Time of Service: 07:57 Medical Decision Making I received signout on this 69-year-old female in the emergency department voluntarily in the setting of suicidal ideation. She is pending placement. No active behavioral issues last shift. 12:40 PM I spoke to Per from [facility]. He reported patient had been accepted to [place] today. I signed transfer paperwork patient will go via [facility]. Dr. Montalvo was accepting. Quality:[facility] Health Related Social Needs: No Data to Display Discharge Plan Discharge Details Chief Complaint: PsychEval Clinical Impression: Depression Primary Care Provider: Unknown,Unknown ED Provider: Danish Carlos [place] Meds and New Rx's Prescriptions: No Action melatonin 3 mg Tablet 6 mg PO DAILY quetiapine [Seroquel] 100 mg Tablet 100 mg PO HS Patient Comments: LAST FILLED IN MAY FOR A 30 DAY SUPPLY -- DOUBTFUL SHE IS STILL SUPPOSED TO BE TAKING; [facility] 12/09 desvenlafaxine 100 mg tablet extended release 24 hr 100 mg PO DAILY Patient Comments: TAKE ONE TABLET BY MOUTH EVERY DAY diazepam 10 mg tablet 10 mg PO HS Patient Comments: TAKE ONE TABLET BY MOUTH EVERY NIGHT AT BEDTIME hydroxyzine HCl 10 mg tablet 10 mg PO QID PRN Patient Comments: TAKE ONE TABLET BY MOUTH FOUR TIMES A DAY NEEDED Rx Instructions: TAKE 1 TABLET BY MOUTH 4 TIMES A DAY NEEDED lamotrigine 25 mg tablet 25 mg PO DAILY Patient Comments: TAKE ONE TABLET BY MOUTH EVERY DAY prazosin 1 mg capsule 1 mg PO HS Patient Comments: TAKE ONE CAPSULE BY MOUTH AT BEDTIME levothyroxine 25 mcg tablet 25 mcg PO DAILY Patient Comments: TAKE ONE TABLET BY MOUTH EVERY DAY famotidine 20 mg tablet 20 mg PO BID Patient Comments: TAKE ONE TABLET BY MOUTH twice a day albuterol sulfate 90 mcg/actuation HFA aerosol inhaler 90 mcg INHALATION PRN PRN Patient Comments: INHALE TWO PUFFS BY MOUTH EVERY 4 HOURS NEEDED cholestyramine (with sugar) 4 gram powder 1 pwd PO DAILY
[2024-12-10 08:25] VITALS: BP 92/58; PULSE 103; RESP 18; TEMP 36.4; O2SAT 95
[2024-12-10] MEDS: lamoTRIgine 25 MG TAB PO (08:26)
[2024-12-10] MEDS: Famotidine 20 MG TAB PO (08:26)
[2024-12-10] MEDS: Levothyroxine 25 MCG TAB PO (08:45)
[2024-12-10] MEDS: Cholestyramine/Aspartame PKT 1 EACH PO (09:50)
--- NOTE | 2024-12-10 12:40 | NUR.NOTE ---
Nursing Note: RN to RN handoff given to Renetta at [facility]. Awaiting transport at this time ~1330 estimated arrival.
--- NOTE | 2024-12-10 16:04 | PDOC.MHPN2 ---
Date of service: 12/10/24 Time of Service: 11:00 PHQ-9 Over the last 2 weeks, how often have you been bothered by any of the following problems? 1. Little interest or pleasure in doing things: nearly every day 2. Feeling down, depressed, or hopeless: nearly every day 3. Trouble falling or staying asleep, or sleeping too much: nearly every day 4. Feeling tired or having little energy: nearly every day 5. Poor appetite or overeating: nearly every day 6. Feeling bad about yourself - or that you are a failure or have let yourself and your family down: nearly every day 7. Trouble concentrating on things, such as reading the newspaper or watching television: nearly every day 8. Moving or speaking so slowly that other people could have noticed? - Or the opposite - being so fidgety or restless that you have been moving around a lot more than usual: nearly every day 9. Thoughts that you would be better off or of hurting yourself in some way: several days Total score: 25 If you checked off any problems, how difficult have these problems made it for you to do your work, take care of things at home, or get along with other people?: extremely difficult PHQ-9 Results: Positive Source: Developed by Drs. Khari Dalton, Alexandra Stephens, Calixto Echevarria and colleagues, with an educational phoenix from [employer]. Suicide Severity Rate CSSRS Have you wished you were or wished you could go to sleep and not wake up?: Yes Have you actually had any thoughts of killing yourself?: No CSSRS2 Have you been thinking about how you might do this?: No Have you had these thoughts and had some intention of acting on them?: No Have you started to work out or worked out the details of how to kill yourself? Do you intend to carry out this plan?: No CSSRS3 Have you ever done anything, started to do anything or prepared to do anything to end your life?: No CSSRS4 Was this within the past three months?: No Screening Score Total Score: 2 Screening: Positive Mental Health Emergency Note Release [facility] release signed:: Yes Reason for Visit Depression In the last 2 weeks has the pt presented for ES prior to today?: No Client Information Client is: New Well Housed: Yes Non Suicidal Self Injury Current: No History: No Safety Risk/Harm to Self or Others Current Ideation to Harm Self or Others: No Risk: Does risk to harm exist?: No Risk: N/A Duty to warn indicated: No Asssessment/Mental Status Appearance: Unremarkable and Well groomed Attitude: Cooperative, Guarded and Hostile Behavior: Unremarkable and Agitated Speech: Pressured and Soft Affect: Cogruent with mood Mood: Stressed and Depressed Thought process: Goal directed Hallucinations: No Delusions: No Attention: Unremarkable Perception: Not impaired Orientation: Fully orientated Memory: Intact Insight: Fair Judgement: Fair Neurovegetative Symptoms Sleep: No change Appetitie: Decrease Interests: Decrease Energy: Decrease Libido: Not applicable Substance Use: Do you use nicotine?: No Have you used substances in the last 7 days?: No Additional Issues: Assaultive/Threatening Behavior: No Medical Concerns: No Client engaged in active self harm w/weapon: No Threatening to run away: No Child reported abuse/neglect: No Voluntarily presenting for services: Yes Domestic violence is a concern: No Extreme Psychosis or extreme behavior is present: No Impression The client presents as working through grief and depression that are comorbid in nature. Resources Reosurces reviewed and given:: [id number], Crisis Bed and Community therapist Plan/Disposition Recommended Disposition: Crisis bed, facility contacted. Status of Crisis Bed acceptance: Not accepted/acuity. Plan: The client will go to [facility]. Person reported agreement to plan: Yes Facilities contacted if Applicable [facility] Accepted, Accepted/transfer pending. Information Sent to [facility]: Referral, Reports/communication Outcome discussed with: ED/Personnel Final Disposition/Discharge Final accepting facility/transferred to: [facility] Transportation Checklist completed and faxed: Yes Transport level: [facility]
== END 2024-12-10 13:55 ==
PROVIDERS: Emergency Medicine; Emergency Provider Emergency Medicine
DX: R45.851 Suicidal ideations (principal); F32.A Depression, unspecified; Z87.891 Personal history of nicotine dependence
CPT/HCPCS: 00123; 80053; 80307; 96127; 99285; 80320; 81003; 83735; 84443; 85025